=== PATIENT | male | born 1960 | race Caucasian/White ===

== ENCOUNTER 2017-12-09 04:55 | Emergency (ER) | payer MEDICAID, OTHER ==
[~2017-12-09] VITALS: Ht 167.6 cm; Wt 63.5 kg
[2017-12-09] MEDS ORDERED: LIDOCAINE 1% INJ 20 ML (XYLOCAINE) VIAL INJ STA (05:07)
[2017-12-09] MEDS ORDERED: AMIT25TA9 (05:15)
[2017-12-09] MEDS ORDERED: CYCL10TA9 (05:15)
[2017-12-09] MEDS ORDERED: TRAM50TA2 (05:15)
[2017-12-09] MEDS ORDERED: OXYC10TA7 (05:15)
[2017-12-09] MEDS ORDERED: LIDOCAINE 1% INJ 50 ML (XYLOCAINE) VIAL ONE (05:20)
--- NOTE | 2017-12-09 05:24 | ED Integumentary General ---
General Chief Complaint: Bite-Animal/Human/Insect Stated Complaint: POSS SPIDER BITE Source: patient Exam Limitations: no limitations History of Present Illness Date Seen by Provider: Dec 09, 2017 Time Seen by Provider: 05:02 Initial Comments Here with report of wound to the left knee just distal to the knee joint. This is been going on for about 5 days. States it was quite swollen before but he lanced is a little bit and now it is draining purulent material. He states when he lanced it drained quite a bit. Onset after having to by mouth and [place] bathroom floor. Denies fevers. Timing/Duration: week, getting worse Severity: moderate Location: extremities Associated Symptoms: change in skin texture, edema, No fever Allergies and Home Medications Allergies Coded Allergies: No Known Drug Allergies (Unverified , 12/09/17) Home Medications Sulfamethoxazole/Trimethoprim 1 Each Tablet, 1 EACH PO BID Prescribed by: ENDY CORDON on 12/09/17 0527 Patient Home Medication List Home Medication List Reviewed: Yes Constitutional: see HPI, No chills, No fever Respiratory: no symptoms reported Cardiovascular: no symptoms reported Gastrointestinal: no symptoms reported Skin: see HPI, change in color, lesions Psychiatric/Neurological: No Symptoms Reported Past Pjorzpl-Ugvhfs-Ytwsab Hx Patient Social History Alcohol Use: Occasionally Uses Recreational Drug Use: No Smoking Status: Current Everyday Smoker Type Used: Cigarettes 2nd Hand Smoke Exposure: Yes Recent Foreign Travel: No Contact w/Someone Who Travel: No Recent Hopitalizations: No Immunizations Up To Date Tetanus Booster (TDap): Unknown Seasonal Allergies Seasonal Allergies: No Surgeries History of Surgeries: Yes Surgeries: Abdominal, Appendectomy, Orthopedic Respiratory History of Respiratory Disorde: No Cardiovascular History of Cardiac Disorders: No Neurological History of Neurological Disord: No Genitourinary History of Genitourinary Disor: No Gastrointestinal History of Gastrointestinal Di: No Musculoskeletal History of Musculoskeletal Dis: No Endocrine History of Endocrine Disorders: No HEENT History of HEENT Disorders: No Cancer History of Cancer: No Psychosocial History of Psychiatric Problem: No Integumentary History of Skin or Integumenta: No Blood Transfusions History of Blood Disorders: No Reviewed Nursing Assessment Reviewed/Agree w Nursing PMH: Yes Family Medical History Significant Family History: No Pertinent Family Hx Physical Exam Vital Signs Vital Signs - First Documented 12/09/17 05:05 Temp 97.5 Pulse 84 Resp 18 B/P (MAP) 141/84 (103) Pulse Ox 95 O2 Delivery Room Air Capillary Refill : General Appearance: WD/WN, no apparent distress Cardiovascular: regular rate, rhythm, no murmur Respiratory: lungs clear, normal breath sounds Gastrointestinal: non tender, soft Extremities: swelling, other (tenderness just below the left knee where there is a wound described below) Neurologic/Psychiatric: alert, oriented x 3 Skin: warm/dry Skin Problem Location: lower extremities (just distal to the left knee) Skin Problem Character: abscess, drainage (foul-smelling purulent), erythema ( 4 x 4 centimeters), other (2 x 2 centimeter central wound started by 2 cm of induration and 4 cm of erythema.) I&D : Site: left knee distal to the joint anteriorly Blade Size: 11 I & D Procedure: betadine prep, sterile dressing applied, Wound Packing Packing/Drain: Idoform 10/03 Progress Anesthetized with 10 mL local 1 percent lidocaine plain. Good anesthesia. Open with 11 blade. Small amount of purulent drainage obtained. Cystic cavity removed. Packed with quarter inch iodoform and cover with antibiotic ointment and dressing. Progress/Results/Core Measures Results/Orders My Orders Orders - ENDY CORDON MD Lidocaine 1% Injection (Xylocaine 1% Inj (12/09/17 05:07) Wound Culture (12/09/17 05:07) Lidocaine 1% (Xylocaine 1%) (12/09/17 05:20) Sulfamethoxazole/Trimet Ds Tab (Bactrim (12/09/17 05:28) Medications Given in ED Current Medications Medications Dose Ordered Sig/Dor[place]a Route Start Time Stop Time Status Last Admin Dose Admin Lidocaine HCl 50 ml STK-MED ONCE .ROUTE 12/09/17 05:20 12/09/17 05:23 DC 12/09/17 05:25 50 ML Vital Signs/I&O Vital Sign - Last 12Hours 12/09/17 05:05 Temp 97.5 Pulse 84 Resp 18 B/P (MAP) 141/84 (103) Pulse Ox 95 O2 Delivery Room Air Progress Note : Progress Note Seen and evaluated. I&D left knee after cleaning and local anesthesia. Wound culture obtained. Wound packed and covered with sterile dressing. Bactrim DS one tab by mouth given. Discharged home with return precautions. Patient verbalize understanding instructions and agreement with plan. Departure Impression Impression: Primary Impression: Abscess Disposition: 01 HOME, SELF-CARE Condition: Improved Departure-Patient Inst. Decision time for Depature: 05:58 Referrals: NO,LOCAL PHYSICIAN (PCP) Primary Care Physician Patient Instructions: Abscess Incision and Drainage (DC) Add. Discharge Instructions: All discharge instructions reviewed with patient and/or family. Voiced understanding. Take antibiotics as directed. Follow-up with your Dr. in a few days for recheck. Return to days for packing removal. Return for worse pain, fever, increasing redness, increased swelling or other concerns as needed. You may shower but do not soak wound. Packing falls out, you may rinse the wound out twice daily and cover with antibiotic ointment and dressing until healed. Scripts Sulfamethoxazole/Trimethoprim (Sulfamethoxazole-Tmp Ds Tablet) 1 Each Tablet 1 EACH PO BID, #14 TAB 0 Refills Prov: ENDY CORDON MD 12/09/17 ENDY CORDON MD Dec 09, 2017 05:24
[2017-12-09] MEDS ORDERED: SULF-222 PO (05:27)
[2017-12-09] MEDS ORDERED: TRIM/SULFAMETH 160/800 (SEPTRA DS) TAB PO STA (05:28)
[2017-12-09 06:01] VITALS: BP 141/84
--- OUTSIDE RECORDS SUMMARY | 2017-12-09 10:51 | XMS REPORT ---
Author Author [facility] Medical Staff Organization [facility] [employer] [facility] Address [address] [place], [place] [address] Phone [phone] Care Team Providers Care Ripsaw Operator Name Role Phone LITA NELSON, ROBERT PP [phone] Summary purpose TRANSITION OF CARE AUTO GENERATION Chief Complaint and Reason for Visit No authorized Reason for Visit (Admitting Diagnosis) is available for this visit. Problem list No authorized problems tracked for continuity of care are available for this visit. Encounters No authorized problems tracked for encounter diagnoses are available for this visit. Medications No medications recorded for this patient visit Allergies, adverse reactions, alerts Allergen Category Ingredient Status Reaction Severity Onset No Known Drug Allergies No known drug allergies No Known Drug Allergies Confirmed or Verified Immunizations No immunizations recorded for this patient visit Relevant diagnostic tests and/or laboratory data RESULTS Radiology Results [id number] LOWER LEG XRAY - 2 VIEW PACs Image DATE OF EXAM: May 09 2015 RAD 0995-LOWER LEG XRAY-2 VIEW- RIGHT: RADIOLOGY REPORT DATE OF SERVICE: 05/09/15 HISTORY: Right lower leg pain. RIGHT TIBIA AND FIBULA AP AND LATERAL 1038 HOURS There is no fracture or foreign body. There is minimal periosteal new bone along the medial cortex of the tibia just proximal to the level of the midshaft. No foreign body is evident. IMPRESSION: No acute bony abnormality. Minimal periosteal reaction along the medial tibial shaft. Clinical correlation as to possible stress fracture is recommended. No acute fracture or foreign body. Nikolas Rojas MD MWCallie/me05/09/2015 12:05:00 / 05/09/2015 12:39:36 cc:Mehdi Murray PA-C This document has been electronically Signed by: On: DATE OF EXAM: May 09 2015 RAD 0995-LOWER LEG XRAY-2 VIEW- RIGHT: RADIOLOGY REPORT DATE OF SERVICE: 05/09/15 HISTORY: Right lower leg pain. RIGHT TIBIA AND FIBULA AP AND LATERAL 1038 HOURS There is no fracture or foreign body. There is minimal periosteal new bone along the medial cortex of the tibia just proximal to the level of the midshaft. No foreign body is evident. IMPRESSION: No acute bony abnormality. Minimal periosteal reaction along the medial tibial shaft. Clinical correlation as to possible stress fracture is recommended. No acute fracture or foreign body. Nikolas Rojas MD MWCallie/nh05/09/2015 12:05:00 / 05/09/2015 12:39:36 cc:Mehdi Murray PA-C This document has been electronically Signed by: NIKOLAS ROJAS On: May 09 20153:42P Result Amended on 2015-05-09 at 15:42:51. Previous status was [place]. History of procedures No procedures recorded for this patient visit. Functional status No functional or cognitive status observations are available for this visit. Vital signs No authorized vital signs are available for this visit. Social history No Social History or smoking status observations were recorded for this visit. ( Unknown if ever smoked.) Treatment Plan No treatment plan text is available for this visit. Hospital discharge instructions No discharge instruction text is available for this visit.
--- OUTSIDE RECORDS SUMMARY | 2017-12-09 10:51 | XMS REPORT ---
Author Author [facility] Medical Staff Organization [facility] [facility] Address [address] [place], [place] [address] Phone [phone] Care Team Providers Care Glove Maker Name Role Phone ROBERT LONDON MD PP [phone] Summary purpose TRANSITION OF CARE AUTO GENERATION Chief Complaint and Reason for Visit Admit Diagnosis 1 PAIN IN LIMB Problem list No authorized problems tracked for [...] tests and/or laboratory data RESULTS Radiology Results [id number] LOWER LEG XRAY - 2 VIEW PACs [...] fracture or foreign body. Nikolas Rojas MD MWCallie/tx05/09/2015 12:05:00 / 05/09/2015 12:39:36 cc:Jean Cardenas PA-C This document has been electronically Signed [...] fracture or foreign body. Nikolas Rojas MD MWD/nh05/09/2015 12:05:00 / 05/09/2015 12:39:36 cc:Jean Cardenas PA-C This document has been electronically Signed by: NIKOLAS ROJAS On: May 09 20153:42P Result Amended on 2015-05-09 at 15:42:51. Previous status was [place]. History of procedures Procedure Code Code Type Description Date Performed Performing Physician 18824 CPT-4 X-RAY EXAM OF LOWER LEG 05-09-2015 JEAN CARDENAS Functional status No functional or cognitive status [...]
--- OUTSIDE RECORDS SUMMARY | 2017-12-09 10:51 | XMS REPORT | Continuity of Care Document ---
Author Author [facility] Address Unknown Phone Unavailable Allergies Active Description Code Type Severity Reaction Onset Reported/Identified Relationship to Patient Clinical Status Yes No Known Drug Allergies [id number] ND N/A N/A Confirmed or Verified Medications There is no data. Problems Date Dx Coded Attending Type Code Diagnosis Diagnosed By 07/01/2013 LAURA CORRALES DO 724.2 BACK PAIN, LOWER 07/01/2013 LAURA CORRALES DO 724.2 BACK PAIN, LOWER 07/01/2013 LAURA CORRALES DO 724.2 BACK PAIN, LOWER 07/01/2013 ORLANDO MATHUR MD 724.2 BACK PAIN, LOWER 07/09/2013 LAURA CORRALES DO 724.4 BACK PAIN WITH RADIATION 07/09/2013 LAURA CORRALES DO 724.4 BACK PAIN WITH RADIATION 07/09/2013 ORLANDO MATHUR MD 724.4 BACK PAIN WITH RADIATION Procedures Code Description Performed By Performed On PHYSICAL PHYSICAL THERAPY, 07/05/2013 09255 MRI SPINE (LUMBAR) W/O CONTRAST 07/14/2013 26541 CBC 12/09/2013 70948 CRP 12/09/2013 [id number] GFR CALC (RESULT ONLY) 12/09/2013 33805 CMP 12/09/2013 Results There is no data. Encounters ACCT No. Visit Date/Time Discharge Status Pt. Type Provider Facility Loc./Unit Complaint [id number] 12/09/2013 14:17:00 12/09/2013 23:59:59 CLS Outpatient ORLANDO MATHUR MD [id number] 07/22/2013 09:42:00 07/22/2013 23:59:59 CLS Outpatient LAURA CORRALES DO [id number] 07/09/2013 11:32:00 07/09/2013 23:59:59 CLS Outpatient LAURA CORRALES DO [id number] 07/01/2013 08:46:00 07/01/2013 23:59:59 CLS Outpatient LAURA CORRALES DO [id number] 05/09/2015 10:21:00 05/09/2015 10:21:00 DIS Outpatient JEAN CARDENAS [facility] RAD [id number] 04/18/2015 12:58:00 04/18/2015 12:58:00 DIS Outpatient ABI PORRAS [facility] RAD [id number] 09/20/2014 15:28:00 09/20/2014 16:16:00 DIS Emergency LINDSEY SPARROW [facility] EMR [id number] 09/15/2014 08:25:00 09/15/2014 13:05:00 DIS Outpatient NEEMA ALFARO [facility] OPS
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
== END 2017-12-09 05:56 | disposition home or self-care (01) ==
LOC: ER 05:01
DX: L02.416 Cutaneous abscess of left lower limb (principal); F17.210 Nicotine dependence, cigarettes, uncomplicated; Z90.49 Acquired absence of other specified parts of digestive tract
CPT/HCPCS: 56420; 87070; 87077; 87186; 87205

== ENCOUNTER 2017-12-11 15:39 | Emergency (ER) | payer MEDICAID ==
[~2017-12-11] VITALS: Ht 165.1 cm; Wt 63.5 kg
[~2017-12-11 15:39] MED LIST: AMIT25TA9; CYCL10TA9; OXYC10TA7; SULF-222 PO; TRAM50TA2
--- OUTSIDE RECORDS SUMMARY | 2017-12-11 15:43 | XMS REPORT | Continuity of Care Document ---
Author Author [facility] Address Unknown Phone Unavailable Allergies Active Description Code Type Severity Reaction Onset Reported/Identified Relationship to Patient Clinical Status Yes No Known Drug Allergies [id number] ND N/A N/A Confirmed or Verified Medications [...] By Performed On PHYSICAL PHYSICAL THERAPY, 07/05/2013 79001 MRI SPINE (LUMBAR) W/O CONTRAST 07/14/2013 27731 CBC 12/09/2013 11160 CRP 12/09/2013 [id number] GFR CALC (RESULT ONLY) 12/09/2013 16220 CMP 12/09/2013 Results There is no data. Encounters ACCT No. Visit Date/Time Discharge Status Pt. Type Provider Facility Loc./Unit Complaint [id number] 12/09/2013 14:17:00 12/09/2013 23:59:59 CLS Outpatient ORLANDO MATHUR MD [id number] 07/22/2013 09:42:00 07/22/2013 23:59:59 CLS Outpatient LAURA CORRALES DO [id number] 07/09/2013 11:32:00 07/09/2013 23:59:59 CLS Outpatient LAURA CORRALES DO [id number] 07/01/2013 08:46:00 07/01/2013 23:59:59 CLS Outpatient LAURA CORRALES DO [id number] 05/09/2015 10:21:00 05/09/2015 10:21:00 DIS Outpatient JEAN CARDENAS [facility] RAD [id number] 04/18/2015 12:58:00 04/18/2015 12:58:00 DIS Outpatient ABI PORRAS [facility] RAD [id number] 09/20/2014 15:28:00 09/20/2014 16:16:00 DIS Emergency LINDSEY SPARROW [facility] EMR [id number] 09/15/2014 08:25:00 09/15/2014 13:05:00 DIS Outpatient NEEMA ALFARO [facility] OPS
--- NOTE | 2017-12-11 16:36 | ED Suture Removal/Wound Check ---
Suture/Wound Re-check Suture Removal/Wound Recheck : Suture Removal/Wound Recheck: Dry/sterile dressing-appl Progress Patient had an abscess drained 2 days ago in the ER and had it packed. Wound is healing remarkably well. He is not having any fevers, nausea, vomiting, chills. He is here for a wound check. He is taking his Bactrim antibiotics appropriately. General Appearance: WD/WN, no apparent distress, mild distress Neuro/Tendon: normal sensation, normal motor functions, normal tendon functions , responds to pain, no evidence tendon injury Skin Exam: other (packed healing wound over the left anterior knee. No erythema , purulence. Wound is clean.) Physical Exam Vital Signs Vital Signs - First Documented 12/11/17 15:53 Pulse 92 Resp 18 B/P (MAP) 138/98 Pulse Ox 99 Capillary Refill : General Appearance: WD/WN, no apparent distress HEENT: PERRL/EOMI, normal ENT inspection, TMs normal, pharynx normal Cardiovascular: normal peripheral pulses, regular rate, rhythm Respiratory: no respiratory distress, no accessory muscle use Extremities: normal range of motion, non-tender, normal capillary refill Neurologic/Psychiatric: alert, oriented x 3 Skin: other Departure Impression Impression: Primary Impression: Abscess Disposition: 01 HOME, SELF-CARE Condition: Improved Departure-Patient Inst. Decision time for Depature: 16:35 Referrals: NO,LOCAL PHYSICIAN (PCP) Primary Care Physician Patient Instructions: Wound Care (DC) Add. Discharge Instructions: Shower once or twice a day and allow soap water to run over the wound. If any of the packing comes out just trim it off. If the packing falls out then throw it away. Keep a clean dry gauze dressing over the wound. Change it daily or if it becomes soiled. Return to the ER if you begin to experience worsening redness , swelling at the site or if you have fevers, nausea, vomiting or other worrisome symptoms. Follow-up with your primary care physician the next couple weeks. All discharge instructions reviewed with patient and/or family. Voiced understanding. LILIBETH VEGAS Dec 11, 2017 16:36
[2017-12-11 16:43] VITALS: BP 138/98
== END 2017-12-11 16:43 | disposition home or self-care (01) ==
LOC: EDUNIT# 15:39 → ER 15:40
DX: L02.416 Cutaneous abscess of left lower limb (principal)

== ENCOUNTER 2018-05-17 02:48 | Emergency (ER) | payer MEDICAID ==
[~2018-05-17] VITALS: Ht 165.1 cm; Wt 61.2 kg
--- OUTSIDE RECORDS SUMMARY | 2018-05-17 02:56 | XMS REPORT | Clinical Summary ---
Author Author Admin, Lisa Organization [employer] Address Unknown Phone Unavailable Allergies, Adverse Reactions, Alerts Allergy Name Reaction Description Start Date Severity Status Provider No Known Allergies Chasidy Rizvi RN Conditions or Problems Problem Name Problem Code Onset Date Status Entry Date Provider Comment Standard Description Annotate HYPERTENSION 401.9 Active Bernardo Cotto MD Unspecified essential hypertension ABSCESS, TOOTH 522.5 Active Bernardo Cotto MD Periapical abscess without sinus Cough 786.2 Active Stefanie Britton APRN Cough Abdominal pain, generalized 789.07 Active Stefanie Britton APRN Abdominal pain, generalized Helicobacter pylori gastritis 535.40 Active Stefanie Britton APRN Other specified gastritis, without mention of hemorrhage FH Breast Cancer V16.3 Active Shira Gil APRN Family history of malignant neoplasm of breast GERD 530.81 Active Shira Gil APRN Esophageal reflux Change in bowels 787.99 Active Shira Gil APRN Other symptoms involving digestive system Medication List Medication Instructions Start Date Stop Date Generic Name NDC Status Provider Patient Instruction CARAFATE 1 GM TAB 1 QID SUCRALFATE 36810165046 No Longer Active Shira Gil APRN Active OMEPRAZOLE 20 MG CPDR 1 tablet by mouth twice daily OMEPRAZOLE 28751209245 No Longer Active Stefanie Britton APRN Active CLARITHROMYCIN 500 MG TABS 1 tablet by mouth twice daily CLARITHROMYCIN 56833207881 No Longer Active Stefanie Britton APRN Active AMOXICILLIN 500 MG CAPS 2 po BID x 10 days AMOXICILLIN 32222351461 No Longer Active Stefanie Yokum JEWELRY ESTIMATOR Active ZITHROMAX 250 MG TAB 2 po today, then 1 po q days 2-5 AZITHROMYCIN 72960544643 No Longer Active Stefanie Yokum JEWELRY ESTIMATOR Active AMOXICILLIN 500 MG CAP 1 tab by mouth 3 times daily x 10 days AMOXICILLIN 22162499427 No Longer Active Stefanie Yokum JEWELRY ESTIMATOR Active LORTAB 5 5-500 MG TABS 1 tablet by mouth every 6 hours as needed for pain HYDROCODONE-ACETAMINOPHEN 58793041944 No Longer Active Stefanie Yokum JEWELRY ESTIMATOR Active LORTAB 5 5-500 MG TABS 1 tablet by mouth every 6 hours as needed for pain LORTAB 5 5-500 MG TABS HYDROCODONE-ACETAMINOPHEN Inactive AMOXICILLIN 500 MG CAP 1 tab by mouth 3 times daily x 10 days AMOXICILLIN 500 MG CAP 778324 AMOXICILLIN Inactive CARAFATE 1 GM TAB 1 QID CARAFATE 1 GM TAB 079618 SUCRALFATE Inactive ZITHROMAX 250 MG TAB 2 po today, then 1 po q days 2-5 ZITHROMAX 250 MG TAB 8383607 AZITHROMYCIN Inactive AMOXICILLIN 500 MG CAPS 2 po BID x 10 days AMOXICILLIN 500 MG CAPS 469251 AMOXICILLIN Inactive CLARITHROMYCIN 500 MG TABS 1 tablet by mouth twice daily CLARITHROMYCIN 500 MG TABS 960362 CLARITHROMYCIN Inactive OMEPRAZOLE 20 MG CPDR 1 tablet by mouth twice daily OMEPRAZOLE 20 MG CPDR 203705 OMEPRAZOLE Inactive Vital Signs Date Name Value Unit Range Description blood pressure, diastolic - 8462-4 94 mm[Hg] BP naik blood pressure, systolic - 8480-6 161 mm[Hg] BP sys pulse rate E&M - 8867-4 73 /min Heart rate temperature E&M 98.9 [degF] Body temperature weight E&M - 3141-9 156 [lb_av] Weight Measured blood pressure, diastolic - 8462-4 87 mm[Hg] BP naik blood pressure, systolic - 8480-6 131 mm[Hg] BP sys pulse rate E&M - 8867-4 67 /min Heart rate temperature E&M 97.7 [degF] Body temperature weight E&M - 3141-9 156 [lb_av] Weight Measured blood pressure, diastolic - 8462-4 92 mm[Hg] BP naik blood pressure, systolic - 8480-6 138 mm[Hg] BP sys pulse rate E&M - 8867-4 74 /min Heart rate temperature E&M 99.1 [degF] Body temperature weight E&M - 3141-9 161 [lb_av] Weight Measured Diagnostic Results Date Name Value Unit Range Description Lab Report: CBC W/DIFF, Comp. Metabolic Panel, Myco Pneumo, RapidStrep R ... - Chemistry sodium, serum 137 mmol/L 899-687 0272/11/10 potassium, serum 3.9 mmol/L 3.5-5.2 chloride, serum 100 mmol/L 98-107 carbon dioxide, venous blood 27.8 mmol/L 21.0-32.0 blood glucose 149 mg/dL 65-110 urea nitrogen, blood 10 mg/dL 7-18 creatinine, serum 0.80 mg/dL 0.60-1.30 alanine aminotransferase (SGPT), serum 38 U/L 12-78 aspartate aminotransferase (SGOT), serum 49 U/L 15-37 calcium, serum 8.5 mg/dL 8.5-10.1 bilirubin, serum, total 0.70 mg/dL 0.00-1.00 Lab Report: CBC W/DIFF, Comp. Metabolic Panel, Myco Pneumo, RapidStrep R ... - Hematology leukocyte count, blood 9.4 10^3/MM^3 10*3/mm3 4.6-10.2 neutrophils as percent of blood leukocytes 72.4 % 42.2-75.2 monocytes as percent of blood leukocytes 9.2 % 1.7-9.3 lymphocytes as percent of blood leukocytes 15.0 % 20.5-51.1 erythrocyte (RBC) count 4.61 10^6/MM^3 10*6/mm3 4.69-6.13 hemoglobin, blood 16.4 g/dL 13.5-17.5 hematocrit, blood 47.6 % 41.0-53.0 mean corpuscular volume, RBC 103 fL 80-97 mean corpuscular hemoglobin, RBC 35.6 pg 27.0-31.2 mean corpuscular hemoglobin concentration, RBC 34.5 G/DL % 31.8- 35.4 red blood cell distribution width 12.5 % 11.6-14.8 platelet count 111 10^3/MM^3 10*3/mm3 142-424 Lab Report: CBC W/DIFF, Comp. Metabolic Panel, Myco Pneumo, RapidStrep R ... - Lab Microbial identification kit, rapid strep method Negative-Throat Culture to Follow Negative Lab Report: ALFREDO INFLUENZA A/B - Toxicology rapid flu test Negative Negative;Positive Encounters Code Encounter Date Provider Facility CPT-91053 Level 4 Est. 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 Patient 09:26:18 AMMONIA REFRIGERATION WORKER Stefanie Britton [facility] CPT-42037 Level 3 Est. Patient 12:50:55 CDT Bernardo Cotto MD [facility] Procedures Code Procedure Name Date Entry Date Standard Description CPT-OV Office Visit 14:52:05 AMMONIA REFRIGERATION WORKER CPT-OV Office Visit 16:11:48 AMMONIA REFRIGERATION WORKER CPT-20339 Chest 2V Frontal and Lat 15:38:01 AMMONIA REFRIGERATION WORKER
--- OUTSIDE RECORDS SUMMARY | 2018-05-17 02:56 | XMS REPORT | Clinical Summary ---
Author Author Admin, E Organization [employer] Address Unknown Phone Unavailable Allergies, Adverse Reactions, Alerts Allergy Name Reaction Description Start Date Severity Status Provider No Known Allergies DIONI Urbano Conditions or Problems Problem Name Problem Code Onset Date Status Entry Date Provider Comment Standard Description Annotate HYPERTENSION 401.9 Active Bernardo Cotto MD Unspecified essential hypertension ABSCESS, TOOTH 522.5 Active Bernardo Cotto MD Periapical abscess without sinus Cough 786.2 Active Stefanierubi Britton APRN Cough Abdominal pain, generalized 789.07 [...] CARAFATE 1 GM TAB 1 QID SUCRALFATE 74712510930 No Longer Active Shira Gil APRN Active OMEPRAZOLE 20 MG CPDR 1 tablet by mouth twice daily OMEPRAZOLE 11461217007 No Longer Active Stefanie Britton APRN Active CLARITHROMYCIN 500 MG TABS 1 tablet by mouth twice daily CLARITHROMYCIN 47919859130 No Longer Active Stefanie Britton APRN Active AMOXICILLIN 500 MG CAPS 2 po BID x 10 days AMOXICILLIN 08400299274 No Longer Active Stefanie Yokum LEVERS LACE MACHINE OPERATOR Active ZITHROMAX 250 MG TAB 2 po today, then 1 po q days 2-5 AZITHROMYCIN 80625639461 No Longer Active Stefanie Yokum LEVERS LACE MACHINE OPERATOR Active AMOXICILLIN 500 MG CAP 1 tab by mouth 3 times daily x 10 days AMOXICILLIN 92135680052 No Longer Active Stefanie Yokum LEVERS LACE MACHINE OPERATOR Active LORTAB 5 5-500 MG TABS 1 tablet by mouth every 6 hours as needed for pain HYDROCODONE-ACETAMINOPHEN 16791475145 No Longer Active Stefanie Yokum LEVERS LACE MACHINE OPERATOR Active LORTAB 5 5-500 MG TABS 1 tablet by mouth every 6 hours as needed for pain LORTAB 5 5-500 MG TABS HYDROCODONE-ACETAMINOPHEN Inactive AMOXICILLIN 500 MG CAP 1 tab by mouth 3 times daily x 10 days AMOXICILLIN 500 MG CAP 540002 AMOXICILLIN Inactive CARAFATE 1 GM TAB 1 QID CARAFATE 1 GM TAB 071591 SUCRALFATE Inactive ZITHROMAX 250 MG TAB 2 po today, then 1 po q days 2-5 ZITHROMAX 250 MG TAB 9797524 AZITHROMYCIN Inactive AMOXICILLIN 500 MG CAPS 2 po BID x 10 days AMOXICILLIN 500 MG CAPS 472674 AMOXICILLIN Inactive CLARITHROMYCIN 500 MG TABS 1 tablet by mouth twice daily CLARITHROMYCIN 500 MG TABS 998881 CLARITHROMYCIN Inactive OMEPRAZOLE 20 MG CPDR 1 tablet by mouth twice daily OMEPRAZOLE 20 MG CPDR 775011 OMEPRAZOLE Inactive Vital Signs Date Name Value [...] ... - Chemistry sodium, serum 137 mmol/L 149-993 3174/11/10 potassium, serum 3.9 mmol/L 3.5-5.2 chloride, serum [...] Myco Pneumo, RapidStrep R ... - Hematology hemoglobin, blood 16.4 g/dL 13.5-17.5 hematocrit, blood 47.6 % 41.0-53.0 mean corpuscular volume, RBC 103 fL 80-97 mean corpuscular hemoglobin, RBC 35.6 pg 27.0-31.2 mean corpuscular hemoglobin concentration, RBC 34.5 G/DL % 31.8- 35.4 red blood cell distribution width 12.5 % 11.6-14.8 platelet count 111 10^3/MM^3 10*3/mm3 733-949 9733/11/10 erythrocyte (RBC) count 4.61 10^6/MM^3 10*6/mm3 4.69-6.13 lymphocytes as percent of blood leukocytes 15.0 % 20.5-51.1 monocytes as percent of blood leukocytes 9.2 % 1.7-9.3 neutrophils as percent of blood leukocytes 72.4 % 42.2-75.2 leukocyte count, blood 9.4 10^3/MM^3 10*3/mm3 4.6-10.2 Lab Report: CBC W/DIFF, Comp. Metabolic Panel, Myco Pneumo, RapidStrep R ... - Lab Microbial identification kit, rapid strep method Negative-Throat Culture to Follow Negative Lab Report: ALFREDO INFLUENZA A/B - Toxicology rapid flu test Negative Negative;Positive Encounters Code Encounter Date Provider Facility CPT-23769 Level 4 Est. 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 Patient 09:26:18 WELDER FIRST CLASS Stefanie Britton [facility] CPT-66078 Level 3 Est. Patient 12:50:55 CDT Bernardo Cotto MD [facility] Procedures Code Procedure Name Date Entry Date Standard Description CPT-OV Office Visit 16:11:48 WELDER FIRST CLASS CPT-84071 Chest 2V Frontal and Lat 15:38:01 WELDER FIRST CLASS
--- OUTSIDE RECORDS SUMMARY | 2018-05-17 02:56 | XMS REPORT | Clinical Summary ---
Author Author Admin, E Organization [employer] Address Unknown Phone Unavailable Allergies, Adverse Reactions, [...] CARAFATE 1 GM TAB 1 QID SUCRALFATE 90736502141 No Longer Active Shira Gil APRN Active OMEPRAZOLE 20 MG CPDR 1 tablet by mouth twice daily OMEPRAZOLE 36116505442 No Longer Active Stefanie Britton APRN Active CLARITHROMYCIN 500 MG TABS 1 tablet by mouth twice daily CLARITHROMYCIN 87506065363 No Longer Active Stefanie Britton APRN Active AMOXICILLIN 500 MG CAPS 2 po BID x 10 days AMOXICILLIN 36438512806 No Longer Active Stefanie Yokum SENIOR INFORMATION SECURITY ARCHITECT Active ZITHROMAX 250 MG TAB 2 po today, then 1 po q days 2-5 AZITHROMYCIN 02186301181 No Longer Active Stefanie Yokum SENIOR INFORMATION SECURITY ARCHITECT Active AMOXICILLIN 500 MG CAP 1 tab by mouth 3 times daily x 10 days AMOXICILLIN 49351943367 No Longer Active Stefanie Yokum SENIOR INFORMATION SECURITY ARCHITECT Active LORTAB 5 5-500 MG TABS 1 tablet by mouth every 6 hours as needed for pain HYDROCODONE-ACETAMINOPHEN 05646862933 No Longer Active Stefanie Yokum SENIOR INFORMATION SECURITY ARCHITECT Active LORTAB 5 5-500 MG TABS 1 tablet by mouth every 6 hours as needed for pain LORTAB 5 5-500 MG TABS HYDROCODONE-ACETAMINOPHEN Inactive AMOXICILLIN 500 MG CAP 1 tab by mouth 3 times daily x 10 days AMOXICILLIN 500 MG CAP 805682 AMOXICILLIN Inactive CARAFATE 1 GM TAB 1 QID CARAFATE 1 GM TAB 679587 SUCRALFATE Inactive ZITHROMAX 250 MG TAB 2 po today, then 1 po q days 2-5 ZITHROMAX 250 MG TAB 3867792 AZITHROMYCIN Inactive AMOXICILLIN 500 MG CAPS 2 po BID x 10 days AMOXICILLIN 500 MG CAPS 347819 AMOXICILLIN Inactive CLARITHROMYCIN 500 MG TABS 1 tablet by mouth twice daily CLARITHROMYCIN 500 MG TABS 460433 CLARITHROMYCIN Inactive OMEPRAZOLE 20 MG CPDR 1 tablet by mouth twice daily OMEPRAZOLE 20 MG CPDR 520589 OMEPRAZOLE Inactive Vital Signs Date Name Value [...] ... - Chemistry sodium, serum 137 mmol/L 717-182 5579/11/10 potassium, serum 3.9 mmol/L 3.5-5.2 chloride, serum [...] Negative;Positive Encounters Code Encounter Date Provider Facility CPT-79124 Level 4 Est. 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 Patient 09:26:18 ELEMENTARY ELL TEACHER Stefanie Britton [facility] CPT-67537 Level 3 Est. Patient 12:50:55 CDT Bernardo Cotto MD [facility] Procedures Code Procedure Name Date Entry Date Standard Description CPT-OV Office Visit 16:11:48 ELEMENTARY ELL TEACHER CPT-60368 Chest 2V Frontal and Lat 15:38:01 ELEMENTARY ELL TEACHER
--- OUTSIDE RECORDS SUMMARY | 2018-05-17 02:56 | XMS REPORT | Clinical Summary ---
Author Author Admin, JOEE Organization [employer] Address Unknown Phone Unavailable Allergies, Adverse Reactions, Alerts Allergy Name Reaction Description Start Date Severity Status Provider No Known Allergies DIONI Tse Conditions or Problems Problem Name Problem Code Onset Date Status Entry Date Provider Comment Standard Description Annotate HYPERTENSION 401.9 Active Bernardo Cotto MD Unspecified essential hypertension ABSCESS, TOOTH 522.5 Active Bernardo Cotto MD Periapical abscess without sinus Cough 786.2 Active Stefanie Mauricioum DIP FILLER Cough Abdominal pain, generalized 789.07 Active Stefanie Yokum DIP FILLER Abdominal pain, generalized Medication List Medication Instructions Start Date Stop Date Generic Name NDC Status Provider Patient Instruction CARAFATE 1 GM TAB 1 QID SUCRALFATE 88085063845 Active Stefanie Yokum DIP FILLER Active ZITHROMAX 250 MG TAB 2 po today, then 1 po q days 2-5 AZITHROMYCIN 15863881221 No Longer Active Stefanie Yokum DIP FILLER Active AMOXICILLIN 500 MG CAP 1 tab by mouth 3 times daily x 10 days AMOXICILLIN 68861766550 No Longer Active Stefanie Yokum DIP FILLER Active LORTAB 5 5-500 MG TABS 1 tablet by mouth every 6 hours as needed for pain HYDROCODONE-ACETAMINOPHEN 92026430009 No Longer Active Stefanie Yokum DIP FILLER Active LORTAB 5 5-500 MG TABS 1 tablet by mouth every 6 hours as needed for pain LORTAB 5 5-500 MG TABS HYDROCODONE-ACETAMINOPHEN Inactive AMOXICILLIN 500 MG CAP 1 tab by mouth 3 times daily x 10 days AMOXICILLIN 500 MG CAP 923418 AMOXICILLIN Inactive ZITHROMAX 250 MG TAB 2 po today, then 1 po q days 2-5 ZITHROMAX 250 MG TAB 5063619 AZITHROMYCIN Inactive Vital Signs Date Name Value Unit Range Description blood pressure, diastolic - 8462-4 92 mm[Hg] [...] ... - Chemistry sodium, serum 137 mmol/L 243-841 5641/11/10 potassium, serum 3.9 mmol/L 3.5-5.2 chloride, serum [...] Negative;Positive Encounters Code Encounter Date Provider Facility CPT-08658 Level 4 Est. Patient 15:21:08 PROJECT MANAGEMENT PROFESSOR Stefanie Britton [facility] CPT-32046 Level 3 Est. Patient 09:26:18 PROJECT MANAGEMENT PROFESSOR Stefanie Britton [facility] CPT-51488 Level 3 Est. Patient 12:50:55 CDT Bernardo Cotto MD [facility] Procedures Code Procedure Name Date Entry Date Standard Description CPT-89134 Chest 2V Frontal and Lat 15:38:01 PROJECT MANAGEMENT PROFESSOR
--- OUTSIDE RECORDS SUMMARY | 2018-05-17 02:56 | XMS REPORT | Clinical Summary ---
Author Author Admin, E Organization [employer] Address Unknown Phone Unavailable Allergies, Adverse Reactions, [...] CARAFATE 1 GM TAB 1 QID SUCRALFATE 66962518684 No Longer Active Shira Gil APRN Active OMEPRAZOLE 20 MG CPDR 1 tablet by mouth twice daily OMEPRAZOLE 02559200638 No Longer Active Stefanie Britton APRN Active CLARITHROMYCIN 500 MG TABS 1 tablet by mouth twice daily CLARITHROMYCIN 71942956761 No Longer Active Stefanie Britton APRN Active AMOXICILLIN 500 MG CAPS 2 po BID x 10 days AMOXICILLIN 21905081206 No Longer Active Stefanie Yokum PUBLIC WELFARE WORKER Active ZITHROMAX 250 MG TAB 2 po today, then 1 po q days 2-5 AZITHROMYCIN 30814977664 No Longer Active Stefanie Yokum PUBLIC WELFARE WORKER Active AMOXICILLIN 500 MG CAP 1 tab by mouth 3 times daily x 10 days AMOXICILLIN 21342564976 No Longer Active Stefanie Yokum PUBLIC WELFARE WORKER Active LORTAB 5 5-500 MG TABS 1 tablet by mouth every 6 hours as needed for pain HYDROCODONE-ACETAMINOPHEN 84989148488 No Longer Active Stefanie Yokum PUBLIC WELFARE WORKER Active LORTAB 5 5-500 MG TABS 1 tablet by mouth every 6 hours as needed for pain LORTAB 5 5-500 MG TABS HYDROCODONE-ACETAMINOPHEN Inactive AMOXICILLIN 500 MG CAP 1 tab by mouth 3 times daily x 10 days AMOXICILLIN 500 MG CAP 074588 AMOXICILLIN Inactive CARAFATE 1 GM TAB 1 QID CARAFATE 1 GM TAB 179489 SUCRALFATE Inactive ZITHROMAX 250 MG TAB 2 po today, then 1 po q days 2-5 ZITHROMAX 250 MG TAB 8107923 AZITHROMYCIN Inactive AMOXICILLIN 500 MG CAPS 2 po BID x 10 days AMOXICILLIN 500 MG CAPS 656634 AMOXICILLIN Inactive CLARITHROMYCIN 500 MG TABS 1 tablet by mouth twice daily CLARITHROMYCIN 500 MG TABS 788771 CLARITHROMYCIN Inactive OMEPRAZOLE 20 MG CPDR 1 tablet by mouth twice daily OMEPRAZOLE 20 MG CPDR 455298 OMEPRAZOLE Inactive Vital Signs Date Name Value [...] ... - Chemistry sodium, serum 137 mmol/L 070-472 2375/11/10 potassium, serum 3.9 mmol/L 3.5-5.2 chloride, serum [...] Negative;Positive Encounters Code Encounter Date Provider Facility CPT-65678 Level 4 Est. 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 Patient 09:26:18 MARKETING ANALYTICS ANALYST Stefanie Britton [facility] CPT-94321 Level 3 Est. Patient 12:50:55 CDT Bernardo Cotto MD [facility] Procedures Code Procedure Name Date Entry Date Standard Description CPT-OV Office Visit 16:11:48 MARKETING ANALYTICS ANALYST CPT-67885 Chest 2V Frontal and Lat 15:38:01 MARKETING ANALYTICS ANALYST
--- OUTSIDE RECORDS SUMMARY | 2018-05-17 02:57 | XMS REPORT | Clinical Summary ---
Author Author Admin, Lisa Organization [employer] Address Unknown Phone Unavailable Allergies, Adverse Reactions, Alerts Allergy Name Reaction Description Start Date Severity Status Provider No Known Allergies Junie López MA Conditions or Problems Problem Name Problem Code [...] malignant neoplasm of breast GERD 530.81 Active Shria Gil APRN Esophageal reflux Change in bowels 787.99 Active Shira Gil APRN Other symptoms involving digestive system Medication List Medication Instructions Start Date Stop Date Generic Name NDC Status Provider Patient Instruction CARAFATE 1 GM TAB 1 QID SUCRALFATE 17770135296 No Longer Active Shira Gil APRN Active OMEPRAZOLE 20 MG CPDR 1 tablet by mouth twice daily OMEPRAZOLE 78261289375 No Longer Active Stefanie Britton APRN Active CLARITHROMYCIN 500 MG TABS 1 tablet by mouth twice daily CLARITHROMYCIN 18834009550 No Longer Active Stefanie Britton APRN Active AMOXICILLIN 500 MG CAPS 2 po BID x 10 days AMOXICILLIN 05876747793 No Longer Active Stefanie Yokum ASSEMBLER FITTER Active ZITHROMAX 250 MG TAB 2 po today, then 1 po q days 2-5 AZITHROMYCIN 73957592556 No Longer Active Stefanie Yokum ASSEMBLER FITTER Active AMOXICILLIN 500 MG CAP 1 tab by mouth 3 times daily x 10 days AMOXICILLIN 39640351184 No Longer Active Stefanie Yokum ASSEMBLER FITTER Active LORTAB 5 5-500 MG TABS 1 tablet by mouth every 6 hours as needed for pain HYDROCODONE-ACETAMINOPHEN 59380495477 No Longer Active Stefanie Yokum ASSEMBLER FITTER Active LORTAB 5 5-500 MG TABS 1 tablet by mouth every 6 hours as needed for pain LORTAB 5 5-500 MG TABS HYDROCODONE-ACETAMINOPHEN Inactive AMOXICILLIN 500 MG CAP 1 tab by mouth 3 times daily x 10 days AMOXICILLIN 500 MG CAP 683961 AMOXICILLIN Inactive CARAFATE 1 GM TAB 1 QID CARAFATE 1 GM TAB 197657 SUCRALFATE Inactive ZITHROMAX 250 MG TAB 2 po today, then 1 po q days 2-5 ZITHROMAX 250 MG TAB 4627995 AZITHROMYCIN Inactive AMOXICILLIN 500 MG CAPS 2 po BID x 10 days AMOXICILLIN 500 MG CAPS 996500 AMOXICILLIN Inactive CLARITHROMYCIN 500 MG TABS 1 tablet by mouth twice daily CLARITHROMYCIN 500 MG TABS 503342 CLARITHROMYCIN Inactive OMEPRAZOLE 20 MG CPDR 1 tablet by mouth twice daily OMEPRAZOLE 20 MG CPDR 880771 OMEPRAZOLE Inactive Vital Signs Date Name Value Unit Range Description blood pressure, diastolic - 8462-4 87 mm[Hg] [...] ... - Chemistry sodium, serum 137 mmol/L 405-824 5430/11/10 potassium, serum 3.9 mmol/L 3.5-5.2 chloride, serum [...] Myco Pneumo, RapidStrep R ... - Hematology erythrocyte (RBC) count 4.61 10^6/MM^3 10*6/mm3 4.69-6.13 hemoglobin, blood 16.4 g/dL 13.5-17.5 hematocrit, blood 47.6 % 41.0-53.0 mean corpuscular volume, RBC 103 fL 80-97 mean corpuscular hemoglobin, RBC 35.6 pg 27.0-31.2 mean corpuscular hemoglobin concentration, RBC 34.5 G/DL % 31.8- 35.4 red blood cell distribution width 12.5 % 11.6-14.8 platelet count 111 10^3/MM^3 10*3/mm3 782-098 2214/11/10 lymphocytes as percent of blood leukocytes 15.0 [...] Negative;Positive Encounters Code Encounter Date Provider Facility CPT-68877 Level 4 Est. 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 Patient 09:26:18 CUSTOMER FACILITIES SUPERVISOR Stefanie Britton [facility] CPT-41230 Level 3 Est. Patient 12:50:55 CDT Bernardo Cotto MD [facility] Procedures Code Procedure Name Date Entry Date Standard Description CPT-OV Office Visit 16:11:48 CUSTOMER FACILITIES SUPERVISOR CPT-00379 Chest 2V Frontal and Lat 15:38:01 CUSTOMER FACILITIES SUPERVISOR
--- OUTSIDE RECORDS SUMMARY | 2018-05-17 02:57 | XMS REPORT | Clinical Summary ---
Author Author Admin, JANI Organization [employer] Address Unknown Phone Unavailable Allergies, Adverse Reactions, Alerts Allergy Name Reaction Description Start Date Severity Status Provider No Known Allergies DIONI Tse Conditions or Problems Problem Name Problem Code Onset Date Status Entry Date Provider Comment Standard Description Annotate HYPERTENSION 401.9 Active Bernardo Cotto MD Unspecified essential hypertension ABSCESS, TOOTH 522.5 Active Bernardo Cotto MD Periapical abscess without sinus Cough 786.2 Active Stefanie Yokum PROGRAM PROPOSALS COORDINATOR Cough Medication List Medication Instructions Start Date Stop Date Generic Name NDC Status Provider Patient Instruction ZITHROMAX 250 MG TAB 2 po today, then 1 po q days 2-5 AZITHROMYCIN 78560157988 No Longer Active Stefanie Yokum PROGRAM PROPOSALS COORDINATOR Active AMOXICILLIN 500 MG CAP 1 tab by mouth 3 times daily x 10 days AMOXICILLIN 24807370609 No Longer Active Stefanie Yokum PROGRAM PROPOSALS COORDINATOR Active LORTAB 5 5-500 MG TABS 1 tablet by mouth every 6 hours as needed for pain HYDROCODONE-ACETAMINOPHEN 89962030826 No Longer Active Stefanie Yokum PROGRAM PROPOSALS COORDINATOR Active LORTAB 5 5-500 MG TABS 1 tablet by mouth every 6 hours as needed for pain LORTAB 5 5-500 MG TABS HYDROCODONE-ACETAMINOPHEN Inactive AMOXICILLIN 500 MG CAP 1 tab by mouth 3 times daily x 10 days AMOXICILLIN 500 MG CAP 919424 AMOXICILLIN Inactive ZITHROMAX 250 MG TAB 2 po today, then 1 po q days 2-5 ZITHROMAX 250 MG TAB 4664175 AZITHROMYCIN Inactive Vital Signs Date Name Value [...] ... - Chemistry sodium, serum 137 mmol/L 322-429 1293/11/10 potassium, serum 3.9 mmol/L 3.5-5.2 chloride, serum [...] Negative;Positive Encounters Code Encounter Date Provider Facility CPT-90116 Level 3 Est. Patient 09:26:18 CURB BUILDER Stefanie Britton APRN [facility] CPT-29906 Level 3 Est. Patient 12:50:55 CDT Bernardo Cotto MD [facility]
--- OUTSIDE RECORDS SUMMARY | 2018-05-17 02:57 | XMS REPORT ---
Author Author [facility] Medical Staff Organization [facility] Address [address] [place] [address] Phone [phone] Care Team Providers Care Medical Receptionist Medical Assistant Name Role Phone MEGHA CRUMP APRN PP [phone] Summary purpose TRANSITION OF CARE AUTO GENERATION Chief Complaint and Reason for Visit No authorized Reason for Visit (Admitting Diagnosis) is available for this visit. Problem list No authorized problems tracked for continuity of care are available for this visit. Encounters No authorized problems tracked for encounter diagnoses are available for this visit. Medications No home medications recorded for this patient visit Allergies, adverse reactions, alerts Allergen Category Ingredient Status Reaction Severity Onset No Known Drug Allergies No known drug allergies No Known Drug Allergies Confirmed or Verified Immunizations No immunizations recorded for this patient visit Relevant diagnostic tests and/or laboratory data No authorized results are available for this patient visit History of procedures No procedures recorded for this patient visit. Functional status No functional or cognitive status observations are available for this visit. Vital signs Type Value Date Respiration Rate 20breaths per minute :13 Pulse 62beats per minute :13 Oxygen Saturation 99% :13 BP Systolic 138mmHg [id number]:13 BP Diastolic 76mmHg 78-06-230294:13 Temperature 98.5F :13 Social history Type Value Smoking Status CURRENT EVERY DAY SMOKER Treatment Plan No treatment plan text is available for this visit. Hospital discharge instructions Dismissal Condition good Disposition on DC home DC Inst/Educ Give yes Med/Side Effects Rev yes
--- OUTSIDE RECORDS SUMMARY | 2018-05-17 02:57 | XMS REPORT | Clinical Summary ---
Author Author Admin, JOEE Organization [employer] Address Unknown Phone Unavailable Allergies, Adverse Reactions, [...] without sinus Cough 786.2 Active Stefanie Mauricioum PET CAREGIVER Cough Abdominal pain, generalized 789.07 Active Stefanie Yokum PET CAREGIVER Abdominal pain, generalized Medication List Medication Instructions Start Date Stop Date Generic Name NDC Status Provider Patient Instruction CARAFATE 1 GM TAB 1 QID SUCRALFATE 89062457432 Active Stefanie Yokum PET CAREGIVER Active ZITHROMAX 250 MG TAB 2 po today, then 1 po q days 2-5 AZITHROMYCIN 08005957547 No Longer Active Stefanie Yokum PET CAREGIVER Active AMOXICILLIN 500 MG CAP 1 tab by mouth 3 times daily x 10 days AMOXICILLIN 57568146040 No Longer Active Stefanie Yokum PET CAREGIVER Active LORTAB 5 5-500 MG TABS 1 tablet by mouth every 6 hours as needed for pain HYDROCODONE-ACETAMINOPHEN 18327526474 No Longer Active Stefanie Yokum PET CAREGIVER Active LORTAB 5 5-500 MG TABS 1 tablet by mouth every 6 hours as needed for pain LORTAB 5 5-500 MG TABS HYDROCODONE-ACETAMINOPHEN Inactive AMOXICILLIN 500 MG CAP 1 tab by mouth 3 times daily x 10 days AMOXICILLIN 500 MG CAP 260006 AMOXICILLIN Inactive ZITHROMAX 250 MG TAB 2 po today, then 1 po q days 2-5 ZITHROMAX 250 MG TAB 4518143 AZITHROMYCIN Inactive Vital Signs Date Name Value [...] ... - Chemistry sodium, serum 137 mmol/L 251-666 3391/11/10 potassium, serum 3.9 mmol/L 3.5-5.2 chloride, serum [...] Negative;Positive Encounters Code Encounter Date Provider Facility CPT-70190 Level 4 Est. Patient 15:21:08 MATERIALS ENGINEERING TECHNICIAN Stefanie Britton [facility] CPT-92458 Level 3 Est. Patient 09:26:18 MATERIALS ENGINEERING TECHNICIAN Stefanie Britton [facility] CPT-44558 Level 3 Est. Patient 12:50:55 CDT Bernardo Cotto MD [facility] Procedures Code Procedure Name Date Entry Date Standard Description CPT-43828 Chest 2V Frontal and Lat 15:38:01 MATERIALS ENGINEERING TECHNICIAN
--- OUTSIDE RECORDS SUMMARY | 2018-05-17 02:57 | XMS REPORT | Clinical Summary ---
Author Author Admin, JOEE Organization [employer] Address Unknown Phone Unavailable Allergies, Adverse Reactions, [...] abscess without sinus Cough 786.2 Active Stefanie Yokcarol TIER LIFT OPERATOR Cough Abdominal pain, generalized 789.07 Active Stefanie Reba TIER LIFT OPERATOR Abdominal pain, generalized Helicobacter pylori gastritis 535.40 Active Stefanie Britton TIER LIFT OPERATOR Other specified gastritis, without mention of hemorrhage FH Breast Cancer V16.3 Active Shira Gil TIER LIFT OPERATOR Family history of malignant neoplasm of breast GERD 530.81 Active Shira Gil TIER LIFT OPERATOR Esophageal reflux Change in bowels 787.99 Active Shira Gil APRN Other symptoms involving digestive system Bronchitis 490 Active Mike Stephens MD Bronchitis, not specified as acute or chronic Medication List Medication Instructions Start Date Stop Date Generic Name NDC Status Provider Patient Instruction GUAIFENESIN-CODEINE 100-10 MG/5ML SYRP 1 tsp PO q6h PRN cough GUAIFENESIN-CODEINE 04515505963 Active Mike Stephens MD Active ZITHROMAX Z-LOC 250 MG TABS 2 today, then 1 daily for 4 days 2014 AZITHROMYCIN 44024243256 No Longer Active Mike Stephens MD Active CARAFATE 1 GM TAB 1 QID SUCRALFATE 49101887509 No Longer Active Shira Gil TIER LIFT OPERATOR Active OMEPRAZOLE 20 MG CPDR 1 tablet by mouth twice daily OMEPRAZOLE 08016933635 No Longer Active Stefanie Yokum TIER LIFT OPERATOR Active CLARITHROMYCIN 500 MG TABS 1 tablet by mouth twice daily CLARITHROMYCIN 88021588821 No Longer Active Stefanie Yokum TIER LIFT OPERATOR Active AMOXICILLIN 500 MG CAPS 2 po BID x 10 days AMOXICILLIN 29512388637 No Longer Active Stefanie Yokum TIER LIFT OPERATOR Active ZITHROMAX 250 MG TAB 2 po today, then 1 po q days 2-5 AZITHROMYCIN 03508963048 No Longer Active Stefanie Yokum TIER LIFT OPERATOR Active AMOXICILLIN 500 MG CAP 1 tab by mouth 3 times daily x 10 days AMOXICILLIN 16147476449 No Longer Active Stefanie Yokum TIER LIFT OPERATOR Active LORTAB 5 5-500 MG TABS 1 tablet by mouth every 6 hours as needed for pain HYDROCODONE-ACETAMINOPHEN 35190319085 No Longer Active Stefanie Yokum TIER LIFT OPERATOR Active LORTAB 5 5-500 MG TABS 1 tablet by mouth every 6 hours as needed for pain LORTAB 5 5-500 MG TABS HYDROCODONE-ACETAMINOPHEN Inactive AMOXICILLIN 500 MG CAP 1 tab by mouth 3 times daily x 10 days AMOXICILLIN 500 MG CAP 304326 AMOXICILLIN Inactive CARAFATE 1 GM TAB 1 QID CARAFATE 1 GM TAB 844689 SUCRALFATE Inactive ZITHROMAX 250 MG TAB 2 po today, then 1 po q days 2-5 ZITHROMAX 250 MG TAB 7429915 AZITHROMYCIN Inactive AMOXICILLIN 500 MG CAPS 2 po BID x 10 days AMOXICILLIN 500 MG CAPS 743386 AMOXICILLIN Inactive CLARITHROMYCIN 500 MG TABS 1 tablet by mouth twice daily CLARITHROMYCIN 500 MG TABS 121737 CLARITHROMYCIN Inactive OMEPRAZOLE 20 MG CPDR 1 tablet by mouth twice daily OMEPRAZOLE 20 MG CPDR 532136 OMEPRAZOLE Inactive ZITHROMAX Z-LOC 250 MG TABS 2 today, then 1 daily for 4 days 2014 ZITHROMAX Z-LOC 250 MG TABS 3928799 AZITHROMYCIN Inactive Vital Signs Date Name Value Unit Range Description blood pressure, diastolic - 8462-4 91 mm[Hg] BP naik blood pressure, systolic - 8480-6 153 mm[Hg] BP sys pulse rate E&M - 8867-4 62 /min Heart rate temperature E&M 99 [degF] Body temperature weight E&M - 3141-9 157 [lb_av] Weight Measured blood pressure, diastolic - 8462-4 94 mm[Hg] [...] ... - Chemistry sodium, serum 137 mmol/L 706-961 6701/11/10 potassium, serum 3.9 mmol/L 3.5-5.2 chloride, serum [...] % 11.6-14.8 platelet count 111 10^3/MM^3 10*3/mm3 048-766 4493/11/10 lymphocytes as percent of blood leukocytes 15.0 [...] Negative;Positive Encounters Code Encounter Date Provider Facility CPT-35056 Level 3 Est. Patient 10:40:25 ECOMMERCE PROJECT MANAGER Mike Stephens MD [facility] CPT-31484 Level 4 Est. Patient 15:21:08 ECOMMERCE PROJECT MANAGER Stefanie Britton [facility] CPT-55829 Level 3 Est. Patient 09:26:18 ECOMMERCE PROJECT MANAGER Stefanie Britton [facility] CPT-59601 Level 3 Est. Patient 12:50:55 CDT Bernardo Cotto MD [facility] Procedures Code Procedure Name Date Entry Date Standard Description CPT-OV Office Visit 14:52:05 ECOMMERCE PROJECT MANAGER CPT-OV Office Visit 16:11:48 ECOMMERCE PROJECT MANAGER CPT-31575 Chest 2V Frontal and Lat 15:38:01 ECOMMERCE PROJECT MANAGER
--- OUTSIDE RECORDS SUMMARY | 2018-05-17 02:57 | XMS REPORT | Clinical Summary ---
Author Author Admin, QIE Organization [employer] Address Unknown Phone Unavailable Allergies, Adverse Reactions, [...] without sinus Cough 786.2 Active Stefanie Yokcarol GLOBAL CLIMATE CHANGE ANALYST Cough Abdominal pain, generalized 789.07 Active Stefanie Britton GLOBAL CLIMATE CHANGE ANALYST Abdominal pain, generalized Helicobacter pylori gastritis 535.40 Active Stefanie Britton GLOBAL CLIMATE CHANGE ANALYST Other specified gastritis, without mention of hemorrhage FH Breast Cancer V16.3 Active Shira Gil GLOBAL CLIMATE CHANGE ANALYST Family history of malignant neoplasm of breast GERD 530.81 Active Shira Gil GLOBAL CLIMATE CHANGE ANALYST Esophageal reflux Change in bowels 787.99 Active Shira Gil APRN Other symptoms involving digestive system Bronchitis 490 Active Mike Stephens MD Bronchitis, not specified as acute or chronic Medication List Medication Instructions Start Date Stop Date Generic Name NDC Status Provider Patient Instruction GUAIFENESIN-CODEINE 100-10 MG/5ML SYRP 1 tsp PO q6h PRN cough GUAIFENESIN-CODEINE 98407659801 Active Mike Stephens MD Active ZITHROMAX Z-LOC 250 MG TABS 2 today, then 1 daily for 4 days 2014 AZITHROMYCIN 97686255845 Active Mike Stephens MD Active CARAFATE 1 GM TAB 1 QID SUCRALFATE 28203987376 No Longer Active Shira Gil GLOBAL CLIMATE CHANGE ANALYST Active OMEPRAZOLE 20 MG CPDR 1 tablet by mouth twice daily OMEPRAZOLE 32836360204 No Longer Active Stefanierubi Martínezum GLOBAL CLIMATE CHANGE ANALYST Active CLARITHROMYCIN 500 MG TABS 1 tablet by mouth twice daily CLARITHROMYCIN 00512534814 No Longer Active Stefanie Yokum GLOBAL CLIMATE CHANGE ANALYST Active AMOXICILLIN 500 MG CAPS 2 po BID x 10 days AMOXICILLIN 94010104685 No Longer Active Stefanie Yokum GLOBAL CLIMATE CHANGE ANALYST Active ZITHROMAX 250 MG TAB 2 po today, then 1 po q days 2-5 AZITHROMYCIN 11813775054 No Longer Active Stefanie Yokum GLOBAL CLIMATE CHANGE ANALYST Active AMOXICILLIN 500 MG CAP 1 tab by mouth 3 times daily x 10 days AMOXICILLIN 97444987795 No Longer Active Stefanie Yokum GLOBAL CLIMATE CHANGE ANALYST Active LORTAB 5 5-500 MG TABS 1 tablet by mouth every 6 hours as needed for pain HYDROCODONE-ACETAMINOPHEN 25009596777 No Longer Active Stefanie Yokum GLOBAL CLIMATE CHANGE ANALYST Active LORTAB 5 5-500 MG TABS 1 tablet by mouth every 6 hours as needed for pain LORTAB 5 5-500 MG TABS HYDROCODONE-ACETAMINOPHEN Inactive AMOXICILLIN 500 MG CAP 1 tab by mouth 3 times daily x 10 days AMOXICILLIN 500 MG CAP 037362 AMOXICILLIN Inactive CARAFATE 1 GM TAB 1 QID CARAFATE 1 GM TAB 594028 SUCRALFATE Inactive ZITHROMAX 250 MG TAB 2 po today, then 1 po q days 2-5 ZITHROMAX 250 MG TAB 5112186 AZITHROMYCIN Inactive AMOXICILLIN 500 MG CAPS 2 po BID x 10 days AMOXICILLIN 500 MG CAPS 334721 AMOXICILLIN Inactive CLARITHROMYCIN 500 MG TABS 1 tablet by mouth twice daily CLARITHROMYCIN 500 MG TABS 544319 CLARITHROMYCIN Inactive OMEPRAZOLE 20 MG CPDR 1 tablet by mouth twice daily OMEPRAZOLE 20 MG CPDR 950142 OMEPRAZOLE Inactive Vital Signs Date Name Value [...] ... - Chemistry sodium, serum 137 mmol/L 885-052 2580/11/10 potassium, serum 3.9 mmol/L 3.5-5.2 chloride, serum [...] Negative;Positive Encounters Code Encounter Date Provider Facility CPT-82843 Level 3 Est. Patient 10:40:25 CABLE INSTALLER Mike Stephens MD [facility] CPT-70635 Level 4 Est. Patient 15:21:08 CABLE INSTALLER Stefanie Britton [facility] CPT-35095 Level 3 Est. Patient 09:26:18 CABLE INSTALLER Stefanie Britton [facility] CPT-42610 Level 3 Est. Patient 12:50:55 CDT Bernardo Cotto MD [facility] Procedures Code Procedure Name Date Entry Date Standard Description CPT-OV Office Visit 14:52:05 CABLE INSTALLER CPT-OV Office Visit 16:11:48 CABLE INSTALLER CPT-96469 Chest 2V Frontal and Lat 15:38:01 CABLE INSTALLER
--- OUTSIDE RECORDS SUMMARY | 2018-05-17 02:58 | XMS REPORT | Clinical Summary ---
Author Author Admin, JOEE Organization [employer] Address Unknown Phone Unavailable Allergies, Adverse Reactions, [...] without sinus Cough 786.2 Active Stefanie Mauricioum SOAP MIXER Cough Abdominal pain, generalized 789.07 Active Stefanie Yokum SOAP MIXER Abdominal pain, generalized Medication List Medication Instructions Start Date Stop Date Generic Name NDC Status Provider Patient Instruction CARAFATE 1 GM TAB 1 QID SUCRALFATE 65118965526 Active Stefanie Yokum SOAP MIXER Active ZITHROMAX 250 MG TAB 2 po today, then 1 po q days 2-5 AZITHROMYCIN 86764480921 No Longer Active Stefanie Yokum SOAP MIXER Active AMOXICILLIN 500 MG CAP 1 tab by mouth 3 times daily x 10 days AMOXICILLIN 00392779570 No Longer Active Stefanie Yokum SOAP MIXER Active LORTAB 5 5-500 MG TABS 1 tablet by mouth every 6 hours as needed for pain HYDROCODONE-ACETAMINOPHEN 35217821423 No Longer Active Stefanie Yokum SOAP MIXER Active LORTAB 5 5-500 MG TABS 1 tablet by mouth every 6 hours as needed for pain LORTAB 5 5-500 MG TABS HYDROCODONE-ACETAMINOPHEN Inactive AMOXICILLIN 500 MG CAP 1 tab by mouth 3 times daily x 10 days AMOXICILLIN 500 MG CAP 461564 AMOXICILLIN Inactive ZITHROMAX 250 MG TAB 2 po today, then 1 po q days 2-5 ZITHROMAX 250 MG TAB 4920072 AZITHROMYCIN Inactive Vital Signs Date Name Value [...] ... - Chemistry sodium, serum 137 mmol/L 561-030 4492/11/10 potassium, serum 3.9 mmol/L 3.5-5.2 chloride, serum [...] Negative;Positive Encounters Code Encounter Date Provider Facility CPT-66260 Level 4 Est. Patient 15:21:08 WATER PROOFER Stefanie Britton [facility] CPT-42142 Level 3 Est. Patient 09:26:18 WATER PROOFER Stefanie Britton [facility] CPT-22701 Level 3 Est. Patient 12:50:55 CDT Bernardo Cotto MD [facility] Procedures Code Procedure Name Date Entry Date Standard Description CPT-51274 Chest 2V Frontal and Lat 15:38:01 WATER PROOFER
--- OUTSIDE RECORDS SUMMARY | 2018-05-17 02:58 | XMS REPORT | Clinical Summary ---
Author Author Admin, JANI Organization [employer] Address Unknown Phone Unavailable Allergies, Adverse Reactions, [...] without sinus Cough 786.2 Active Stefanie Yokum SECURITY ATTENDANT Cough Abdominal pain, generalized 789.07 Active Stefanie Yokum SECURITY ATTENDANT Abdominal pain, generalized Medication List Medication Instructions Start Date Stop Date Generic Name NDC Status Provider Patient Instruction ZITHROMAX 250 MG TAB 2 po today, then 1 po q days 2-5 AZITHROMYCIN 69629721038 No Longer Active Stefanie Yokum SECURITY ATTENDANT Active AMOXICILLIN 500 MG CAP 1 tab by mouth 3 times daily x 10 days AMOXICILLIN 29894681833 No Longer Active Stefanie Yokum SECURITY ATTENDANT Active LORTAB 5 5-500 MG TABS 1 tablet by mouth every 6 hours as needed for pain HYDROCODONE-ACETAMINOPHEN 73048838958 No Longer Active Stefanie Yokum SECURITY ATTENDANT Active LORTAB 5 5-500 MG TABS 1 tablet by mouth every 6 hours as needed for pain LORTAB 5 5-500 MG TABS HYDROCODONE-ACETAMINOPHEN Inactive AMOXICILLIN 500 MG CAP 1 tab by mouth 3 times daily x 10 days AMOXICILLIN 500 MG CAP 926515 AMOXICILLIN Inactive ZITHROMAX 250 MG TAB 2 po today, then 1 po q days 2-5 ZITHROMAX 250 MG TAB 6028508 AZITHROMYCIN Inactive Vital Signs Date Name Value [...] ... - Chemistry sodium, serum 137 mmol/L 731-441 4296/11/10 potassium, serum 3.9 mmol/L 3.5-5.2 chloride, serum [...] Negative;Positive Encounters Code Encounter Date Provider Facility CPT-98826 Level 4 Est. Patient 15:21:08 RABBLER Stefanie Britton [facility] CPT-70524 Level 3 Est. Patient 09:26:18 RABBLER Stefanie Britton [facility] CPT-90133 Level 3 Est. Patient 12:50:55 CDT Bernardo Cotto MD [facility] Procedures Code Procedure Name Date Entry Date Standard Description CPT-35761 Chest 2V Frontal and Lat 15:38:01 RABBLER
--- OUTSIDE RECORDS SUMMARY | 2018-05-17 02:58 | XMS REPORT | Clinical Summary ---
Author Author Admin, JANI Organization [employer] Address Unknown Phone Unavailable Allergies, Adverse Reactions, [...] without sinus Cough 786.2 Active Stefanie Mauricioum PHARMACY DIRECTOR Cough Abdominal pain, generalized 789.07 Active Stefanie Yokum PHARMACY DIRECTOR Abdominal pain, generalized Helicobacter pylori gastritis 535.40 Active Stefanie Yokum PHARMACY DIRECTOR Other specified gastritis, without mention of hemorrhage Medication List Medication Instructions Start Date Stop Date Generic Name NDC Status Provider Patient Instruction OMEPRAZOLE 20 MG CPDR 1 tablet by mouth twice daily OMEPRAZOLE 43957959118 Active Stefanie Yokum PHARMACY DIRECTOR Active CLARITHROMYCIN 500 MG TABS 1 tablet by mouth twice daily CLARITHROMYCIN 36869363058 Active Stefanie Yokum PHARMACY DIRECTOR Active AMOXICILLIN 500 MG CAPS 2 po BID x 10 days AMOXICILLIN 16088595899 Active Stefanie Yokum PHARMACY DIRECTOR Active CARAFATE 1 GM TAB 1 QID SUCRALFATE 06559837001 Active Stefanie Yokum PHARMACY DIRECTOR Active ZITHROMAX 250 MG TAB 2 po today, then 1 po q days 2-5 AZITHROMYCIN 23978456660 No Longer Active Stefanie Yokum PHARMACY DIRECTOR Active AMOXICILLIN 500 MG CAP 1 tab by mouth 3 times daily x 10 days AMOXICILLIN 71150771097 No Longer Active Stefanie Yokum PHARMACY DIRECTOR Active LORTAB 5 5-500 MG TABS 1 tablet by mouth every 6 hours as needed for pain HYDROCODONE-ACETAMINOPHEN 95897689611 No Longer Active Stefanie Yokum PHARMACY DIRECTOR Active LORTAB 5 5-500 MG TABS 1 tablet by mouth every 6 hours as needed for pain LORTAB 5 5-500 MG TABS HYDROCODONE-ACETAMINOPHEN Inactive AMOXICILLIN 500 MG CAP 1 tab by mouth 3 times daily x 10 days AMOXICILLIN 500 MG CAP 248338 AMOXICILLIN Inactive ZITHROMAX 250 MG TAB 2 po today, then 1 po q days 2-5 ZITHROMAX 250 MG TAB 3112026 AZITHROMYCIN Inactive Vital Signs Date Name Value [...] ... - Chemistry sodium, serum 137 mmol/L 183-685 5761/11/10 potassium, serum 3.9 mmol/L 3.5-5.2 chloride, serum [...] Negative;Positive Encounters Code Encounter Date Provider Facility CPT-74014 Level 4 Est. Patient 15:21:08 COMMUNITY SERVICE OFFICER COORDINATOR Stefanie Britton [facility] CPT-99132 Level 3 Est. Patient 09:26:18 COMMUNITY SERVICE OFFICER COORDINATOR Stefanie Britton [facility] CPT-90805 Level 3 Est. Patient 12:50:55 CDT Bernardo Cotto MD [facility] Procedures Code Procedure Name Date Entry Date Standard Description CPT-76147 Chest 2V Frontal and Lat 15:38:01 COMMUNITY SERVICE OFFICER COORDINATOR
--- OUTSIDE RECORDS SUMMARY | 2018-05-17 02:58 | XMS REPORT | Clinical Summary ---
Author Author Admin, JANI Organization [email or web address] Address Unknown Phone Unavailable Allergies, Adverse Reactions, Alerts Allergy Name Reaction Description Start Date Severity Status Provider No Known Allergies Amber [place] Damir Conditions or Problems Problem Name Problem Code Onset Date Status Entry Date Provider Comment Standard Description Annotate HYPERTENSION 401.9 Active Bernardo Cotto MD Unspecified essential hypertension ABSCESS, TOOTH 522.5 Active Bernardo Cotto MD Periapical abscess without sinus Cough 786.2 Active Stefanie Yokum MANUFACTURING BAKER Cough Medication List Medication Instructions Start Date Stop Date Generic Name NDC Status Provider Patient Instruction ZITHROMAX 250 MG TAB 2 po today, then 1 po q days 2-5 AZITHROMYCIN 92682421579 Active Stefanie Yokum MANUFACTURING BAKER Active AMOXICILLIN 500 MG CAP 1 tab by mouth 3 times daily x 10 days AMOXICILLIN 48880572615 No Longer Active Stefanie Yokum MANUFACTURING BAKER Active LORTAB 5 5-500 MG TABS 1 tablet by mouth every 6 hours as needed for pain HYDROCODONE-ACETAMINOPHEN 46114117951 No Longer Active Stefanie Yokum MANUFACTURING BAKER Active LORTAB 5 5-500 MG TABS 1 tablet by mouth every 6 hours as needed for pain LORTAB 5 5-500 MG TABS HYDROCODONE-ACETAMINOPHEN Inactive AMOXICILLIN 500 MG CAP 1 tab by mouth 3 times daily x 10 days AMOXICILLIN 500 MG CAP 465490 AMOXICILLIN Inactive Diagnostic Results Date Name Value Unit Range Description Lab Report: CBC W/DIFF, Comp. Metabolic Panel, Myco Pneumo, RapidStrep R ... - Chemistry sodium, serum 137 mmol/L 014-080 7297/11/10 potassium, serum 3.9 mmol/L 3.5-5.2 chloride, serum [...] Panel, Myco Pneumo, RapidStrep R ... - Microbiology Microbial identification kit, rapid strep method Negative-Throat Culture to Follow Negative Lab Report: ALFREDO INFLUENZA A/B - Toxicology rapid flu test Negative Negative;Positive Encounters Code Encounter Date Provider Facility CPT-56474 Level 3 Est. Patient 09:26:18 ELECTRIC DEICER ASSEMBLER Stefanie Britton APRN [facility] CPT-08770 Level 3 Est. Patient 12:50:55 CDT Bernardo Cotto MD [facility]
--- OUTSIDE RECORDS SUMMARY | 2018-05-17 02:58 | XMS REPORT | Clinical Summary ---
Author Author Admin, JANI Organization [employer] Address Unknown Phone Unavailable Allergies, Adverse Reactions, [...] without sinus Cough 786.2 Active Stefanie Yokum GLAZE SPRAYER Cough Medication List Medication Instructions Start Date Stop Date Generic Name NDC Status Provider Patient Instruction ZITHROMAX 250 MG TAB 2 po today, then 1 po q days 2-5 AZITHROMYCIN 25098726498 Active Stefanie Yokum GLAZE SPRAYER Active AMOXICILLIN 500 MG CAP 1 tab by mouth 3 times daily x 10 days AMOXICILLIN 20130059856 No Longer Active Stefanie Yokum GLAZE SPRAYER Active LORTAB 5 5-500 MG TABS 1 tablet by mouth every 6 hours as needed for pain HYDROCODONE-ACETAMINOPHEN 68712417000 No Longer Active Stefanie Yokum GLAZE SPRAYER Active LORTAB 5 5-500 MG TABS 1 tablet by mouth every 6 hours as needed for pain LORTAB 5 5-500 MG TABS HYDROCODONE-ACETAMINOPHEN Inactive AMOXICILLIN 500 MG CAP 1 tab by mouth 3 times daily x 10 days AMOXICILLIN 500 MG CAP 587566 AMOXICILLIN Inactive Diagnostic Results Date Name Value Unit Range Description Lab Report: CBC W/DIFF, Comp. Metabolic Panel, Myco Pneumo, RapidStrep R ... - Chemistry sodium, serum 137 mmol/L 678-843 0295/11/10 potassium, serum 3.9 mmol/L 3.5-5.2 chloride, serum [...] Negative;Positive Encounters Code Encounter Date Provider Facility CPT-55700 Level 3 Est. Patient 09:26:18 GIZZARD PULLER Stefanie Britton APRN [facility] CPT-02490 Level 3 Est. Patient 12:50:55 CDT Bernardo Cotto MD [facility]
--- OUTSIDE RECORDS SUMMARY | 2018-05-17 02:58 | XMS REPORT | Clinical Summary ---
Author Author Admin, JOEE Organization [employer] Address Unknown Phone Unavailable Allergies, Adverse Reactions, [...] without sinus Cough 786.2 Active Stefanie Mauricioum HAT AND CAP DRYING ROOM ATTENDANT Cough Abdominal pain, generalized 789.07 Active Stefanie Yokum HAT AND CAP DRYING ROOM ATTENDANT Abdominal pain, generalized Medication List Medication Instructions Start Date Stop Date Generic Name NDC Status Provider Patient Instruction CARAFATE 1 GM TAB 1 QID SUCRALFATE 58480058965 Active Stefanie Yokum HAT AND CAP DRYING ROOM ATTENDANT Active ZITHROMAX 250 MG TAB 2 po today, then 1 po q days 2-5 AZITHROMYCIN 00764982311 No Longer Active Stefanie Yokum HAT AND CAP DRYING ROOM ATTENDANT Active AMOXICILLIN 500 MG CAP 1 tab by mouth 3 times daily x 10 days AMOXICILLIN 17858569150 No Longer Active Stefanie Yokum HAT AND CAP DRYING ROOM ATTENDANT Active LORTAB 5 5-500 MG TABS 1 tablet by mouth every 6 hours as needed for pain HYDROCODONE-ACETAMINOPHEN 64055453129 No Longer Active Stefanie Yokum HAT AND CAP DRYING ROOM ATTENDANT Active LORTAB 5 5-500 MG TABS 1 tablet by mouth every 6 hours as needed for pain LORTAB 5 5-500 MG TABS HYDROCODONE-ACETAMINOPHEN Inactive AMOXICILLIN 500 MG CAP 1 tab by mouth 3 times daily x 10 days AMOXICILLIN 500 MG CAP 820462 AMOXICILLIN Inactive ZITHROMAX 250 MG TAB 2 po today, then 1 po q days 2-5 ZITHROMAX 250 MG TAB 3964701 AZITHROMYCIN Inactive Vital Signs Date Name Value [...] ... - Chemistry sodium, serum 137 mmol/L 797-826 0503/11/10 potassium, serum 3.9 mmol/L 3.5-5.2 chloride, serum [...] Negative;Positive Encounters Code Encounter Date Provider Facility CPT-51174 Level 4 Est. Patient 15:21:08 GUM MIXER Stefanie Britton [facility] CPT-23493 Level 3 Est. Patient 09:26:18 GUM MIXER Stefanie Britton [facility] CPT-52035 Level 3 Est. Patient 12:50:55 CDT Bernardo Cotto MD [facility] Procedures Code Procedure Name Date Entry Date Standard Description CPT-78373 Chest 2V Frontal and Lat 15:38:01 GUM MIXER
--- OUTSIDE RECORDS SUMMARY | 2018-05-17 02:58 | XMS REPORT | Clinical Summary ---
Author Author Admin, AJNI Organization [employer] Address Unknown Phone Unavailable Allergies, Adverse Reactions, [...] without sinus Cough 786.2 Active Stefanie Yokum TECH ED/WOODSHOP TEACHER Cough Medication List Medication Instructions Start Date Stop Date Generic Name NDC Status Provider Patient Instruction ZITHROMAX 250 MG TAB 2 po today, then 1 po q days 2-5 AZITHROMYCIN 97487555678 Active Stefanie Yokum TECH ED/WOODSHOP TEACHER Active AMOXICILLIN 500 MG CAP 1 tab by mouth 3 times daily x 10 days AMOXICILLIN 95113134178 No Longer Active Stefanie Yokum TECH ED/WOODSHOP TEACHER Active LORTAB 5 5-500 MG TABS 1 tablet by mouth every 6 hours as needed for pain HYDROCODONE-ACETAMINOPHEN 00123640215 No Longer Active Stefanie Yokum TECH ED/WOODSHOP TEACHER Active LORTAB 5 5-500 MG TABS 1 tablet by mouth every 6 hours as needed for pain LORTAB 5 5-500 MG TABS HYDROCODONE-ACETAMINOPHEN Inactive AMOXICILLIN 500 MG CAP 1 tab by mouth 3 times daily x 10 days AMOXICILLIN 500 MG CAP 723377 AMOXICILLIN Inactive Diagnostic Results Date Name Value Unit Range Description Lab Report: CBC W/DIFF, Comp. Metabolic Panel, Myco Pneumo, RapidStrep R ... - Chemistry sodium, serum 137 mmol/L 512-492 7209/11/10 potassium, serum 3.9 mmol/L 3.5-5.2 chloride, serum [...] Negative;Positive Encounters Code Encounter Date Provider Facility CPT-65035 Level 3 Est. Patient 09:26:18 WET MIXER Stefanie Britton APRN [facility] CPT-33513 Level 3 Est. Patient 12:50:55 CDT Bernardo Cotto MD [facility]
--- OUTSIDE RECORDS SUMMARY | 2018-05-17 02:59 | XMS REPORT | Clinical Summary ---
Author Author Admin, Lisa Organization [employer] Address Unknown Phone Unavailable Allergies, Adverse Reactions, [...] CARAFATE 1 GM TAB 1 QID SUCRALFATE 01834567337 No Longer Active Shira Gil APRN Active OMEPRAZOLE 20 MG CPDR 1 tablet by mouth twice daily OMEPRAZOLE 48135254437 No Longer Active Stefanie Britton APRN Active CLARITHROMYCIN 500 MG TABS 1 tablet by mouth twice daily CLARITHROMYCIN 95666105100 No Longer Active Stefanie Britton APRN Active AMOXICILLIN 500 MG CAPS 2 po BID x 10 days AMOXICILLIN 24101695222 No Longer Active Stefanie Yokum BOILER HELPER Active ZITHROMAX 250 MG TAB 2 po today, then 1 po q days 2-5 AZITHROMYCIN 41321999194 No Longer Active Stefanie Yokum BOILER HELPER Active AMOXICILLIN 500 MG CAP 1 tab by mouth 3 times daily x 10 days AMOXICILLIN 56465956765 No Longer Active Stefanie Yokum BOILER HELPER Active LORTAB 5 5-500 MG TABS 1 tablet by mouth every 6 hours as needed for pain HYDROCODONE-ACETAMINOPHEN 95025073701 No Longer Active Stefanie Yokum BOILER HELPER Active LORTAB 5 5-500 MG TABS 1 tablet by mouth every 6 hours as needed for pain LORTAB 5 5-500 MG TABS HYDROCODONE-ACETAMINOPHEN Inactive AMOXICILLIN 500 MG CAP 1 tab by mouth 3 times daily x 10 days AMOXICILLIN 500 MG CAP 016723 AMOXICILLIN Inactive CARAFATE 1 GM TAB 1 QID CARAFATE 1 GM TAB 876619 SUCRALFATE Inactive ZITHROMAX 250 MG TAB 2 po today, then 1 po q days 2-5 ZITHROMAX 250 MG TAB 8150116 AZITHROMYCIN Inactive AMOXICILLIN 500 MG CAPS 2 po BID x 10 days AMOXICILLIN 500 MG CAPS 120307 AMOXICILLIN Inactive CLARITHROMYCIN 500 MG TABS 1 tablet by mouth twice daily CLARITHROMYCIN 500 MG TABS 772055 CLARITHROMYCIN Inactive OMEPRAZOLE 20 MG CPDR 1 tablet by mouth twice daily OMEPRAZOLE 20 MG CPDR 847314 OMEPRAZOLE Inactive Vital Signs Date Name Value [...] ... - Chemistry sodium, serum 137 mmol/L 267-356 2485/11/10 potassium, serum 3.9 mmol/L 3.5-5.2 chloride, serum [...] Negative;Positive Encounters Code Encounter Date Provider Facility CPT-21962 Level 4 Est. 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 Patient 09:26:18 WOOD HEEL FLAP INSERTER Stefanie Britton [facility] CPT-43111 Level 3 Est. Patient 12:50:55 CDT Bernardo Cotto MD [facility] Procedures Code Procedure Name Date Entry Date Standard Description CPT-OV Office Visit 16:11:48 WOOD HEEL FLAP INSERTER CPT-70941 Chest 2V Frontal and Lat 15:38:01 WOOD HEEL FLAP INSERTER
--- OUTSIDE RECORDS SUMMARY | 2018-05-17 02:59 | XMS REPORT | Clinical Summary ---
Author Author Admin, JANI Organization [employer] Address Unknown Phone Unavailable Allergies, Adverse Reactions, [...] without sinus Cough 786.2 Active Stefanie Yokum ESCORT PATIENTS Cough Abdominal pain, generalized 789.07 Active Stefanie Yokum ESCORT PATIENTS Abdominal pain, generalized Medication List Medication Instructions Start Date Stop Date Generic Name NDC Status Provider Patient Instruction ZITHROMAX 250 MG TAB 2 po today, then 1 po q days 2-5 AZITHROMYCIN 77163150204 No Longer Active Stefanie Yokum ESCORT PATIENTS Active AMOXICILLIN 500 MG CAP 1 tab by mouth 3 times daily x 10 days AMOXICILLIN 46571082492 No Longer Active Stefanie Yokum ESCORT PATIENTS Active LORTAB 5 5-500 MG TABS 1 tablet by mouth every 6 hours as needed for pain HYDROCODONE-ACETAMINOPHEN 30843494488 No Longer Active Stefanie Yokum ESCORT PATIENTS Active LORTAB 5 5-500 MG TABS 1 tablet by mouth every 6 hours as needed for pain LORTAB 5 5-500 MG TABS HYDROCODONE-ACETAMINOPHEN Inactive AMOXICILLIN 500 MG CAP 1 tab by mouth 3 times daily x 10 days AMOXICILLIN 500 MG CAP 380199 AMOXICILLIN Inactive ZITHROMAX 250 MG TAB 2 po today, then 1 po q days 2-5 ZITHROMAX 250 MG TAB 2671611 AZITHROMYCIN Inactive Vital Signs Date Name Value [...] ... - Chemistry sodium, serum 137 mmol/L 602-059 5300/11/10 potassium, serum 3.9 mmol/L 3.5-5.2 chloride, serum [...] Negative;Positive Encounters Code Encounter Date Provider Facility CPT-69549 Level 4 Est. Patient 15:21:08 SYSTEMS TEST TECHNICIAN Stefanie Britton [facility] CPT-98786 Level 3 Est. Patient 09:26:18 SYSTEMS TEST TECHNICIAN Stefanie Britton [facility] CPT-89037 Level 3 Est. Patient 12:50:55 CDT Bernardo Cotto MD [facility] Procedures Code Procedure Name Date Entry Date Standard Description CPT-09835 Chest 2V Frontal and Lat 15:38:01 SYSTEMS TEST TECHNICIAN
--- OUTSIDE RECORDS SUMMARY | 2018-05-17 02:59 | XMS REPORT | Clinical Summary ---
Author Author Admin, JANI Organization [employer] Address Unknown Phone Unavailable Allergies, Adverse Reactions, [...] without sinus Cough 786.2 Active Stefanie Yokum HOUSEKEEPING DEPARTMENT WORKER Cough Medication List Medication Instructions Start Date Stop Date Generic Name NDC Status Provider Patient Instruction ZITHROMAX 250 MG TAB 2 po today, then 1 po q days 2-5 AZITHROMYCIN 10503545803 No Longer Active Stefanie Yokum HOUSEKEEPING DEPARTMENT WORKER Active AMOXICILLIN 500 MG CAP 1 tab by mouth 3 times daily x 10 days AMOXICILLIN 08093494677 No Longer Active Stefanie Yokum HOUSEKEEPING DEPARTMENT WORKER Active LORTAB 5 5-500 MG TABS 1 tablet by mouth every 6 hours as needed for pain HYDROCODONE-ACETAMINOPHEN 66010090131 No Longer Active Stefanie Yokum HOUSEKEEPING DEPARTMENT WORKER Active LORTAB 5 5-500 MG TABS 1 tablet by mouth every 6 hours as needed for pain LORTAB 5 5-500 MG TABS HYDROCODONE-ACETAMINOPHEN Inactive AMOXICILLIN 500 MG CAP 1 tab by mouth 3 times daily x 10 days AMOXICILLIN 500 MG CAP 705116 AMOXICILLIN Inactive ZITHROMAX 250 MG TAB 2 po today, then 1 po q days 2-5 ZITHROMAX 250 MG TAB 6772290 AZITHROMYCIN Inactive Vital Signs Date Name Value Unit Range Description blood pressure, diastolic 92 mm[Hg] BP naik blood pressure, systolic 138 mm[Hg] BP sys pulse rate E&M 74 /min Heart rate temperature E&M 99.1 [degF] Body temperature weight E&M 161 [lb_av] Weight Measured Diagnostic Results Date Name Value Unit Range Description Lab Report: CBC W/DIFF, Comp. Metabolic Panel, Myco Pneumo, RapidStrep R ... - Chemistry sodium, serum 137 mmol/L 392-008 2292/11/10 potassium, serum 3.9 mmol/L 3.5-5.2 chloride, serum [...] Negative;Positive Encounters Code Encounter Date Provider Facility CPT-39751 Level 3 Est. Patient 09:26:18 LAW RESEARCHER Stefanie Britton APRN [facility] CPT-76633 Level 3 Est. Patient 12:50:55 CDT Bernardo Cotto MD [facility]
--- OUTSIDE RECORDS SUMMARY | 2018-05-17 02:59 | XMS REPORT | Clinical Summary ---
Author Author Admin, Lisa Organization [employer] Address Unknown Phone Unavailable Allergies, Adverse Reactions, [...] CARAFATE 1 GM TAB 1 QID SUCRALFATE 21230470107 No Longer Active Shira Gil APRN Active OMEPRAZOLE 20 MG CPDR 1 tablet by mouth twice daily OMEPRAZOLE 65460659004 Active Stefanie Britton APRN Active CLARITHROMYCIN 500 MG TABS 1 tablet by mouth twice daily CLARITHROMYCIN 63974200717 Active Stefanie Britton APRN Active AMOXICILLIN 500 MG CAPS 2 po BID x 10 days AMOXICILLIN 98183750263 Active Stefanie Yokum MANAGER METROLOGY Active ZITHROMAX 250 MG TAB 2 po today, then 1 po q days 2-5 AZITHROMYCIN 17440272473 No Longer Active Stefanie Yokum MANAGER METROLOGY Active AMOXICILLIN 500 MG CAP 1 tab by mouth 3 times daily x 10 days AMOXICILLIN 31608733966 No Longer Active Stefanie Yokum MANAGER METROLOGY Active LORTAB 5 5-500 MG TABS 1 tablet by mouth every 6 hours as needed for pain HYDROCODONE-ACETAMINOPHEN 55113062217 No Longer Active Stefanie Yokum MANAGER METROLOGY Active LORTAB 5 5-500 MG TABS 1 tablet by mouth every 6 hours as needed for pain LORTAB 5 5-500 MG TABS HYDROCODONE-ACETAMINOPHEN Inactive AMOXICILLIN 500 MG CAP 1 tab by mouth 3 times daily x 10 days AMOXICILLIN 500 MG CAP 255306 AMOXICILLIN Inactive CARAFATE 1 GM TAB 1 QID CARAFATE 1 GM TAB 535593 SUCRALFATE Inactive ZITHROMAX 250 MG TAB 2 po today, then 1 po q days 2-5 ZITHROMAX 250 MG TAB 2009569 AZITHROMYCIN Inactive Vital Signs Date Name Value [...] ... - Chemistry sodium, serum 137 mmol/L 715-873 7577/11/10 potassium, serum 3.9 mmol/L 3.5-5.2 chloride, serum [...] % 11.6-14.8 platelet count 111 10^3/MM^3 10*3/mm3 843-773 5813/11/10 erythrocyte (RBC) count 4.61 10^6/MM^3 10*6/mm3 4.69-6.13 [...] Negative;Positive Encounters Code Encounter Date Provider Facility CPT-42723 Level 4 Est. Patient 15:21:08 ANESTHESIOLOGY CRNA [facility] CPT-99635 Level 3 Est. Patient 09:26:18 ANESTHESIOLOGY CRNA [facility] CPT-51226 Level 3 Est. Patient 12:50:55 CDT Bernardo Cotto MD [facility] Procedures Code Procedure Name Date Entry Date Standard Description CPT-OV Office Visit 16:11:48 ANESTHESIOLOGY CRNA CPT-60909 Chest 2V Frontal and Lat 15:38:01 ANESTHESIOLOGY CRNA
--- OUTSIDE RECORDS SUMMARY | 2018-05-17 02:59 | XMS REPORT ---
Author Author [facility] Medical Staff Organization [facility] Address [address] [place] [address] Phone [phone] Care Team Providers Care Field Marketing Lead Name Role Phone LITA NELSON, ROBERT PP [phone] Summary purpose TRANSITION OF CARE AUTO GENERATION Chief Complaint and Reason for Visit Admit Diagnosis 1 GASTROSCOPY Admit Diagnosis 2 COLONOSCOPY Problem list No authorized problems tracked for continuity of care are available for this visit. Encounters The following conditions tracked for encounter diagnoses were recorded for this visit: Finding or Diagnosis Status Certainty Chronicity Onset *COLONOSCOPY Active *EGD Active Medications Home Medications Medication Directions Started Status Source clarithromycin 500 mg tablet 1 capsule oral 2 Times Daily for infection for 10 days Current Medication bottle label amoxicillin 500 mg capsule 2 tablet oral 2 Times Daily for stomach for 10 days Current Medication bottle label Allergies, adverse reactions, alerts Allergen Category Ingredient Status Reaction Severity Onset No Known Drug Allergies No known drug allergies No Known Drug Allergies Confirmed or Verified Immunizations No immunizations recorded for this patient visit Relevant diagnostic tests and/or laboratory data No authorized results are available for this patient visit History of procedures No procedures recorded for this patient visit. Functional status Functional Status Finding Observation Time Hearing Prob Loc none 66-00-513962:08 Vision Problems yes 83-25-399737:08 Vision Correct Dev glasses 28-71-663328:08 Ambulation Asst Dev none 06-57-205048:08 Range of Motion full 31-35-497309:05 Muscle Strength RUE 5 ROM full resist 53-52-650832:05 Muscle Strength RLE 5 ROM full resist 27-95-884261:05 Muscle Strength LUE 5 ROM full resist 26-85-291669:05 Muscle Strength LLE 5 ROM full resist 48-81-002810:05 Transfers assist x 1 89-10-441518:05 Ambulation in room 75-69-457688:05 Balance unsteady 80-58-101374:05 Bathing Assistance none 90-35-127560:08 Eating Assistance none 62-00-610636:08 Dressing Assistance none 33-39-457913:08 Toileting Assistance none 25-73-880829:08 Transfer Assistance none 01-61-220852:08 Decline Slf Care/Mob no :08 Phys Cond Stable yes :08 Cognitive Status Finding Observation Time Learning Ability comprehends well :30 Neurological no :30 Psychological no :30 Physical no :30 Hearing no :30 Sample Sewer Needed no :30 Sign Language no :30 Emotional no :30 Vision yes :30 Laguage no :30 Financial no :30 Vital signs Type Value Date Respiration Rate 18breaths per minute :15 Pulse 60beats per minute :15 Oxygen Saturation 99% 63-65-427077:15 BP Systolic 112mmHg 41-28-721494:15 BP Diastolic 76mmHg 21-15-463881:15 Temperature 96.6F 65-64-737785:05 Height 65inches :44 Weight 156LB 29-39-902465:44 Social history Type Value Smoking Status CURRENT EVERY DAY SMOKER Treatment Plan No treatment plan text is available for this visit. Hospital discharge instructions Valuables yes Valuable Type jewelry (describe) Comment: 1 gold colored necklace with cross pendant
--- OUTSIDE RECORDS SUMMARY | 2018-05-17 02:59 | XMS REPORT | Clinical Summary ---
Author Author Admin, Lisa Organization [employer] Address Unknown Phone Unavailable Allergies, Adverse Reactions, [...] CARAFATE 1 GM TAB 1 QID SUCRALFATE 56985135357 No Longer Active Shira Gil APRN Active OMEPRAZOLE 20 MG CPDR 1 tablet by mouth twice daily OMEPRAZOLE 78962074543 No Longer Active Stefanie Britton APRN Active CLARITHROMYCIN 500 MG TABS 1 tablet by mouth twice daily CLARITHROMYCIN 05077227864 No Longer Active Stefanie Britton APRN Active AMOXICILLIN 500 MG CAPS 2 po BID x 10 days AMOXICILLIN 14702985724 No Longer Active Stefanie Yokum HOTEL MAINTENANCE TECHNICIAN Active ZITHROMAX 250 MG TAB 2 po today, then 1 po q days 2-5 AZITHROMYCIN 62291262264 No Longer Active Stefanie Yokum HOTEL MAINTENANCE TECHNICIAN Active AMOXICILLIN 500 MG CAP 1 tab by mouth 3 times daily x 10 days AMOXICILLIN 46401183401 No Longer Active Stefanie Yokum HOTEL MAINTENANCE TECHNICIAN Active LORTAB 5 5-500 MG TABS 1 tablet by mouth every 6 hours as needed for pain HYDROCODONE-ACETAMINOPHEN 62938518140 No Longer Active Stefanie Yokum HOTEL MAINTENANCE TECHNICIAN Active LORTAB 5 5-500 MG TABS 1 tablet by mouth every 6 hours as needed for pain LORTAB 5 5-500 MG TABS HYDROCODONE-ACETAMINOPHEN Inactive AMOXICILLIN 500 MG CAP 1 tab by mouth 3 times daily x 10 days AMOXICILLIN 500 MG CAP 111048 AMOXICILLIN Inactive CARAFATE 1 GM TAB 1 QID CARAFATE 1 GM TAB 756642 SUCRALFATE Inactive ZITHROMAX 250 MG TAB 2 po today, then 1 po q days 2-5 ZITHROMAX 250 MG TAB 8934324 AZITHROMYCIN Inactive AMOXICILLIN 500 MG CAPS 2 po BID x 10 days AMOXICILLIN 500 MG CAPS 140136 AMOXICILLIN Inactive CLARITHROMYCIN 500 MG TABS 1 tablet by mouth twice daily CLARITHROMYCIN 500 MG TABS 119252 CLARITHROMYCIN Inactive OMEPRAZOLE 20 MG CPDR 1 tablet by mouth twice daily OMEPRAZOLE 20 MG CPDR 339471 OMEPRAZOLE Inactive Vital Signs Date Name Value [...] ... - Chemistry sodium, serum 137 mmol/L 652-586 6524/11/10 potassium, serum 3.9 mmol/L 3.5-5.2 chloride, serum [...] Negative;Positive Encounters Code Encounter Date Provider Facility CPT-70134 Level 4 Est. Patient 15:21:08 LINE SERVICE TECHNICIAN Stefanie Britton [facility] CPT-26051 Level 3 Est. Patient 09:26:18 LINE SERVICE TECHNICIAN Stefanie Britton [facility] CPT-17176 Level 3 Est. Patient 12:50:55 CDT Bernardo Cotto MD [facility] Procedures Code Procedure Name Date Entry Date Standard Description CPT-OV Office Visit 16:11:48 LINE SERVICE TECHNICIAN CPT-16573 Chest 2V Frontal and Lat 15:38:01 LINE SERVICE TECHNICIAN
--- OUTSIDE RECORDS SUMMARY | 2018-05-17 03:00 | XMS REPORT | Clinical Summary ---
Author Author Admin, JANI Organization [employer] Address Unknown Phone Unavailable Allergies, Adverse Reactions, [...] without sinus Cough 786.2 Active Stefanie Mauricioum ASSISTANT HEAD CASHIER Cough Abdominal pain, generalized 789.07 Active Stefanie Yokum ASSISTANT HEAD CASHIER Abdominal pain, generalized Helicobacter pylori gastritis 535.40 Active Stefanie Yokum ASSISTANT HEAD CASHIER Other specified gastritis, without mention of hemorrhage Medication List Medication Instructions Start Date Stop Date Generic Name NDC Status Provider Patient Instruction OMEPRAZOLE 20 MG CPDR 1 tablet by mouth twice daily OMEPRAZOLE 99075770485 Active Stefanie Yokum ASSISTANT HEAD CASHIER Active CLARITHROMYCIN 500 MG TABS 1 tablet by mouth twice daily CLARITHROMYCIN 67155911214 Active Stefanie Yokum ASSISTANT HEAD CASHIER Active AMOXICILLIN 500 MG CAPS 2 po BID x 10 days AMOXICILLIN 88961365735 Active Stefanie Yokum ASSISTANT HEAD CASHIER Active CARAFATE 1 GM TAB 1 QID SUCRALFATE 87092758463 Active Stefanie Yokum ASSISTANT HEAD CASHIER Active ZITHROMAX 250 MG TAB 2 po today, then 1 po q days 2-5 AZITHROMYCIN 83921082169 No Longer Active Stefanie Yokum ASSISTANT HEAD CASHIER Active AMOXICILLIN 500 MG CAP 1 tab by mouth 3 times daily x 10 days AMOXICILLIN 80602237175 No Longer Active Stefanie Yokum ASSISTANT HEAD CASHIER Active LORTAB 5 5-500 MG TABS 1 tablet by mouth every 6 hours as needed for pain HYDROCODONE-ACETAMINOPHEN 56896745412 No Longer Active Stefanie Yokum ASSISTANT HEAD CASHIER Active LORTAB 5 5-500 MG TABS 1 tablet by mouth every 6 hours as needed for pain LORTAB 5 5-500 MG TABS HYDROCODONE-ACETAMINOPHEN Inactive AMOXICILLIN 500 MG CAP 1 tab by mouth 3 times daily x 10 days AMOXICILLIN 500 MG CAP 853211 AMOXICILLIN Inactive ZITHROMAX 250 MG TAB 2 po today, then 1 po q days 2-5 ZITHROMAX 250 MG TAB 6760896 AZITHROMYCIN Inactive Vital Signs Date Name Value [...] ... - Chemistry sodium, serum 137 mmol/L 825-568 5612/11/10 potassium, serum 3.9 mmol/L 3.5-5.2 chloride, serum [...] Negative;Positive Encounters Code Encounter Date Provider Facility CPT-10820 Level 4 Est. Patient 15:21:08 ARABIC PROFESSOR Stefanie Britton [facility] CPT-42749 Level 3 Est. Patient 09:26:18 ARABIC PROFESSOR Stefanie Britton [facility] CPT-97194 Level 3 Est. Patient 12:50:55 CDT Bernardo Cotto MD [facility] Procedures Code Procedure Name Date Entry Date Standard Description CPT-57399 Chest 2V Frontal and Lat 15:38:01 ARABIC PROFESSOR
--- OUTSIDE RECORDS SUMMARY | 2018-05-17 03:00 | XMS REPORT | Clinical Summary ---
Author Author Admin, JANI Organization [email or web address] Address Unknown Phone Unavailable Allergies, Adverse Reactions, [...] without sinus Cough 786.2 Active Stefanie Yokum PROCESSING SPEC Cough Abdominal pain, generalized 789.07 Active Stfeanie Yokum PROCESSING SPEC Abdominal pain, generalized Medication List Medication Instructions Start Date Stop Date Generic Name NDC Status Provider Patient Instruction ZITHROMAX 250 MG TAB 2 po today, then 1 po q days 2-5 AZITHROMYCIN 94364918343 No Longer Active Stefanie Yokum PROCESSING SPEC Active AMOXICILLIN 500 MG CAP 1 tab by mouth 3 times daily x 10 days AMOXICILLIN 28591344700 No Longer Active Stefanie Yokum PROCESSING SPEC Active LORTAB 5 5-500 MG TABS 1 tablet by mouth every 6 hours as needed for pain HYDROCODONE-ACETAMINOPHEN 90588639539 No Longer Active Stefanie Yokum PROCESSING SPEC Active LORTAB 5 5-500 MG TABS 1 tablet by mouth every 6 hours as needed for pain LORTAB 5 5-500 MG TABS HYDROCODONE-ACETAMINOPHEN Inactive AMOXICILLIN 500 MG CAP 1 tab by mouth 3 times daily x 10 days AMOXICILLIN 500 MG CAP 525131 AMOXICILLIN Inactive ZITHROMAX 250 MG TAB 2 po today, then 1 po q days 2-5 ZITHROMAX 250 MG TAB 5499298 AZITHROMYCIN Inactive Vital Signs Date Name Value [...] ... - Chemistry sodium, serum 137 mmol/L 994-273 8758/11/10 potassium, serum 3.9 mmol/L 3.5-5.2 chloride, serum [...] Negative;Positive Encounters Code Encounter Date Provider Facility CPT-40043 Level 4 Est. Patient 15:21:08 DIRECTOR LABOR STANDARDS Stefanie Britton [facility] CPT-40974 Level 3 Est. Patient 09:26:18 DIRECTOR LABOR STANDARDS Stefanie Britton [facility] CPT-76800 Level 3 Est. Patient 12:50:55 CDT Bernardo Cotto MD [facility] Procedures Code Procedure Name Date Entry Date Standard Description CPT-55803 Chest 2V Frontal and Lat 15:38:01 DIRECTOR LABOR STANDARDS
--- OUTSIDE RECORDS SUMMARY | 2018-05-17 03:00 | XMS REPORT | Clinical Summary ---
Author Author Admin, JANI Organization [employer] Address Unknown Phone Unavailable Allergies, Adverse Reactions, [...] without sinus Cough 786.2 Active Stefanie Mauricioum WORKERS COMPENSATION ATTORNEY Cough Abdominal pain, generalized 789.07 Active Stefanie Yokum WORKERS COMPENSATION ATTORNEY Abdominal pain, generalized Helicobacter pylori gastritis 535.40 Active Stefanie Yokum WORKERS COMPENSATION ATTORNEY Other specified gastritis, without mention of hemorrhage Medication List Medication Instructions Start Date Stop Date Generic Name NDC Status Provider Patient Instruction OMEPRAZOLE 20 MG CPDR 1 tablet by mouth twice daily OMEPRAZOLE 41282830128 Active Stefanie Yokum WORKERS COMPENSATION ATTORNEY Active CLARITHROMYCIN 500 MG TABS 1 tablet by mouth twice daily CLARITHROMYCIN 03798667761 Active Stefanie Yokum WORKERS COMPENSATION ATTORNEY Active AMOXICILLIN 500 MG CAPS 2 po BID x 10 days AMOXICILLIN 45755854707 Active Stefanie Yokum WORKERS COMPENSATION ATTORNEY Active CARAFATE 1 GM TAB 1 QID SUCRALFATE 87715120299 Active Stefanie Yokum WORKERS COMPENSATION ATTORNEY Active ZITHROMAX 250 MG TAB 2 po today, then 1 po q days 2-5 AZITHROMYCIN 86145775556 No Longer Active Stefanie Yokum WORKERS COMPENSATION ATTORNEY Active AMOXICILLIN 500 MG CAP 1 tab by mouth 3 times daily x 10 days AMOXICILLIN 88663343970 No Longer Active Stefanie Yokum WORKERS COMPENSATION ATTORNEY Active LORTAB 5 5-500 MG TABS 1 tablet by mouth every 6 hours as needed for pain HYDROCODONE-ACETAMINOPHEN 16984256648 No Longer Active Stefanie Yokum WORKERS COMPENSATION ATTORNEY Active LORTAB 5 5-500 MG TABS 1 tablet by mouth every 6 hours as needed for pain LORTAB 5 5-500 MG TABS HYDROCODONE-ACETAMINOPHEN Inactive AMOXICILLIN 500 MG CAP 1 tab by mouth 3 times daily x 10 days AMOXICILLIN 500 MG CAP 217131 AMOXICILLIN Inactive ZITHROMAX 250 MG TAB 2 po today, then 1 po q days 2-5 ZITHROMAX 250 MG TAB 4521249 AZITHROMYCIN Inactive Vital Signs Date Name Value [...] ... - Chemistry sodium, serum 137 mmol/L 013-319 5430/11/10 potassium, serum 3.9 mmol/L 3.5-5.2 chloride, [...] Negative;Positive Encounters Code Encounter Date Provider Facility CPT-54384 Level 4 Est. Patient 15:21:08 [employer] SYSTEMS ADMINISTRATOR Stefanie Britton [facility] CPT-57345 Level 3 Est. Patient 09:26:18 [employer]RI[employer] SYSTEMS ADMINISTRATOR Stefanie Britton [facility] CPT-52775 Level 3 Est. Patient 12:50:55 CDT Bernardo Cotto MD [facility] Procedures Code Procedure Name Date Entry Date Standard Description CPT-94753 Chest 2V Frontal and Lat 15:38:01 [employer] SYSTEMS ADMINISTRATOR
--- OUTSIDE RECORDS SUMMARY | 2018-05-17 03:00 | XMS REPORT ---
Author Author [facility] Medical Staff Organization [facility] Address [address] [place] [address] Phone [phone] Care Team Providers Care Pig Breeder Name Role Phone LITA NELSON, ROBERT PP [phone] Summary purpose TRANSITION OF CARE AUTO GENERATION [...] Finding Observation Time Hearing Prob Loc none 25-81-314363:08 Vision Problems yes 82-74-936027:08 Vision Correct Dev glasses 13-66-984647:08 Ambulation Asst Dev none 89-44-930588:08 Range of Motion full 76-09-788432:05 Muscle Strength RUE 5 ROM full resist 20-93-621847:05 Muscle Strength RLE 5 ROM full resist 43-86-871592:05 Muscle Strength LUE 5 ROM full resist 90-27-114831:05 Muscle Strength LLE 5 ROM full resist 93-18-181548:05 Transfers assist x 1 11-04-376864:05 Ambulation in room 28-07-583348:05 Balance unsteady 42-15-930480:05 Bathing Assistance none 44-05-639843:08 Eating Assistance none 44-44-494146:08 Dressing Assistance none 57-86-818376:08 Toileting Assistance none 75-75-173100:08 Transfer Assistance none 32-86-253348:08 Decline Slf Care/Mob no :08 Phys Cond Stable yes :08 Cognitive Status Finding Observation Time Learning Ability comprehends well :30 Neurological no :30 Psychological no :30 Physical no :30 Hearing no :30 Sinker Winder Needed no :30 Sign Language no :30 Emotional no :30 Vision yes :30 Laguage no :30 Financial no :30 Vital signs Type Value Date Respiration Rate 18breaths per minute :15 Pulse 60beats per minute :15 Oxygen Saturation 99% 84-85-940976:15 BP Systolic 112mmHg 93-19-865469:15 BP Diastolic 76mmHg 50-31-755548:15 Temperature 96.6F 84-46-557637:05 Height 65inches :44 Weight 156LB 03-99-086259:44 Social history Type Value Smoking Status CURRENT EVERY DAY SMOKER Treatment Plan No treatment plan text is available for this visit. Hospital discharge instructions Valuables yes Valuable Type jewelry (describe) Comment: 1 gold colored necklace with cross pendant
--- OUTSIDE RECORDS SUMMARY | 2018-05-17 03:00 | XMS REPORT | Clinical Summary ---
Author Author Admin, Lisa Organization [employer] Address Unknown Phone Unavailable Allergies, Adverse [...] CARAFATE 1 GM TAB 1 QID SUCRALFATE 00770386228 No Longer Active Shira Gil APRN Active OMEPRAZOLE 20 MG CPDR 1 tablet by mouth twice daily OMEPRAZOLE 46809551251 No Longer Active Stefanie Britton APRN Active CLARITHROMYCIN 500 MG TABS 1 tablet by mouth twice daily CLARITHROMYCIN 14827127128 No Longer Active Stefanie Britton APRN Active AMOXICILLIN 500 MG CAPS 2 po BID x 10 days AMOXICILLIN 65144096214 No Longer Active Stefanie Yokum [employer] [place] [employer] Active ZITHROMAX 250 MG TAB 2 po today, then 1 po q days 2-5 AZITHROMYCIN 67031354493 No Longer Active Stefanie Yokum [employer] [place] [place] Active AMOXICILLIN 500 MG CAP 1 tab by mouth 3 times daily x 10 days AMOXICILLIN 74690106580 No Longer Active Stefanie Yokum [place] Active LORTAB 5 5-500 MG TABS 1 tablet by mouth every 6 hours as needed for pain HYDROCODONE-ACETAMINOPHEN 21593582435 No Longer Active Stefanie Yokum [place] Active LORTAB 5 5-500 MG TABS 1 tablet by mouth every 6 hours as needed for pain LORTAB 5 5-500 MG TABS HYDROCODONE-ACETAMINOPHEN Inactive AMOXICILLIN 500 MG CAP 1 tab by mouth 3 times daily x 10 days AMOXICILLIN 500 MG CAP 923553 AMOXICILLIN Inactive CARAFATE 1 GM TAB 1 QID CARAFATE 1 GM TAB 592359 SUCRALFATE Inactive ZITHROMAX 250 MG TAB 2 po today, then 1 po q days 2-5 ZITHROMAX 250 MG TAB 3721118 AZITHROMYCIN Inactive AMOXICILLIN 500 MG CAPS 2 po BID x 10 days AMOXICILLIN 500 MG CAPS 114055 AMOXICILLIN Inactive CLARITHROMYCIN 500 MG TABS 1 tablet by mouth twice daily CLARITHROMYCIN 500 MG TABS 868780 CLARITHROMYCIN Inactive OMEPRAZOLE 20 MG CPDR 1 tablet by mouth twice daily OMEPRAZOLE 20 MG CPDR 519054 OMEPRAZOLE Inactive Vital Signs Date Name Value [...] ... - Chemistry sodium, serum 137 mmol/L 712-748 0207/11/10 potassium, serum 3.9 mmol/L 3.5-5.2 chloride, serum [...] Negative;Positive Encounters Code Encounter Date Provider Facility CPT-89673 Level 4 Est. 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 Patient 12:50:55 CDT Bernardo Cotto MD [facility] Procedures Code Procedure Name Date Entry Date Standard Description CPT-OV Office Visit 16:11:48 ASSISTANT OFFSET PRESS OPERATOR CPT-51669 Chest 2V Frontal and Lat 15:38:01 ASSISTANT OFFSET PRESS OPERATOR
--- OUTSIDE RECORDS SUMMARY | 2018-05-17 03:00 | XMS REPORT | Clinical Summary ---
Author Author Admin, Lisa Organization [facility] Address Unknown Phone Unavailable Allergies, Adverse Reactions, [...] CARAFATE 1 GM TAB 1 QID SUCRALFATE 22410616536 No Longer Active Shira Gil APRN Active OMEPRAZOLE 20 MG CPDR 1 tablet by mouth twice daily OMEPRAZOLE 50833769058 No Longer Active Stefanie Britton APRN Active CLARITHROMYCIN 500 MG TABS 1 tablet by mouth twice daily CLARITHROMYCIN 75725644883 No Longer Active Stefanie Britton APRN Active AMOXICILLIN 500 MG CAPS 2 po BID x 10 days AMOXICILLIN 86896140150 No Longer Active Stefanie Yokum DIGITAL PROGRAM MANAGER Active ZITHROMAX 250 MG TAB 2 po today, then 1 po q days 2-5 AZITHROMYCIN 97593226676 No Longer Active Stefanie Yokum DIGITAL PROGRAM MANAGER Active AMOXICILLIN 500 MG CAP 1 tab by mouth 3 times daily x 10 days AMOXICILLIN 45442108897 No Longer Active Stefanie Yokum DIGITAL PROGRAM MANAGER Active LORTAB 5 5-500 MG TABS 1 tablet by mouth every 6 hours as needed for pain HYDROCODONE-ACETAMINOPHEN 79768939695 No Longer Active Stefanie Yokum DIGITAL PROGRAM MANAGER Active LORTAB 5 5-500 MG TABS 1 tablet by mouth every 6 hours as needed for pain LORTAB 5 5-500 MG TABS HYDROCODONE-ACETAMINOPHEN Inactive AMOXICILLIN 500 MG CAP 1 tab by mouth 3 times daily x 10 days AMOXICILLIN 500 MG CAP 930456 AMOXICILLIN Inactive CARAFATE 1 GM TAB 1 QID CARAFATE 1 GM TAB 384603 SUCRALFATE Inactive ZITHROMAX 250 MG TAB 2 po today, then 1 po q days 2-5 ZITHROMAX 250 MG TAB 5529115 AZITHROMYCIN Inactive AMOXICILLIN 500 MG CAPS 2 po BID x 10 days AMOXICILLIN 500 MG CAPS 701108 AMOXICILLIN Inactive CLARITHROMYCIN 500 MG TABS 1 tablet by mouth twice daily CLARITHROMYCIN 500 MG TABS 322743 CLARITHROMYCIN Inactive OMEPRAZOLE 20 MG CPDR 1 tablet by mouth twice daily OMEPRAZOLE 20 MG CPDR 849130 OMEPRAZOLE Inactive Vital Signs Date Name Value [...] ... - Chemistry sodium, serum 137 mmol/L 774-684 1126/11/10 potassium, serum 3.9 mmol/L 3.5-5.2 chloride, serum [...] Negative;Positive Encounters Code Encounter Date Provider Facility CPT-97309 Level 4 Est. 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 Patient 09:26:18 ADVISORY SOFTWARE ENGINEER Stefanie Britton [facility] CPT-54865 Level 3 Est. Patient 12:50:55 CDT Bernardo Cotto MD [facility] Procedures Code Procedure Name Date Entry Date Standard Description CPT-OV Office Visit 16:11:48 ADVISORY SOFTWARE ENGINEER CPT-48479 Chest 2V Frontal and Lat 15:38:01 ADVISORY SOFTWARE ENGINEER
--- OUTSIDE RECORDS SUMMARY | 2018-05-17 03:01 | XMS REPORT | Clinical Summary ---
Author Author Admin, JANI Organization [facility] Address Unknown Phone Unavailable Allergies, Adverse Reactions, [...] without sinus Cough 786.2 Active Stefanie Yokum IT SOLUTIONS ARCHITECT Cough Medication List Medication Instructions Start Date Stop Date Generic Name NDC Status Provider Patient Instruction ZITHROMAX 250 MG TAB 2 po today, then 1 po q days 2-5 AZITHROMYCIN 93491262776 Active Stefanie Yokum IT SOLUTIONS ARCHITECT Active AMOXICILLIN 500 MG CAP 1 tab by mouth 3 times daily x 10 days AMOXICILLIN 83088218329 No Longer Active Stefanie Yokum IT SOLUTIONS ARCHITECT Active LORTAB 5 5-500 MG TABS 1 tablet by mouth every 6 hours as needed for pain HYDROCODONE-ACETAMINOPHEN 48472823363 No Longer Active Stefanie Yokum IT SOLUTIONS ARCHITECT Active LORTAB 5 5-500 MG TABS 1 tablet by mouth every 6 hours as needed for pain LORTAB 5 5-500 MG TABS HYDROCODONE-ACETAMINOPHEN Inactive AMOXICILLIN 500 MG CAP 1 tab by mouth 3 times daily x 10 days AMOXICILLIN 500 MG CAP 401949 AMOXICILLIN Inactive Diagnostic Results Date Name Value Unit Range Description Lab Report: CBC W/DIFF, Comp. Metabolic Panel, Myco Pneumo, RapidStrep R ... - Chemistry sodium, serum 137 mmol/L 734-926 3820/11/10 potassium, serum 3.9 mmol/L 3.5-5.2 chloride, serum [...] Negative;Positive Encounters Code Encounter Date Provider Facility CPT-92516 Level 3 Est. 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 Patient 12:50:55 CDT Bernardo Cotto MD [facility]
--- OUTSIDE RECORDS SUMMARY | 2018-05-17 03:01 | XMS REPORT | Continuity of Care Document ---
Demographics x Preferred Language Unknown Marital Status Unknown Sabianist Affiliation Unknown Race Unknown Ethnic Group Unknown Author Author [facility] Organization [facility] Address Unknown Phone Unavailable Allergies Active Description Code Type Severity Reaction Onset Reported/Identified Relationship to Patient Clinical Status Yes No Known Drug Allergies 45367571 ND N/A N/A Confirmed or Verified Yes NKDA N/A N/A Yes No Known Drug Allergies [id number] Drug Allergy Unknown N/A 12/09/2017 Medications There is no data. 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, initial encounter 09/08/2015 SANDRA TRIPATHI S46.011A Strain of muscle(s) and tendon(s) of the rotator cuff of right shoulder, initial encounter 10/27/2015 SANDRA TRIPATHI G45.9 Transient cerebral ischemic attack, unspecified 10/27/2015 SANDRA TRIPATHI M75.21 Bicipital tendinitis, right shoulder 10/27/2015 SANDRA TRIPATHI R06.02 Shortness of breath 10/27/2015 SANDRA TRIPATHI S46.011D Strain of muscle(s) and tendon(s) of the rotator cuff of right shoulder, subsequent encounter 11/28/2015 AANBEL PATEL M54.12 Radiculopathy, cervical region 11/28/2015 ANABEL PATEL M54.2 Cervicalgia 12/19/2015 ANABEL PATEL M54.12 Radiculopathy, cervical region 12/19/2015 ANABEL PATEL M54.2 Cervicalgia 12/21/2015 SANDRA TRIPATHI M75.121 Complete rotator cuff tear or rupture of right shoulder, not specified as traumatic 12/21/2015 RAFATSANDRA LUZ S14.3XXD Injury of brachial plexus, subsequent encounter 12/09/2017 ENDY CORDON MD, Ot F17.210 NICOTINE DEPENDENCE, CIGARETTES, UNCOMPL 12/09/2017 ENDY CORDON MD Ot L02.416 CUTANEOUS ABSCESS OF LEFT LOWER LIMB 12/09/2017 ENDY CORDON MD Ot R23.4 CHANGES IN SKIN TEXTURE 12/09/2017 ENDY CORDON MD Ot Z90.49 ACQUIRED ABSENCE OF OTHER SPECIFIED PART 12/11/2017 ENDY CORDON MD, Ot F17.210 NICOTINE DEPENDENCE, CIGARETTES, UNCOMPL 12/11/2017 ENDY CORDON MD Ot L02.416 CUTANEOUS ABSCESS OF LEFT LOWER LIMB 12/11/2017 ENDY CORDON MD Ot R23.4 CHANGES IN SKIN TEXTURE 12/11/2017 ENDY CORDON MD Ot Z90.49 ACQUIRED ABSENCE OF OTHER SPECIFIED PART 12/13/2017 LILIBETH VEGAS MD Ot L02.416 CUTANEOUS ABSCESS OF LEFT LOWER LIMB 12/13/2017 LILIBETH VEGAS MD Ot L02.416 CUTANEOUS ABSCESS OF LEFT LOWER LIMB Procedures Code Description Performed By Performed On PHYSICAL PHYSICAL THERAPY, 07/05/2013 35244 MRI SPINE (LUMBAR) W/O CONTRAST 07/14/2013 78156 CBC 12/09/2013 78784 CRP 12/09/2013 6432859 GFR CALC (RESULT ONLY) 12/09/2013 86922 CMP 12/09/2013 Results Test Result Range Gram stain microscopy - 12/09/17 05:36 Gram stain microscopy Few WBC's, rare gram positive cocci NRG Bacteria identification in wound by culture - 12/09/17 05:36 Bacteria identification in wound by culture [id number] NRG FREE TEXT EXTERNAL SENSITIVITY REPORTED 12/10 15:30 NRG QUANTITY OF GROWTH Abundant Growth NRG PBP2 MRSA isolated (Screening test for MRSA is positive) NRG Bacterial susceptibility panel - 12/09/17 05:36 Oxacillin susceptibility test by minimum inhibitory concentration > = NRG Gentamicin susceptibility test by minimum inhibitory concentration < = NRG Clindamycin susceptibility test by minimum inhibitory concentration <= NRG Erythromycin susceptibility test by minimum inhibitory concentration 1 NRG Trimethoprim/sulfamethoxazole susceptibility test by minimum inhibitoryconcentration S NRG Vancomycin susceptibility test by minimum inhibitory concentration < = NRG Levofloxacin susceptibility test by minimum inhibitory concentration <= NRG Rifampin susceptibility test by minimum inhibitory concentration <= NRG Tetracycline susceptibility test by minimum inhibitory concentration <= NRG Encounters ACCT No. Visit Date/Time Discharge Status Pt. Type Provider Facility Loc./Unit Complaint [id number] 05/09/2015 10:21:00 05/09/2015 10:21:00 DIS Outpatient JEAN CARDENAS [facility] RAD [id number] 04/18/2015 12:58:00 04/18/2015 12:58:00 DIS Outpatient ABI PORRAS [facility] RAD [id number] 09/20/2014 15:28:00 09/20/2014 16:16:00 DIS Emergency LINDSEY SPARROW [facility] EMR [id number] 09/15/2014 08:25:00 09/15/2014 13:05:00 DIS Outpatient NEEMA ALFARO [facility] OPS [id number] 12/09/2013 14:17:00 12/09/2013 23:59:59 CLS Outpatient SINGER NELSON, ORLANDO Ledesma [id number] 07/22/2013 09:42:00 07/22/2013 23:59:59 CLS Outpatient LAURA CORRALES DO [id number] 07/09/2013 11:32:00 07/09/2013 23:59:59 CLS Outpatient LAURA CORRALES DO [id number] 07/01/2013 08:46:00 07/01/2013 23:59:59 CLS Outpatient LAURA CORRALES DO [id number] 03/07/2017 12:56:01 03/07/2017 12:56:01 DIS Unknown [id number] 12/11/2017 15:40:00 12/11/2017 16:43:00 DIS Outpatient ASCENCION NELSON, LILIBETH [facility] ER WOUND CHECK [id number] 12/09/2017 05:01:00 12/09/2017 05:56:00 DIS Emergency NERIS NELSON, ENDY Ledesma [facility] ER POSS SPIDER BITE [id number] 12/21/2015 15:00:00 12/21/2015 [id number] 14:15:00 12/19/2015 18:15:00 DIS OP ANABEL PATEL [id number] 11/28/2015 15:15:00 11/28/2015 19:15:00 DIS OP ANABEL PATEL [id number] 10/27/2015 08:30:00 10/27/2015 12:30:00 [id number]2015 10:00:00 09/08/2015 14:00:00 [id number] 01/02/2016 14:45:00 PEN OP
--- OUTSIDE RECORDS SUMMARY | 2018-05-17 03:01 | XMS REPORT | Clinical Summary ---
Author Author Admin, JANI Organization [employer] Address Unknown Phone Unavailable Allergies, [...] without sinus Cough 786.2 Active Stefanie Yokum MEAL ROOM HAND Cough Medication List Medication Instructions Start Date Stop Date Generic Name NDC Status Provider Patient Instruction ZITHROMAX 250 MG TAB 2 po today, then 1 po q days 2-5 AZITHROMYCIN 34018285539 No Longer Active Stefanie Yokum MEAL ROOM HAND Active AMOXICILLIN 500 MG CAP 1 tab by mouth 3 times daily x 10 days AMOXICILLIN 19504831131 No Longer Active Stefanie Yokum MEAL ROOM HAND Active LORTAB 5 5-500 MG TABS 1 tablet by mouth every 6 hours as needed for pain HYDROCODONE-ACETAMINOPHEN 89075957286 No Longer Active Stefanie Yokum MEAL ROOM HAND Active LORTAB 5 5-500 MG TABS 1 tablet by mouth every 6 hours as needed for pain LORTAB 5 5-500 MG TABS HYDROCODONE-ACETAMINOPHEN Inactive AMOXICILLIN 500 MG CAP 1 tab by mouth 3 times daily x 10 days AMOXICILLIN 500 MG CAP 032333 AMOXICILLIN Inactive ZITHROMAX 250 MG TAB 2 po today, then 1 po q days 2-5 ZITHROMAX 250 MG TAB 3957832 AZITHROMYCIN Inactive Vital Signs Date Name Value [...] ... - Chemistry sodium, serum 137 mmol/L 587-736 0079/11/10 potassium, serum 3.9 mmol/L 3.5-5.2 chloride, serum [...] Negative;Positive Encounters Code Encounter Date Provider Facility CPT-28765 Level 3 Est. 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 Patient 12:50:55 CDT Bernardo Cotto MD [facility]
[2018-05-17] MEDS ORDERED: IBUPROFEN 800 MG (MOTRIN) TAB PO ONE (03:15)
--- NOTE | 2018-05-17 03:20 | ED Lower Extremity ---
General Stated Complaint: LEFT FOOT INJURY-SWELLING Source: patient, other (fiance) Exam Limitations: no limitations History of Present Illness Date Seen by Provider: May 17, 2018 Time Seen by Provider: 03:09 Initial Comments Patient presents to the ER by private conveyance with his fiance and a chief complaint that yesterday around 3 to 5:00 in the afternoon he was doing some weed eating at a neighbors house and an open manhole cover got in his way and he fell and twisting his left ankle. He went home and took a tramadol and oxycodone and fell asleep promptly. He then awoke at 3:00 in the morning at which time he decided he needed to come to the ER to be evaluated secondary to his intractable pain. He has taken no Tylenol or Motrin. He does not have a history of cirrhosis but he does have a history of hepatitis C. He smokes half pack per day and denies alcohol or drug use. He has not applied any ice or elevation or compression to his ankle. He has not been seen yet by anyone else for his ankle. No previous history of injury to his leg or ankle. He is insistent that the [facility] will pay for his medical. Allergies and Home Medications Allergies Coded Allergies: No Known Drug Allergies (Unverified , 12/09/17) Home Medications Sulfamethoxazole/Trimethoprim 1 Each Tablet, 1 EACH PO BID Prescribed by: ENDY CORDON on 12/09/17 0527 Patient Home Medication List Home Medication List Reviewed: Yes Constitutional: No chills, No diaphoresis EENTM: No hearing loss, No ear pain Respiratory: No cough, No short of breath Cardiovascular: No chest pain, No edema Gastrointestinal: No abdominal pain, No nausea, No vomiting Genitourinary: No discharge, No dysuria Past Ppmdyht-Pldgft-Zjyqsh Hx Patient Social History Alcohol Use: Denies Use Recreational Drug Use: No Smoking Status: Current Everyday Smoker Type Used: Cigarettes 2nd Hand Smoke Exposure: Yes Recent Foreign Travel: No Contact w/Someone Who Travel: No Recent Hopitalizations: No Immunizations Up To Date Tetanus Booster (TDap): Unknown Seasonal Allergies Seasonal Allergies: No Past Medical History Surgeries: Yes Abdominal, Appendectomy, Orthopedic Respiratory: No Cardiac: No Neurological: No Genitourinary: No Gastrointestinal: No Musculoskeletal: No Endocrine: No HEENT: No Cancer: No Psychosocial: No Integumentary: No Blood Disorders: No Family Medical History No Pertinent Family Hx Physical Exam Vital Signs Vital Signs - First Documented 05/17/18 03:03 Temp 97.9 Pulse 77 Resp 19 B/P (MAP) 122/55 (77) Pulse Ox 100 O2 Delivery Room Air Capillary Refill : Height, Weight, BMI Height: 5'5.00" Weight: 140lbs. oz. 63.435914cc; 21.09 BMI Method:Estimated General Appearance: WD/WN, no apparent distress HEENT: scleral icterus (R), scleral icterus (L) Cardiovascular: normal peripheral pulses, regular rate, rhythm Respiratory: no respiratory distress, no accessory muscle use Ankles: right ankle non-tender, right ankle normal inspection, right ankle normal range of motion, right ankle no evidence of injury; left ankle bone tenderness (medial and lateral malleoli as well as the proximal fifth metatarsal and over the navicular bone. Everywhere palpated from his kelly on down is tender.), left ankle limited range of motion, left ankle swelling (mild lateral malleolar swelling) Feet: right foot non-tender; bilateral foot normal inspection; right foot no evidence of injury; left foot other (abrasion seen on the foot and kelly, superficial) Neurologic/Tendon: normal sensation, normal motor functions, normal tendon functions, responds to pain, no evidence tendon injury Neurologic/Psychiatric: alert, normal mood/affect, oriented x 3 Progress/Results/Core Measures Results/Orders My Orders Orders - LILIBETH VEGAS Ibuprofen Tablet (Motrin Tablet) (05/17/18 03:15) Foot, Left, 3 Views (05/17/18 03:14) Ankle, Left, 3 Views (05/17/18 03:14) Medications Given in ED Current Medications Medications Dose Ordered Sig/Dorothea Route Start Time Stop Time Status Last Admin Dose Admin Ibuprofen 800 mg ONCE ONCE PO 05/17/18 03:15 05/17/18 03:16 DC 05/17/18 03:24 800 MG Vital Signs/I&O 05/17/18 03:03 Temp 97.9 Pulse 77 Resp 19 B/P (MAP) 122/55 (77) Pulse Ox 100 O2 Delivery Room Air Progress Progress Note : Time: 03:22 Progress Note We'll start with NSAIDs for his pain, ice and elevation as well as get some x- rays of his ankle and foot. He Sharan has a set of crutches. Will use Chalino wrap for compression. Diagnostic Imaging Diagonstic Imaging: Xray Plain Films/CT/US/NM/MRI: ankle, other (feet) Comments No acute osseous abnormalities noted on the ankle and foot x-rays Reviewed: Reviewed by Me Departure Impression Primary Impression: Left ankle sprain Qualified Codes: S93.402A - Sprain of unspecified ligament of left ankle, initial encounter Disposition: HOME, SELF-CARE Condition: Stable Departure-Patient Inst. Decision time for Depature: 04:25 Referrals: NO,LOCAL PHYSICIAN (PCP/Family) Primary Care Physician Patient Instructions: Ankle Sprain (DC) Add. Discharge Instructions: Keep the ankle elevated above the heart and use the crutches as necessary. You can use the air splint or an Chalino wrap for compression for the next week. Ice applied for 20 minutes every 4 hours for the first 3 days. Motrin 800 mg every 8 hours as needed for pain. If you're not having any improvement by 7-10 days then you should follow up with your primary care doctor for reevaluation. LILIBETH VEGAS May 17, 2018 03:20
[2018-05-17 04:33] VITALS: BP 122/55
--- NOTE | 2018-05-17 08:21 | Diagnostic Imaging Report ---
PATIENT HISTORY: Fall, injury to left ankle and foot. TECHNIQUE: 3 views of the left foot. COMPARISON: None FINDINGS: No acute fracture or dislocation is seen in the left foot. Alignment appears normal. There is mild dorsal soft tissue edema. Joint spaces are generally preserved. IMPRESSION: No acute osseous abnormality seen in the left foot. Dictated by: Dictated on workstation # [id number]
--- NOTE | 2018-05-17 08:34 | Diagnostic Imaging Report ---
PATIENT HISTORY: Fall, injury to left ankle. TECHNIQUE: 3 views of the left ankle COMPARISON: None FINDINGS: No acute fracture or dislocation is seen in the left ankle. Alignment appears normal. Joint spaces are preserved. No significant left ankle joint effusion is seen. Ankle mortise is symmetric and the talar dome is intact. IMPRESSION: No acute osseous abnormality seen in the left ankle. Dictated by: Dictated on workstation # [id number]
== END 2018-05-17 04:35 | disposition home or self-care (01) ==
LOC: EDUNIT# 02:48 → ER 02:51
DX: S93.402A Sprain of unspecified ligament of left ankle, initial encounter (principal); F17.210 Nicotine dependence, cigarettes, uncomplicated; Z90.89 Acquired absence of other organs; W18.30XA Fall on same level, unspecified, initial encounter; X50.0XXA Overexertion from strenuous movement or load, initial encounter
CPT/HCPCS: 73610; 73630

== ENCOUNTER 2018-10-07 22:24 | Emergency (ER) | payer MEDICAID ==
[~2018-10-07] VITALS: Ht 165.1 cm; Wt 66.2 kg
[~2018-10-07 22:24] MED LIST changes: +CEPH-507 PO; +PERM60CR4 TP
--- OUTSIDE RECORDS SUMMARY | 2018-10-07 22:33 | XMS REPORT | Continuity of Care Document ---
Demographics x Preferred Language Unknown Marital Status Unknown Buddhist Affiliation Unknown Race Unknown Ethnic Group Unknown Author Author [facility] Organization [facility] Address Unknown Phone Unavailable Allergies Active Description Code Type Severity Reaction Onset Reported/Identified Relationship to Patient Clinical Status Yes No Known Drug Allergies 88407185 ND N/A N/A Confirmed or Verified Yes NKDA N/A N/A Yes No Known Drug Allergies [id number] Drug Allergy Unknown N/A 12/09/2017 Medications There [...] SANDRA TRIPATHI R06.02 Shortness of breath 09/08/2015 SANRDA TRIPATHI S14.3XXA Injury of brachial plexus, initial [...] cuff of right shoulder, subsequent encounter 11/28/2015 ANABEL PATEL M54.12 Radiculopathy, cervical region 11/28/2015 ANABEL PATEL M54.2 Cervicalgia 12/19/2015 ANABEL PATEL M54.12 Radiculopathy, cervical region 12/19/2015 ANABEL PATEL M54.2 Cervicalgia 12/21/2015 ODINElizabethSANDRA LUZ M75.121 Complete rotator cuff tear or rupture of right shoulder, not specified as traumatic 12/21/2015 ODINSUKHSANDRA S14.3XXD Injury of brachial plexus, subsequent encounter 12/09/2017 ENDY CORDON MD, Ot F17.210 NICOTINE DEPENDENCE, CIGARETTES, UNCOMPL 12/09/2017 ENDY CORDON MD Ot L02.416 CUTANEOUS ABSCESS OF LEFT LOWER LIMB 12/09/2017 ENDY CORDON MD Ot R23.4 CHANGES IN SKIN TEXTURE 12/09/2017 ENDY CORDON MD Ot Z90.49 ACQUIRED ABSENCE OF OTHER SPECIFIED PART 12/11/2017 ENDY CORDON MD Ot F17.210 NICOTINE DEPENDENCE, CIGARETTES, UNCOMPL 12/11/2017 [...] L02.416 CUTANEOUS ABSCESS OF LEFT LOWER LIMB 05/17/2018 LILIBETH VEGAS MD Ot F17.210 NICOTINE DEPENDENCE, CIGARETTES, UNCOMPL 05/17/2018 LILIBETH VEGAS MD Ot S93.402A SPRAIN OF UNSPECIFIED LIGAMENT OF LEFT A 05/17/2018 LILIBETH VEGAS MD Ot S99.911A UNSPECIFIED INJURY OF RIGHT ANKLE, INITI 05/17/2018 LILIBETH VEGAS MD Ot W18.30XA FALL ON SAME LEVEL, UNSPECIFIED, INITIAL 05/17/2018 LILIBETH VEGAS MD Ot X50.0XXA OVEREXERTION FROM STRENUOUS MOVEMENT OR 05/17/2018 LILIBETH VEGAS MD Ot Z90.89 ACQUIRED ABSENCE OF OTHER ORGANS 05/20/2018 LILIBETH VEGAS MD Ot F17.210 NICOTINE DEPENDENCE, CIGARETTES, UNCOMPL 05/20/2018 LILIBETH VEGAS MD Ot S93.402A SPRAIN OF UNSPECIFIED LIGAMENT OF LEFT A 05/20/2018 LILIBETH VEGAS MD Ot S99.911A UNSPECIFIED INJURY OF RIGHT ANKLE, INITI 05/20/2018 LILIBETH VEGAS MD Ot W18.30XA FALL ON SAME LEVEL, UNSPECIFIED, INITIAL 05/20/2018 LILIBETH VEGAS MD Ot X50.0XXA OVEREXERTION FROM STRENUOUS MOVEMENT OR 05/20/2018 LILIBETH VEGAS MD Ot Z90.89 ACQUIRED ABSENCE OF OTHER ORGANS 05/26/2018 LILIBETH VEGAS MD Ot B86 SCABIES 05/26/2018 LILIBETH VEGAS MD Ot F17.210 NICOTINE DEPENDENCE, CIGARETTES, UNCOMPL 05/26/2018 LILIBETH VEGAS MD Ot L03.116 CELLULITIS OF LEFT LOWER LIMB 05/26/2018 LILIBETH VEGAS MD Ot M79.662 PAIN IN LEFT LOWER LEG 05/26/2018 LILIBETH VEGAS MD Ot Z87.39 PERSONAL HISTORY OF DISEASES OF THE MS S 05/26/2018 LILIBETH VEGAS MD Ot Z90.49 ACQUIRED ABSENCE OF OTHER SPECIFIED PART 05/28/2018 LILIBETH VEGAS MD Ot B86 SCABIES 05/28/2018 LILIBETH VEGAS MD Ot F17.210 NICOTINE DEPENDENCE, CIGARETTES, UNCOMPL 05/28/2018 LILIBETH VEGAS MD Ot L03.116 CELLULITIS OF LEFT LOWER LIMB 05/28/2018 LILIBETH VEGAS MD Ot M79.662 PAIN IN LEFT LOWER LEG 05/28/2018 LILIBETH VEGAS MD Ot Z87.39 PERSONAL HISTORY OF DISEASES OF THE MS S 05/28/2018 LILIBETH VEGAS MD Ot Z90.49 ACQUIRED ABSENCE OF OTHER SPECIFIED PART Procedures Code Description Performed By Performed On PHYSICAL PHYSICAL THERAPY, 07/05/2013 44049 MRI SPINE (LUMBAR) W/O CONTRAST 07/14/2013 01137 CBC 12/09/2013 91231 CRP 12/09/2013 2070101 GFR CALC (RESULT ONLY) 12/09/2013 21190 CMP 12/09/2013 Results Test Result Range Gram stain microscopy - 12/09/17 05:36 Gram stain microscopy Few WBC's, rare gram positive cocci NRG Bacteria identification in wound by culture - 12/09/17 05:36 Bacteria identification in wound by culture [id number] NRG FREE TEXT EXTERNAL SENSITIVITY REPORTED 12/10 [...] Status Pt. Type Provider Facility Loc./Unit Complaint [id number] 05/09/2015 10:21:00 05/09/2015 10:21:00 DIS Outpatient JEAN CARDENAS [facility] RAD [id number] 04/18/2015 12:58:00 04/18/2015 12:58:00 DIS Outpatient ABI PORRAS [facility] RAD [id number] 09/20/2014 15:28:00 09/20/2014 16:16:00 DIS Emergency LINDSEY SPARROW [facility] EMR [id number] 09/15/2014 08:25:00 09/15/2014 13:05:00 DIS Outpatient NEEMA ALFARO [facility] OPS [id number] 12/09/2013 14:17:00 12/09/2013 23:59:59 CLS Outpatient ORLANDO MATHUR MD [id number] 07/22/2013 09:42:00 07/22/2013 23:59:59 CLS Outpatient LAURA CORRALES DO [id number] 07/09/2013 11:32:00 07/09/2013 23:59:59 CLS Outpatient LAURA CORRALES DO [id number] 07/01/2013 08:46:00 07/01/2013 23:59:59 CLS Outpatient LAURA CORRALES DO [id number] 03/07/2017 12:56:01 03/07/2017 12:56:01 DIS Unknown [id number] 05/26/2018 01:49:00 05/26/2018 02:13:00 DIS Emergency LILIBETH VEGAS MD [facility] ER LEFT LEG PAIN, POSS INFECTION [id number] 05/17/2018 02:51:00 05/17/2018 04:35:00 DIS Emergency LILIBETH VEGAS MD [facility] ER LEFT FOOT INJURY-SWELLING [id number] 12/11/2017 15:40:00 12/11/2017 16:43:00 DIS Outpatient LILIBETH VEGAS MD [facility] ER WOUND CHECK [id number] 12/09/2017 05:01:00 12/09/2017 05:56:00 DIS Emergency ENDY CORDON MD [facility] ER POSS SPIDER BITE [id number] 12/21/2015 15:00:00 12/21/2015 [id number] 14:15:00 12/19/2015 18:15:00 DIS OP ANABEL PATEL [id number] 11/28/2015 15:15:00 11/28/2015 19:15:00 DIS ANABEL GREGORY [id number] 10/27/2015 08:30:00 10/27/2015 12:30:00 [id number] 09/08/2015 10:00:00 09/08/2015 [facility]00[facility]00 [id number] 01/[facility]/2016 14:45:00 PEN OP
[2018-10-07] MEDS ORDERED: NALOXONE 0.4 MG/ML 1 ML (NARCAN) VIAL IV STA (23:01)
[2018-10-07 23:02] LABS: BASOPHILS % (AUTO) 0 % (0-10); EOSINOPHILS # (AUTO) 0.2 10^3/uL (0.0-0.3); EOSINOPHILS % (AUTO) 2 % (0-10); HEMATOCRIT 43 % (40-54); HEMOGLOBIN 15.2 G/DL (13.3-17.7); LYMPHOCYTES # (AUTO) 2.1 X 10^3 (1.0-4.0); LYMPHOCYTES % (AUTO) 23 % (12-44); MEAN CORPUSCULAR HEMOGLOBIN 33 PG (25-34); MEAN CORPUSCULAR HGB CONC 35 G/DL (32-36); MEAN CORPUSCULAR VOLUME 93 FL (80-99); MONOCYTES # (AUTO) 1.1 X 10^3 (0.0-1.0); MONOCYTES % (AUTO) 12 % (0-12); NEUTROPHILS # (AUTO) 5.9 X 10^3 (1.8-7.8); NEUTROPHILS % (AUTO) 63 % (42-75); PLATELET COUNT 111 10^3/uL (130-400); RED BLOOD COUNT 4.67 10^6/uL (4.35-5.85); RED CELL DISTRIBUTION WIDTH 13.9 % (10.0-14.5); WHITE BLOOD COUNT 9.4 10^3/uL (4.3-11.0)
[2018-10-07 23:07] LABS: PROTHROMBIN TIME PATIENT 12.8 SEC (12.2-14.7)
[2018-10-07 23:15] LABS: ALANINE AMINOTRANSFERASE 54 U/L (0-55); ALKALINE PHOSPHATASE 487 U/L (40-136); AMYLASE 61 U/L (25-125); BILIRUBIN,TOTAL 0.9 MG/DL (0.1-1.0); BUN/CREATININE RATIO 17; CALCIUM 9.1 MG/DL (8.5-10.1); CARBON DIOXIDE 24 MMOL/L (21-32); CHLORIDE 103 MMOL/L (98-107); CREATINE KINASE 59 U/L (30-200); CREATININE SERUM 0.76 MG/DL (0.60-1.30); GFR ESTIMATED > 60; GLUCOSE 248 MG/DL (70-105); MAGNESIUM 2.1 MG/DL (1.8-2.4); POTASSIUM 4.4 MMOL/L (3.6-5.0); SODIUM 137 MMOL/L (135-145); TOTAL PROTEIN 7.1 GM/DL (6.4-8.2)
[2018-10-07 23:18] LABS: ACETAMINOPHEN < 10 UG/ML (10-30)
[2018-10-07 23:34] LABS: CREATINE KINASE MB 0.9 NG/ML (<6.6); TSH (THYROID ANALYZER) 1.12 UIU/ML (0.35-4.94)
[2018-10-08] MEDS ORDERED: NS IV 1000 ML 1,000 ML ONE (00:31)
[2018-10-08] MEDS ORDERED: NS IV 1000 ML 1,000 ML IV ONE (00:32)
[2018-10-08 00:56] LABS: BILIRUBIN,URINE NEGATIVE (NEGATIVE); CLARITY,URINE CLEAR; COLOR,URINE YELLOW; GLUCOSE, URINE (UA) 4+ (NEGATIVE); KETONES,URINE NEGATIVE (NEGATIVE); LEUKOCYTE ESTERASE ,URINE NEGATIVE (NEGATIVE); NITRITE,URINE NEGATIVE (NEGATIVE); PH,URINE 6 (5-9); PROTEIN,URINE 1+ (NEGATIVE); UROBILINOGEN,URINE 1 MG/DL (NORMAL)
[2018-10-08] MEDS ORDERED: KETOROLAC 30 MG/ML VIAL IVP ONE (01:00)
[2018-10-08 01:07] LABS: AMPHETAMINE SCREEN, URINE NEGATIVE (NEGATIVE); BARBITURATE SCREEN URINE NEGATIVE (NEGATIVE); BENZODIAZEPINES SCREEN URINE NEGATIVE (NEGATIVE); CANNABINOID SCREEN, URINE NEGATIVE (NEGATIVE); COCAINE SCREEN URINE NEGATIVE (NEGATIVE); METHADONE STAT NEGATIVE (NEGATIVE); METHAMPHETAMINE SCREEN URINE S NEGATIVE (NEGATIVE); OPIATE SCREEN URINE NEGATIVE (NEGATIVE); OXYCODONE STAT NEGATIVE (NEGATIVE); PROPOXYPHENE STAT NEGATIVE (NEGATIVE); TRICYCLIC ANTIDEPRESSANTS SCRE NEGATIVE (NEGATIVE)
[2018-10-08 01:09] LABS: BACTERIA,URINE NEGATIVE /HPF; SQUAMOUS EPITHELIAL CELL,UR RARE /HPF
[2018-10-08] MEDS ORDERED: KETOROLAC 30 MG/ML VIAL ONE (01:11)
--- NOTE | 2018-10-08 01:26 | ED General ---
General Chief Complaint: General Problems/Pain Stated Complaint: LOW BLOOD SUGAR Allergies and Home Medications Allergies Coded Allergies: No Known Drug Allergies (Unverified , 12/09/17) Home Medications Cephalexin 500 Mg Capsule, 500 MG PO QIDACHS Prescribed by: LILIBETH VEGAS on 05/26/18207 Permethrin 60 Gm Cream..g., 30 GM TP ONCE Apply from neck down and wear overnight. Wash off in the morning. Repeat in 2 weeks. Prescribed by: LILIBETH VEGAS on 05/26/18207 Sulfamethoxazole/Trimethoprim 1 Each Tablet, 1 EACH PO BID Prescribed by: ENDY CORDON on 12/09/17 0527 Past Bcryjcg-Pxydka-Mnmwsh Hx Patient Social History Type Used: Cigarettes 2nd Hand Smoke Exposure: Yes Recent Foreign Travel: No Contact w/Someone Who Travel: No Recent Hopitalizations: No Immunizations Up To Date Tetanus Booster (TDap): Unknown Seasonal Allergies Seasonal Allergies: No Past Medical History Surgeries: Yes (HERNIA) Abdominal, Appendectomy, Orthopedic Respiratory: No Cardiac: No Neurological: No Genitourinary: No Gastrointestinal: No Musculoskeletal: No Endocrine: No HEENT: No Cancer: No Psychosocial: No Integumentary: No Blood Disorders: No Family Medical History No Pertinent Family Hx Physical Exam Vital Signs Capillary Refill : Height, Weight, BMI Height: 5'7.00" Weight: 165lbs. oz. 74.237313ja; 21.09 BMI Method:Estimated Focused Exam Lactate Level 10/07/18 23:40: Lactic Acid Level 1.41 Lactic Acid Level Laboratory Tests Test 10/07/18 23:40 Lactic Acid Level 1.41 MMOL/L (0.50-2.00) Progress/Results/Core Measures Suspected Sepsis SIRS Temperature: Pulse: Respiratory Rate: Laboratory Tests 10/07/18 22:45: White Blood Count 9.4 Blood Pressure / Mean: 10/07/18 23:40: Lactic Acid Level 1.41 Laboratory Tests 10/07/18 22:45: Creatinine 0.76, INR Comment 1.0, Platelet Count 111L, Total Bilirubin 0.9 Results/Orders Lab Results Laboratory Tests Test 10/07/18 22:34 10/07/18 22:45 10/07/18 23:40 10/08/18 00:52 Range/Units Glucometer 223 H 70-110 MG/DL White Blood Count 9.4 4.3-11.0 10^3/uL Red Blood Count 4.67 4.35-5.85 10^6/uL Hemoglobin 15.2 13.3-17.7 G/DL Hematocrit 43 40-54 % Mean Corpuscular Volume 93 80-99 FL Mean Corpuscular Hemoglobin 33 25-34 PG Mean Corpuscular Hemoglobin Concent 35 32-36 G/DL Red Cell Distribution Width 13.9 10.0-14.5 % Platelet Count 111 L 130-400 10^3/uL Mean Platelet Volume 12.0 H 7.4-10.4 FL Neutrophils (%) (Auto) 63 42-75 % Lymphocytes (%) (Auto) 23 12-44 % Monocytes (%) (Auto) 12 0-12 % Eosinophils (%) (Auto) 2 0-10 % Basophils (%) (Auto) 0 0-10 % Neutrophils # (Auto) 5.9 1.8-7.8 X 10^3 Lymphocytes # (Auto) 2.1 1.0-4.0 X 10^3 Monocytes # (Auto) 1.1 H 0.0-1.0 X 10^3 Eosinophils # (Auto) 0.2 0.0-0.3 10^3/uL Basophils # (Auto) 0.0 0.0-0.1 10^3/uL Prothrombin Time 12.8 12.2-14.7 SEC INR Comment 1.0 0.8-1.4 Activated Partial Thromboplast Time 36 H 24-35 SEC Sodium Level 137 135-145 MMOL/L Potassium Level 4.4 3.6-5.0 MMOL/L Chloride Level 103 98-107 MMOL/L Carbon Dioxide Level 24 21-32 MMOL/L Anion Gap 10 5-14 MMOL/L Blood Urea Nitrogen 13 7-18 MG/DL Creatinine 0.76 0.60-1.30 MG/DL Estimat Glomerular Filtration Rate > 60 BUN/Creatinine Ratio 17 Glucose Level 248 H 70-105 MG/DL Calcium Level 9.1 8.5-10.1 MG/DL Corrected Calcium 9.1 8.5-10.1 MG/DL Magnesium Level 2.1 1.8-2.4 MG/DL Total Bilirubin 0.9 0.1-1.0 MG/DL Aspartate Amino Transf (AST/SGOT) 88 H 5-34 U/L Alanine Aminotransferase (ALT/SGPT) 54 0-55 U/L Alkaline Phosphatase 487 H 40-136 U/L Total Creatine Kinase 59 30-200 U/L Creatine Kinase MB 0.9 <6.6 NG/ML Troponin I < 0.028 <0.028 NG/ML Total Protein 7.1 6.4-8.2 GM/DL Albumin 4.0 3.2-4.5 GM/DL Amylase Level 61 25-125 U/L TSH [place] Testing 1.12 0.35-4.94 UIU/ML Acetaminophen Level < 10 L 10-30 UG/ML Serum Alcohol < 10 <10 MG/DL Lactic Acid Level 1.41 0.50-2.00 MMOL/L Urine Color YELLOW Urine Clarity CLEAR Urine pH 6 5-9 Urine Specific [place] 1.020 1.016-1.022 Urine Protein 1+ H NEGATIVE Urine Glucose (UA) 4+ H NEGATIVE Urine Ketones NEGATIVE NEGATIVE Urine Nitrite NEGATIVE NEGATIVE Urine Bilirubin NEGATIVE NEGATIVE Urine Urobilinogen 1 NORMAL MG/DL Urine Leukocyte Esterase NEGATIVE NEGATIVE Urine RBC (Auto) NEGATIVE NEGATIVE Urine RBC NONE /HPF Urine WBC NONE /HPF Urine Squamous Epithelial Cells RARE /HPF Urine Crystals NONE /LPF Urine Bacteria NEGATIVE /HPF Urine Casts NONE /LPF Urine Mucus NEGATIVE /LPF Urine Culture Indicated NO Urine Opiates Screen NEGATIVE NEGATIVE Urine Oxycodone Screen NEGATIVE NEGATIVE Urine Methadone Screen NEGATIVE NEGATIVE Urine Propoxyphene Screen NEGATIVE NEGATIVE Urine Barbiturates Screen NEGATIVE NEGATIVE Ur Tricyclic Antidepressants Screen NEGATIVE NEGATIVE Urine Phencyclidine Screen NEGATIVE NEGATIVE Urine Amphetamines Screen NEGATIVE NEGATIVE Urine Methamphetamines Screen NEGATIVE NEGATIVE Urine Benzodiazepines Screen NEGATIVE NEGATIVE Urine Cocaine Screen NEGATIVE NEGATIVE Urine Cannabinoids Screen NEGATIVE NEGATIVE Test 10/08/18 01:18 Range/Units Micro Results Microbiology 10/07/18 Influenza Types A,B Antigen (STACIE) - Final, Complete My Orders Orders - DELMER LANG DO Accucheck Stat ONCE (10/07/18 22:53) Saline Lock/Iv-Start (10/07/18 22:53) Ekg Tracing (10/07/18 22:53) O2 (10/07/18 22:53) Monitor-Rhythm Ecg Trace Only (10/07/18 22:53) Ct Head Wo-R/O Stroke (10/07/18 22:53) Acetaminophen (10/07/18 22:53) Alcohol (10/07/18 22:53) Amylase (10/07/18 22:53) Cbc With Automated Diff (10/07/18 22:53) Comprehensive Metabolic Panel (10/07/18 22:53) Creatine Kinase (10/07/18 22:53) Creatine Kinase Mb (10/07/18 22:53) Drug Screen Stat (Urine) (10/07/18 22:53) Lactic Acid Analyzer (10/07/18 22:53) Magnesium (10/07/18 22:53) Protime With Inr (10/07/18 22:53) Partial Thromboplastin Time (10/07/18 22:53) Thyroid Analyzer (10/07/18 22:53) Troponin I (10/07/18 22:53) Ua Culture If Indicated (10/07/18 22:53) Blood Culture (10/07/18 22:53) Influenza A And B Antigens (10/07/18 22:53) Chest 1 View, Ap/Pa Only (10/07/18 22:53) Catheter(Urinary) Insert & Ass 03,15 (10/07/18 23:00) Naloxone Injection (Narcan Injection) (10/07/18 23:01) Saline Lock/Iv-Start (10/08/18 00:32) Ns Iv 1000 Ml (Sodium Chloride 0.9%) (10/08/18 00:32) Ns Iv 1000 Ml (Sodium Chloride 0.9%) (10/08/18 00:31) Ketorolac Injection (Toradol Injection) (10/08/18 01:00) Hemoglobin A1c (10/08/18 01:16) Medications Given in ED Current Medications Medications Dose Ordered Sig/Dorothea Route Start Time Stop Time Status Last Admin Dose Admin Sodium Chloride 1,000 ml @ 0 mls/hr Q0M ONCE IV 10/08/18 00:32 10/08/18 00:41 DC 10/08/18 00:35 1,000 MLS/HR Vital Signs/I&O Capillary Refill : Point of Care Testing Finger Stick Blood Glucose: 223 Departure Impression Primary Impression: Hyperglycemia Disposition: 01 HOME, SELF-CARE Condition: Improved Departure-Patient Inst. Referrals: NO,LOCAL PHYSICIAN (PCP/Family) Primary Care Physician Patient Instructions: Hyperglycemia, Adult (DC) Add. Discharge Instructions: FOLLOW UP WITH YOUR DR THIS WEEK FOR FURTHER CARE All discharge instructions reviewed with patient and/or family. Voiced understanding. DELMER LANG DO Oct 08, 2018 01:25
[2018-10-08 01:42] VITALS: BP 134/92
--- NOTE | 2018-10-08 08:13 | Diagnostic Imaging Report ---
INDICATION: Cough and shortness of breath Portable chest 11:52 PM Heart size and pulmonary vascularity are normal. Lungs are clear. There are no effusions or pneumothoraces. IMPRESSION: Negative chest. Dictated by: Dictated on workstation # [id number]
--- NOTE | 2018-10-08 08:34 | Diagnostic Imaging Report ---
PROCEDURE: CT head wo r/o stroke. TECHNIQUE: Multiple contiguous axial images were obtained through the brain without the use of intravenous contrast. INDICATION: Posterior head pain for 2 years. FINDINGS: Ventricles and sulci are within normal limits. No sulcal effacement is identified. There is no midline shift. No acute intra-axial or extra-axial hemorrhage is detected. Cisterns are patent. The visualized paranasal sinuses are clear. IMPRESSION: No acute intracranial process is detected. Dictated by: Dictated on workstation # [id number]
== END 2018-10-08 01:42 | disposition home or self-care (01) ==
LOC: EDUNIT# 22:24 → ER 22:26
DX: E16.2 Hypoglycemia, unspecified (principal); Z77.22 Contact with and (suspected) exposure to environmental tobacco smoke (acute) (chronic); Z90.49 Acquired absence of other specified parts of digestive tract; Z98.890 Other specified postprocedural states
CPT/HCPCS: 36415; 70450; 71045; 80053; 80306; 80320; 80329; 81000; 82150; 82550; 82553; 82962; 83036; 83605; 83735; 84443; 84484; 85025; 85610; 85730; 87040; 87804; 93005; 93041; 96374; 96375

== ENCOUNTER 2018-12-20 00:17 | Emergency (ER) | payer MEDICAID ==
[~2018-12-20] VITALS: Ht 165.1 cm; Wt 56.7 kg
--- OUTSIDE RECORDS SUMMARY | 2018-12-20 00:27 | XMS REPORT | Continuity of Care Document ---
Demographics x Preferred Language Unknown Marital Status Unknown Hoahaoism Affiliation Unknown Race Unknown Ethnic Group Unknown Author Author [facility] Organization [facility] Address Unknown Phone Unavailable Allergies Active Description Code Type Severity Reaction Onset Reported/Identified Relationship to Patient Clinical Status Yes No Known Drug Allergies [id number] ND N/A N/A Confirmed or Verified Yes NKDA N/A N/A Yes No Known Drug Allergies [id number] Drug Allergy Unknown N/A 12/09/2017 Medications There [...] ACQUIRED ABSENCE OF OTHER SPECIFIED PART 12/11/2017 LILIBETH VEGAS MD Ot L02.416 CUTANEOUS ABSCESS [...] F17.210 NICOTINE DEPENDENCE, CIGARETTES, UNCOMPL 05/26/2018 LILIBETH VEGSA MD Ot L03.116 CELLULITIS OF LEFT LOWER [...] Z90.49 ACQUIRED ABSENCE OF OTHER SPECIFIED PART 10/08/2018 DELMER LANG DO Ot E16.2 HYPOGLYCEMIA, UNSPECIFIED 10/08/2018 DELMER LANG DO Ot Z77.22 CNTCT W AND EXPSR TO ENVIRON TOBACCO SMO 10/08/2018 RICKEY DO, DELMER K Ot Z90.49 ACQUIRED ABSENCE OF OTHER SPECIFIED PART 10/08/2018 RICKEY DOVERONAA K Ot Z98.890 OTHER SPECIFIED POSTPROCEDURAL STATES 10/09/2018 RICKEY DOVERONAA K Ot E16.2 HYPOGLYCEMIA, UNSPECIFIED 10/09/2018 RICKEY DO, DELMER K Ot Z77.22 CNTCT W AND EXPSR TO ENVIRON TOBACCO SMO 10/09/2018 RICKEY DO, DELMER K Ot Z90.49 ACQUIRED ABSENCE OF OTHER SPECIFIED PART 10/09/2018 RICKEY DO, DELMER K Ot Z98.890 OTHER SPECIFIED POSTPROCEDURAL STATES 10/13/2018 RICKEY DO, DELMER K Ot E16.2 HYPOGLYCEMIA, UNSPECIFIED 10/13/2018 RICKEY DO, DELMER K Ot Z77.22 CNTCT W AND EXPSR TO ENVIRON TOBACCO SMO 10/13/2018 RICKEY DO, DELMER K Ot Z90.49 ACQUIRED ABSENCE OF OTHER SPECIFIED PART 10/13/2018 RICKEY DO, DELMER K Ot Z98.890 OTHER SPECIFIED POSTPROCEDURAL STATES Procedures Code Description Performed By Performed On PHYSICAL PHYSICAL THERAPY, 07/05/2013 92294 MRI SPINE (LUMBAR) W/O CONTRAST 07/14/2013 91003 CBC 12/09/2013 21158 CRP 12/09/2013 2560604 GFR CALC (RESULT ONLY) 12/09/2013 47467 CMP 12/09/2013 Results Test Result Range Gram stain microscopy - 12/09/17 05:36 Gram stain microscopy Few WBC's, rare gram positive cocci NRG Bacteria identification in wound by culture - 12/09/17 05:36 Bacteria identification in wound by culture [id number] NR FREE TEXT EXTERNAL SENSITIVITY REPORTED 12/10 15:30 NRG QUANTITY OF GROWTH Abundant Growth NRG PBP2 MRSA isolated (Screening test for MRSA is positive) NR Bacterial susceptibility panel - 12/09/17 05:36 Oxacillin [...] test by minimum inhibitory concentration <= NRG Capillary blood glucose measurement by glucometer (mass/volume) - 10/07/18 22: 34 Capillary blood glucose measurement by glucometer (mass/volume) 223 mg/dL 70-110 Complete blood count (CBC) with automated white blood cell (WBC) differential - 10/07/18 22:45 Blood leukocytes automated count (number/volume) 9.4 10*3/uL 4.3-11.0 Blood erythrocytes automated count (number/volume) 4.67 10*6/uL 4.35-5.85 Venous blood hemoglobin measurement (mass/volume) 15.2 g/dL 13.3-17.7 Blood hematocrit (volume fraction) 43 % 40-54 Automated erythrocyte mean corpuscular volume 93 [foz_us] 80-99 Automated erythrocyte mean corpuscular hemoglobin (mass per erythrocyte) 33 pg 25-34 Automated erythrocyte mean corpuscular hemoglobin concentration measurement ( mass/volume) 35 g/dL 32-36 Automated erythrocyte distribution width ratio 13.9 % 10.0-14.5 Automated blood platelet count (count/volume) 111 10*3/uL 130-400 Automated blood platelet mean volume measurement 12.0 [foz_us] 7.4-10.4 Automated blood neutrophils/100 leukocytes 63 % 42-75 Automated blood lymphocytes/100 leukocytes 23 % 12-44 Blood monocytes/100 leukocytes 12 % 0-12 Automated blood eosinophils/100 leukocytes 2 % 0-10 Automated blood basophils/100 leukocytes 0 % 0-10 Blood neutrophils automated count (number/volume) 5.9 10*3 1.8-7.8 Blood lymphocytes automated count (number/volume) 2.1 10*3 1.0-4.0 Blood monocytes automated count (number/volume) 1.1 10*3 0.0-1.0 Automated eosinophil count 0.2 10*3/uL 0.0-0.3 Automated blood basophil count (count/volume) 0.0 10*3/uL 0.0-0.1 PT panel in platelet poor plasma by coagulation assay - 10/07/18 22:45 Prothrombin time (PT) in platelet poor plasma by coagulation assay 12.8 s 12.2-14.7 INR in platelet poor plasma or blood by coagulation assay 1.0 0.8-1.4 Activated partial thromboplastin time (aPTT) in platelet poor plasma bycoagulation assay - 10/07/18 22:45 Activated partial thromboplastin time (aPTT) in platelet poor plasma bycoagulation assay 36 s 24-35 Comprehensive metabolic panel - 10/07/18 22:45 Serum or plasma sodium measurement (moles/volume) 137 mmol/L 135-145 Serum or plasma potassium measurement (moles/volume) 4.4 mmol/L 3.6-5.0 Serum or plasma chloride measurement (moles/volume) 103 mmol/L 98-107 Carbon dioxide 24 mmol/L 21-32 Serum or plasma anion gap determination (moles/volume) 10 mmol/L 5-14 Serum or plasma urea nitrogen measurement (mass/volume) 13 mg/dL 7-18 Serum or plasma creatinine measurement (mass/volume) 0.76 mg/dL 0.60-1.30 Serum or plasma urea nitrogen/creatinine mass ratio 17 NRG Serum or plasma creatinine measurement with calculation of estimated glomerular filtration rate > NRG Serum or plasma glucose measurement (mass/volume) 248 mg/dL 70-105 Serum or plasma calcium measurement (mass/volume) 9.1 mg/dL 8.5-10.1 Serum or plasma total bilirubin measurement (mass/volume) 0.9 mg/dL 0.1-1.0 Serum or plasma alkaline phosphatase measurement (enzymatic activity/volume) 487 U/L 40-136 Serum or plasma aspartate aminotransferase measurement (enzymatic activity/ volume) 88 U/L 5-34 Serum or plasma alanine aminotransferase measurement (enzymatic activity/volume ) 54 U/L 0-55 Serum or plasma protein measurement (mass/volume) 7.1 g/dL 6.4-8.2 Serum or plasma albumin measurement (mass/volume) 4.0 g/dL 3.2-4.5 CALCIUM CORRECTED 9.1 mg/dL 8.5-10.1 Magnesium - 10/07/18 22:45 Magnesium 2.1 mg/dL 1.8-2.4 Serum or plasma creatine kinase measurement (enzymatic activity/volume) - 10/07 22:45 Serum or plasma creatine kinase measurement (enzymatic activity/volume) 59 U/L 30-200 Serum or plasma creatine kinase MB measurement (enzymatic activity/volume) - 22:45 Serum or plasma creatine kinase MB measurement (enzymatic activity/volume) 0.9 ng/mL <6.6 Serum or plasma troponin i.cardiac measurement (mass/volume) - 10/07/18 22:45 Serum or plasma troponin i.cardiac measurement (mass/volume) < ng/ mL <0.028 Serum or plasma amylase measurement (enzymatic activity/volume) - 10/07/18 22: 45 Serum or plasma amylase measurement (enzymatic activity/volume) 61 U /L 25-125 Serum or plasma thyrotropin measurement by detection limit <=0.05 miu/l (units/ volume) - 10/07/18 22:45 Serum or plasma thyrotropin measurement by detection limit <=0.05 miu/l (units/ volume) 1.12 u[iU]/mL 0.35-4.94 Serum or plasma acetaminophen measurement (mass/volume) - 10/07/18 22:45 Serum or plasma acetaminophen measurement (mass/volume) < ug/mL 10-30 Serum or plasma ethanol measurement (mass/volume) - 10/07/18 22:45 Serum or plasma ethanol measurement (mass/volume) < mg/dL <10 Blood lactic acid measurement (moles/volume) - 10/07/18 23:40 Blood lactic acid measurement (moles/volume) 1.41 mmol/L 0.50-2.00 Influenza virus A and B antigen detection - 10/07/18 23:40 FLU RESULT NEGATIVE FOR INFLUENZA A AND B ANTIGENS BY IA [facility] Bacterial blood culture - 10/07/18 23:40 QUANTITY OF GROWTH . [facility] Bacterial blood culture SEE [facility] Bacterial blood culture - 10/08/18 00:08 Bacterial blood culture [facility] Urine drug screening test - 10/08/18 00:52 Urine phencyclidine detection by screening method NEGATIVE NEGATIVE Urine benzodiazepines detection by screening method NEGATIVE NEGATIVE Urine cocaine detection NEGATIVE NEGATIVE Urine amphetamines detection by screening method NEGATIVE NEGATIVE Urine methamphetamine detection by screening method NEGATIVE NEGATIVE Urine cannabinoids detection by screening method NEGATIVE NEGATIVE Urine opiates detection by screening method NEGATIVE NEGATIVE Urine barbiturates detection NEGATIVE NEGATIVE Screening urine tricyclic antidepressants detection NEGATIVE NEGATIVE Urine methadone detection by screening method NEGATIVE NEGATIVE Urine oxycodone detection NEGATIVE NEGATIVE Urine propoxyphene detection NEGATIVE NEGATIVE Complete urinalysis with reflex to culture - 01/09/19 00:52 Urine color determination YELLOW NRG Urine clarity determination CLEAR NRG Urine pH measurement by test strip 6 5-9 Specific gravity of urine by test strip 1.020 1.016- 1.022 Urine protein assay by test strip, semi-quantitative 1+ NEGATIVE Urine glucose detection by automated test strip 4+ NEGATIVE Erythrocytes detection in urine sediment by light microscopy NEGATIVE NEGATIVE Urine ketones detection by automated test strip NEGATIVE NEGATIVE Urine nitrite detection by test strip NEGATIVE NEGATIVE Urine total bilirubin detection by test strip NEGATIVE NEGATIVE Urine urobilinogen measurement by automated test strip (mass/volume) 1 mg/dL NORMAL Urine leukocyte esterase detection by dipstick NEGATIVE NEGATIVE Automated urine sediment erythrocyte count by microscopy (number/high power field) NONE NRG Automated urine sediment leukocyte count by microscopy (number/high power field ) NONE NRG Bacteria detection in urine sediment by light microscopy NEGATIVE NRG Squamous epithelial cells detection in urine sediment by light microscopy RARE NRG Crystals detection in urine sediment by light microscopy NONE NRG Casts detection in urine sediment by light microscopy NONE NRG Mucus detection in urine sediment by light microscopy NEGATIVE NRG Complete urinalysis with reflex to culture NO NRG Hemoglobin A1c - 10/08/18 01:18 Blood hemoglobin A1C measurement (mass/volume) 6.2 % 4.0- 5.6 MEAN BLOOD GLUCOSE 131 % <=126 Encounters ACCT No. Visit Date/Time Discharge Status Pt. Type Provider Facility Loc./Unit Complaint [id number] 05/09/2015 10:21:00 05/09/2015 10:21:00 DIS Outpatient JEAN CARDENAS [facility] RAD [id number] 04/18/2015 12:58:00 04/18/2015 12:58:00 DIS Outpatient ABI PORRAS [facility] RAD [id number] 09/20/2014 15:28:00 09/20/2014 16:16:00 DIS Emergency LINDSEY SPARROW [facility] EMR [id number] 09/15/2014 08:25:00 09/15/2014 13:05:00 DIS Outpatient NEEMA ALFARO [facility] OPS [id number] 12/09/2013 14:17:00 12/09/2013 23:59:59 CLS Outpatient SINGER NELSON, [place] Ledesma [id number] 07/22/2013 09:42:00 07/22/2013 23:59:59 CLS Outpatient LAURA CORRALES DO [id number] 07/09/2013 11:32:00 07/09/2013 23:59:59 CLS Outpatient LAURA CORRALES DO [id number] 07/01/2013 08:46:00 07/01/2013 23:59:59 CLS Outpatient LAURA CORRALES DO [id number] 03/07/2017 12:56:01 03/07/2017 12:56:01 DIS Unknown [id number] 10/07/2018 22:26:00 10/08/2018 01:42:00 DIS Emergency DELMER LANG DO [facility] ER LOW BLOOD SUGAR [id number] 05/26/2018 01:49:00 05/26/2018 02:13:00 DIS Emergency LILIBETH VEGAS MD [facility] ER LEFT LEG PAIN, POSS INFECTION [id number] 05/17/2018 02:51:00 05/17/2018 04:35:00 DIS Emergency LILIBETH VEGAS MD [facility] ER LEFT FOOT INJURY-SWELLING [id number] 12/11/2017 15:40:00 12/11/2017 16:43:00 DIS Emergency LILIBETH VEGAS MD [facility] ER WOUND CHECK [id number] 12/09/2017 05:01:00 12/09/2017 05:56:00 DIS Emergency ENDY CORDON MD [facility] ER POSS SPIDER BITE [id number] 12/21/2015 15:00:00 12/21/2015 19:00:00 [id number] 12/19/2015 14:15:00 12/19/2015 18:15:00 DIS ANABEL GREGORY [id number] 11/28/2015 15:15:00 11/28/2015 19:15:00 DIS ANABEL GREGORY [id number] 10/27/2015 08:30:00 10/27/2015 12:30:00 [id number] 09/08/2015 10:00:00 09/08/2015 14:00:00 [facility] [id number] 01/02/2016 14:45:00 HEAVEN HORAN
[2018-12-20] MEDS ORDERED: GABA-488 (00:33)
[2018-12-20] MEDS ORDERED: RX-TRIMETH/SULFA. 160-800 MG (BACTRIM DS) TAB PPK#2 PO STA (01:16)
[2018-12-20] MEDS ORDERED: SULF1TAB35 PO (01:19)
--- NOTE | 2018-12-20 01:19 | ED Headache ---
General Chief Complaint: Head/Cervical Problems Stated Complaint: HEAD PAIN Nursing Triage Note: HEADACHE X2 WEEKS. NO INJURY Nursing Sepsis Screen: No Definite Risk Source: patient, old records History of Present Illness Date Seen by Provider: Dec 20, 2018 Time Seen by Provider: 00:25 Initial Comments PT ARRIVES VIA POV C/O HEAD PAIN HAS CHRONIC HEADACHES FOR YEARS, ALSO HAS CHRONIC BACK AND NECK PAIN--SEES PAIN MANAGEMENT--DR. TRIPATHI IN HAD ROUTINE APPOINTMENT YESTERDAY--DID NOT MENTION THIS PROBLEM TO HIM PT STATES HE HAS HAD A SORE SPOT ON THE TOP OF HIS HEAD FOR 2 WEEKS. NO KNOWN INJURY NO DRAINAGE NO FEVER NO VISION CHANGES NO DIZZINESS PT TAKES OXYCODONE AND TRAMADOL EVERY DAY FOR CHRONIC PAIN COMPLAINTS STATES HE HAS TAKEN 1 OXYCODONE TODAY AND NO TRAMADOL TODAY, YET C/O PAIN TO HIS HEAD IS "SEVERE" SYMPTOMS ARE NO DIFFERENT TODAY IN ANY WAY HAS NOT SOUGHT CARE UNTIL TODAY PCP: NONE--DID HAVE ONE IN [place], [place] PAIN MANAGEMENT: DR. TRIPATHI IN [place] PT IS FROM [place], [place], AND HAS BEEN STAYING WITH HIS GIRLFRIEND FOR THE LAST FEW MONTHS, HE IS ESSENTIALLY "HOMELESS" Allergies and Home Medications Allergies Coded Allergies: No Known Drug Allergies (Unverified , 12/09/17) Home Medications Sulfamethoxazole/Trimethoprim 1 Each Tablet, 1 EACH PO BID Prescribed by: DELMER LANG on 12/20/18 0119 Patient Home Medication List Home Medication List Reviewed: Yes Review of Systems Review of Systems Constitutional: no symptoms reported Eyes: No Symptoms Reported Ears, Nose, Mouth, Throat: no symptoms reported Respiratory: no symptoms reported Cardiovascular: no symptoms reported Gastrointestinal: no symptoms reported Genitourinary: no symptoms reported Musculoskeletal: see HPI Skin: see HPI Psychiatric/Neurological: See HPI Past Kizimpx-Jmogpe-Ilffyf Hx Patient Social History Alcohol Use: Denies Use Recreational Drug Use: Yes (THC) Drug of Choice: CANNIBUS Smoking Status: Current Everyday Smoker (1 PPD) Type Used: Cigarettes 2nd Hand Smoke Exposure: Yes Recent Foreign Travel: No Contact w/Someone Who Travel: No Recent Infectious Disease Expo: No Recent Hopitalizations: No Immunizations Up To Date Tetanus Booster (TDap): Less than 5yrs (STATES 2017) Seasonal Allergies Seasonal Allergies: No Past Medical History Surgeries: Yes (HERNIA REPAIR; ROTATOR CUFF REPAIR; I&D OF ABSCESSES) Abdominal, Appendectomy, Orthopedic Respiratory: No Cardiac: Yes High Cholesterol Neurological: Yes Headaches /Migraines Genitourinary: No Gastrointestinal: Yes (HEPATITIS C--NO TREATMENT) Musculoskeletal: Yes (CHRONIC NECK AND BACK PAIN; S/P ROTATOR CUFF REPAIR; ON DISABILITY FOR CHRONIC PAIN COMPLAINTS) Degenerate Disk Disease, Arthritis, Chronic Back Pain Endocrine: Yes (HYPERGLYCEMIA--HAS NOT BEEN DX WITH DIABETES, HAS NOT FOLLOWED UP WITH PCP FOR FURTHER EVALUATION. ) HEENT: No Cancer: No Psychosocial: No Integumentary: Yes (I&D OF ABSCESSES) Blood Disorders: No Family Medical History No Pertinent Family Hx Physical Exam Vital Signs Vital Signs - First Documented 12/20/18 00:24 Temp 98.8 Pulse 85 Resp 18 B/P (MAP) 129/85 (100) Pulse Ox 95 O2 Delivery Room Air Capillary Refill : Less Than 3 Seconds Height, Weight, BMI Height: 5'5.00" Weight: 125lbs. 0oz. 56.635593lt; 21.09 BMI Method:Stated General Appearance: WD/WN, no apparent distress, other (REEKS OF CIGARETTES) HEENT: PERRL/EOMI, normal ENT inspection, TMs normal, pharynx normal Neck: non-tender, normal inspection Cardiovascular: regular rate, rhythm, no murmur Respiratory: normal breath sounds Back: no CVA tenderness Extremities: normal inspection Psychiatric: alert, oriented x 3 Crainal Nerves: normal hearing, normal speech, PERRL Coordination/Gait: normal gait Motor/Sensory: no motor deficit Skin: normal color, warm/dry, other (HAS SCABBED WOUND TO RIGHT TOP OF HEAD-- SCAB IN 1/2 CM IN DIAMETER, WITH 1 CM SURROUNDING SLIGHT ERYTHEMA, SLIGHT SWELLING, MODERATE TENDERNESS. NO FLUCTUANCE. NO DRAINAGE. ) Progress/Results/Core Measures Results/Orders My Orders Orders - DELMER LANG DO Ct Head Wo (12/20/18 00:31) Rx-Trimeth/Sulfameth Ds Tab (Rx-Bactrim/ (12/20/18 01:16) Vital Signs/I&O 12/20/18 12/20/18 00:24 01:24 Temp 98.8 98.8 Pulse 85 79 Resp 18 18 B/P (MAP) 129/85 (100) 132/82 (99) Pulse Ox 95 99 O2 Delivery Room Air Room Air Blood Pressure Mean: 100 Progress Progress Note : Progress Note PT SLEPT VERY SOUNDLY ON RETURN FROM CT. UNEVENTFUL ER STAY Diagnostic Imaging Comments CT HEAD--NO ACUTE PROCESS, PER [facility] VIA FAX @ [phone] Reviewed: Reviewed by Me (HAS SCABBED WOUND TO RIGHT TOP OF HEAD--SCAB IN 1/ 2 CM IN DIAMETER, WITH 1 CM SURROUNDING SLIGHT ERYTHEMA, SLIGHT SWELLING, MODERATE TENDERNESS. NO FLUCTUANCE. NO DRAINAGE. ) Departure Impression Primary Impression: CHRONIC HEADACHE COMPLAINT Additional Impression: INFECTED SCALP WOUND Disposition: HOME, SELF-CARE Condition: Stable Departure-Patient Inst. Referrals: [facility] Patient Instructions: Cellulitis (Skin Infection), Adult (DC), Headache, Adult (DC), Wound Care (DC) Add. Discharge Instructions: CLEAN WOUND TWICE A DAY WITH ANTIBACTERIAL SOAP AND WATER, APPLY ANTIBIOTIC OINTMENT TWICE A DAY TAKE YOUR REGULAR PAIN MEDICATIONS PRESCRIBED FOLLOW UP WITH [facility] NEXT WEEK FOR FURTHER CARE All discharge instructions reviewed with patient and/or family. Voiced understanding. Scripts Sulfamethoxazole/Trimethoprim (Bactrim Ds Tablet) 1 Each Tablet 1 EACH PO BID, #20 TAB Prov: DELMER LANG DO 12/20/18 DELMER LANG DO Dec 20, 2018 01:19
[2018-12-20 01:24] VITALS: BP 132/82
--- NOTE | 2018-12-20 06:33 | Diagnostic Imaging Report ---
PROCEDURE: CT head without contrast. TECHNIQUE: Multiple contiguous axial images were obtained through the brain without the use of intravenous contrast. Auto Exposure Controls were utilized during the CT exam to meet ALARA standards for radiation dose reduction. INDICATION: Headache. FINDINGS: There is no mass, shift of midline or hemorrhage to suggest an acute intracranial abnormality. The ventricles are not abnormally dilated and stable in size when compared to the prior exam of 10/07/2018. The cortical atrophy seen on the previous study is again evident and no different. The bone windows show no sign of a fracture or destructive lesion. The orbits are symmetrical and within normal limits. There is mucosal thickening of the maxillary sinuses bilaterally. This has developed since the prior study. The sinuses are otherwise generally clear. IMPRESSION: 1. There is no evidence for an acute intracranial abnormality. 2. If clinical concern regarding an underlying abnormality persists, then MRI would be recommended for further study. 3. There is bilateral maxillary sinusitis. Dictated by: Dictated on workstation # [id number]
== END 2018-12-20 01:24 | disposition home or self-care (01) ==
LOC: EDUNIT# 00:17 → ER 00:20
DX: S01.00XA Unspecified open wound of scalp, initial encounter (principal); L08.9 Local infection of the skin and subcutaneous tissue, unspecified; R51 Headache; G89.29 Other chronic pain; E78.00 Pure hypercholesterolemia, unspecified; G43.909 Migraine, unspecified, not intractable, without status migrainosus; F12.10 Cannabis abuse, uncomplicated; F17.210 Nicotine dependence, cigarettes, uncomplicated; Z98.890 Other specified postprocedural states; Z90.49 Acquired absence of other specified parts of digestive tract; Z86.69 Personal history of other diseases of the nervous system and sense organs; Z59.0 Homelessness; X58.XXXA Exposure to other specified factors, initial encounter
CPT/HCPCS: 70450

== ENCOUNTER 2019-10-16 00:18 | Emergency (ER) | payer MEDICAID ==
[~2019-10-16] VITALS: Ht 167 cm; Wt 68.2 kg
[~2019-10-16 00:18] MED LIST changes: +GABA-488; +SULF1TAB35 PO; -TRAM50TA2; +TRM50T
[2019-10-16] MEDS ORDERED: NS IV 1000 ML 1,000 ML IV SCH (00:39)
[2019-10-16] MEDS ORDERED: inSUlin (REGULAR) HUMAN 1 UNIT/0.01 ML (CHARGE PER UNIT) SC ONE (00:45)
--- NOTE | 2019-10-16 00:46 | ED General ---
General Chief Complaint: Glucose Problems Stated Complaint: RT FOOT PAIN,HIGH BLOOD SUGAR 343 Source of Information: Patient, Other (girlfriend) Exam Limitations: No Limitations History of Present Illness Date Seen by Provider: Oct 16, 2019 Time Seen by Provider: 00:34 Initial Comments Patient presents to ER by private conveyance from home with his girlfriend and significant other and chief complaint of having some pain and infection in the right foot smallest two toes. He's also noticed for the past few days his blood sugars been elevated as high as almost 400 and as low as 190. He does not take insulin. He takes metformin thousand milligrams twice a day, atorvastatin and gabapentin. He sees Dr. [facility]. He's been putting Neosporin on his toes with no improvement. He's not having any fevers chills nausea vomiting diarrhea or dysuria but he is having urinary frequency. 2 weeks ago he thinks he passed a kidney stone and completed a course of antibiotics for UTI. Allergies and Home Medications Allergies Coded Allergies: No Known Drug Allergies (Unverified , 12/09/17) Home Medications Sulfamethoxazole/Trimethoprim 1 Each Tablet, 1 EACH PO BID Prescribed by: DELMER LANG on 12/20/18 0119 Patient Home Medication List Home Medication List Reviewed: Yes Review of Systems Review of Systems Constitutional: No chills, No fever, No malaise EENTM: No ear discharge, No ear pain Respiratory: No cough, No short of breath Cardiovascular: No chest pain, No edema Gastrointestinal: No abdominal pain, No nausea, No vomiting Genitourinary: No discharge, No dysuria; frequency; No hematuria Musculoskeletal: No back pain, No joint pain Skin: No pruritus, No rash Psychiatric/Neurological: Denies Headache, Denies Numbness Past Fjxacrp-Gnljfp-Vpdhdd Hx Patient Social History Alcohol Use: Denies Use Recreational Drug Use: Yes Drug of Choice: CANNIBUS Smoking Status: Current Everyday Smoker Type Used: Cigarettes 2nd Hand Smoke Exposure: Yes Recent Foreign Travel: No Contact w/Someone Who Travel: No Recent Hopitalizations: No Immunizations Up To Date Tetanus Booster (TDap): Less than 5yrs Seasonal Allergies Seasonal Allergies: No Past Medical History Surgeries: Yes (HERNIA REPAIR; ROTATOR CUFF REPAIR; I&D OF ABSCESSES) Abdominal, Appendectomy, Orthopedic Respiratory: No Cardiac: Yes High Cholesterol Neurological: Yes Headaches /Migraines Genitourinary: No Gastrointestinal: Yes (HEPATITIS C--NO TREATMENT) Musculoskeletal: Yes Degenerate Disk Disease, Arthritis, Chronic Back Pain Endocrine: Yes HEENT: No Cancer: No Psychosocial: No Integumentary: Yes (I&D OF ABSCESSES) Blood Disorders: No Family Medical History No Pertinent Family Hx Physical Exam Vital Signs Vital Signs - First Documented 10/16/19 00:40 Temp 37.0 Pulse 83 Resp 18 B/P (MAP) 147/99 (115) Pulse Ox 99 O2 Delivery Room Air Capillary Refill : Height, Weight, BMI Height: 5'5.00" Weight: 125lbs. 0oz. 56.472592os; 21.09 BMI Method:Stated General Appearance: No Apparent Distress, Thin Eyes: Bilateral Eye Normal Inspection, Bilateral Eye PERRL, Bilateral Eye EOMI HEENT: PERRL/EOMI, Pharynx Normal; No Moist Mucous Membranes Neck: Full Range of Motion, Normal Inspection Respiratory: No Accessory Muscle Use, No Respiratory Distress Cardiovascular: Regular Rate, Rhythm, No Edema, Normal Peripheral Pulses Gastrointestinal: Normal Bowel Sounds, Non Tender, Soft Extremity: Normal Capillary Refill, Normal Inspection, No Pedal Edema Neurologic/Psychiatric: Alert, Oriented x3, No Motor/Sensory Deficits Skin: Other (superficial maceration of the skin between the toes of his right foot consistent with tinea pedis. No deep ulceration or tunneling noted.) Progress/Results/Core Measures Suspected Sepsis SIRS Temperature: Pulse: Respiratory Rate: Laboratory Tests 10/16/19 00:46: White Blood Count 10.5 Blood Pressure / Mean: Laboratory Tests 10/16/19 00:46: Creatinine 0.77, Platelet Count 93L, Total Bilirubin 0.7 Results/Orders Lab Results Laboratory Tests Test 10/16/19 00:37 10/16/19 00:38 10/16/19 00:46 Range/Units Glucometer 287 H 70-110 MG/DL Urine Color YELLOW Urine Clarity CLEAR Urine pH 6.0 5-9 Urine Specific Auberry 1.025 H 1.016-1.022 Urine Protein NEGATIVE NEGATIVE Urine Glucose (UA) 3+ H NEGATIVE Urine Ketones NEGATIVE NEGATIVE Urine Nitrite NEGATIVE NEGATIVE Urine Bilirubin NEGATIVE NEGATIVE Urine Urobilinogen 0.2 < = 1.0 MG/DL Urine Leukocyte Esterase NEGATIVE NEGATIVE Urine RBC (Auto) NEGATIVE NEGATIVE Urine RBC NONE /HPF Urine WBC NONE /HPF Urine Squamous Epithelial Cells NONE /HPF Urine Crystals NONE /LPF Urine Bacteria TRACE /HPF Urine Casts NONE /LPF Urine Mucus NEGATIVE /LPF Urine Culture Indicated NO Urine Opiates Screen NEGATIVE NEGATIVE Urine Oxycodone Screen NEGATIVE NEGATIVE Urine Methadone Screen NEGATIVE NEGATIVE Urine Propoxyphene Screen NEGATIVE NEGATIVE Urine Barbiturates Screen NEGATIVE NEGATIVE Ur Tricyclic Antidepressants Screen NEGATIVE NEGATIVE Urine Phencyclidine Screen NEGATIVE NEGATIVE Urine Amphetamines Screen POSITIVE H NEGATIVE Urine Methamphetamines Screen POSITIVE H NEGATIVE Urine Benzodiazepines Screen NEGATIVE NEGATIVE Urine Cocaine Screen NEGATIVE NEGATIVE Urine Cannabinoids Screen NEGATIVE NEGATIVE White Blood Count 10.5 4.3-11.0 10^3/uL Red Blood Count 4.87 4.35-5.85 10^6/uL Hemoglobin 15.6 13.3-17.7 G/DL Hematocrit 44 40-54 % Mean Corpuscular Volume 90 80-99 FL Mean Corpuscular Hemoglobin 32 25-34 PG Mean Corpuscular Hemoglobin Concent 36 32-36 G/DL Red Cell Distribution Width 13.4 10.0-14.5 % Platelet Count 93 L 130-400 10^3/uL Mean Platelet Volume 12.4 H 7.4-10.4 FL Neutrophils (%) (Auto) 53 42-75 % Lymphocytes (%) (Auto) 34 12-44 % Monocytes (%) (Auto) 10 0-12 % Eosinophils (%) (Auto) 3 0-10 % Basophils (%) (Auto) 1 0-10 % Neutrophils # (Auto) 5.5 1.8-7.8 X 10^3 Lymphocytes # (Auto) 3.6 1.0-4.0 X 10^3 Monocytes # (Auto) 1.1 H 0.0-1.0 X 10^3 Eosinophils # (Auto) 0.3 0.0-0.3 10^3/uL Basophils # (Auto) 0.1 0.0-0.1 10^3/uL Sodium Level 136 135-145 MMOL/L Potassium Level 4.4 3.6-5.0 MMOL/L Chloride Level 101 98-107 MMOL/L Carbon Dioxide Level 23 21-32 MMOL/L Anion Gap 12 5-14 MMOL/L Blood Urea Nitrogen 11 7-18 MG/DL Creatinine 0.77 0.60-1.30 MG/DL Estimat Glomerular Filtration Rate > 60 BUN/Creatinine Ratio 14 Glucose Level 331 H 70-105 MG/DL Calcium Level 9.1 8.5-10.1 MG/DL Corrected Calcium 9.2 8.5-10.1 MG/DL Total Bilirubin 0.7 0.1-1.0 MG/DL Aspartate Amino Transf (AST/SGOT) 81 H 5-34 U/L Alanine Aminotransferase (ALT/SGPT) 56 H 0-55 U/L Alkaline Phosphatase 435 H 40-136 U/L Total Protein 7.1 6.4-8.2 GM/DL Albumin 3.9 3.2-4.5 GM/DL My Orders Orders - LILIBETH VEGAS Ua Culture If Indicated (10/16/19 00:39) Drug Screen Stat (Urine) (10/16/19 00:39) Cbc With Automated Diff (10/16/19 00:39) Comprehensive Metabolic Panel (10/16/19 00:39) Accucheck Stat ONCE (10/16/19 00:39) Ed Iv/Invasive Line Start (10/16/19 00:39) Ns Iv 1000 Ml (Sodium Chloride 0.9%) (10/16/19 00:39) Insulin (Regular) Human (Humulin R (Per (10/16/19 00:45) Accucheck Stat ONCE (10/16/19 01:32) Medications Given in ED Current Medications Medications Dose Ordered Sig/Dorothea Route Start Time Stop Time Status Last Admin Dose Admin Insulin Human Regular 5 unit ONCE ONCE SC 10/16/19 00:45 10/16/19 00:46 DC 10/16/19 01:01 5 UNIT Vital Signs/I&O 10/16/19 00:40 Temp 37.0 Pulse 83 Resp 18 B/P (MAP) 147/99 (115) Pulse Ox 99 O2 Delivery Room Air Capillary Refill : Progress Note #1: Time: 00:44 Progress Note Plan to check a urine and some basic labs to make sure her kidney function is okay and is no evidence of infection. Plan to put him on antifungal topically and follow-up with his primary care doctor for reexamination in about a week. We will give him a liter fluids since she's had high blood sugars and urinary frequency to help with his mild dehydration on clinical exam. We'll give him 5 units of regular insulin subcutaneous for his blood sugar of 287 at bedside. Progress Note #2: Time: 02:11 Progress Note Repeat blood sugar 269, not much different from the floor. We'll give him 10 units of Levemir and have him follow up this morning or early next week with primary care to discuss more aggressive management of his blood sugars. He states that the last use of methamphetamines was close to a week ago. He says he was having problems with his blood sugar even prior to that though. Departure Impression Primary Impression: Hyperglycemia Disposition: 01 HOME, SELF-CARE Condition: Stable Departure-Patient Inst. Decision time for Depature: 02:13 Referrals: ROBERT BIRCH MD (PCP) Primary Care Physician [facility] (Family) Primary Care Physician Patient Instructions: Hyperglycemia, Adult Add. Discharge Instructions: We gave you 10 units of Levemir which should not significantly drop your blood sugar but should help keep it from going high again for about a day. Try to get follow-up with your primary care doctor today or early next week to discuss more aggressive management of your blood sugar. Continue to drink plenty of fluids and avoid carbohydrates, sugar, pasta, flour, potatoes, rice etc. All discharge instructions reviewed with patient and/or family. Voiced understanding. Copy Copies To 1: LAURA CORRALES TITUS J Oct 16, 2019 00:46
[2019-10-16 00:47] LABS: BILIRUBIN,URINE NEGATIVE (NEGATIVE); CLARITY,URINE CLEAR; COLOR,URINE YELLOW; GLUCOSE, URINE (UA) 3+ (NEGATIVE); KETONES,URINE NEGATIVE (NEGATIVE); LEUKOCYTE ESTERASE ,URINE NEGATIVE (NEGATIVE); NITRITE,URINE NEGATIVE (NEGATIVE); PROTEIN,URINE NEGATIVE (NEGATIVE)
[2019-10-16 00:56] LABS: BASOPHILS # (AUTO) 0.1 10^3/uL (0.0-0.1); BASOPHILS % (AUTO) 1 % (0-10); EOSINOPHILS # (AUTO) 0.3 10^3/uL (0.0-0.3); EOSINOPHILS % (AUTO) 3 % (0-10); HEMATOCRIT 44 % (40-54); HEMOGLOBIN 15.6 G/DL (13.3-17.7); LYMPHOCYTES # (AUTO) 3.6 X 10^3 (1.0-4.0); LYMPHOCYTES % (AUTO) 34 % (12-44); MEAN CORPUSCULAR HEMOGLOBIN 32 PG (25-34); MEAN CORPUSCULAR HGB CONC 36 G/DL (32-36); MEAN CORPUSCULAR VOLUME 90 FL (80-99); MEAN PLATELET VOLUME 12.4 FL (7.4-10.4); MONOCYTES # (AUTO) 1.1 X 10^3 (0.0-1.0); MONOCYTES % (AUTO) 10 % (0-12); NEUTROPHILS # (AUTO) 5.5 X 10^3 (1.8-7.8); NEUTROPHILS % (AUTO) 53 % (42-75); PLATELET COUNT 93 10^3/uL (130-400); RED CELL DISTRIBUTION WIDTH 13.4 % (10.0-14.5); WHITE BLOOD COUNT 10.5 10^3/uL (4.3-11.0)
[2019-10-16 01:06] LABS: AMPHETAMINE SCREEN, URINE POSITIVE (NEGATIVE); BACTERIA,URINE TRACE /HPF; BARBITURATE SCREEN URINE NEGATIVE (NEGATIVE); BENZODIAZEPINES SCREEN URINE NEGATIVE (NEGATIVE); CANNABINOID SCREEN, URINE NEGATIVE (NEGATIVE); COCAINE SCREEN URINE NEGATIVE (NEGATIVE); METHADONE STAT NEGATIVE (NEGATIVE); METHAMPHETAMINE SCREEN URINE S POSITIVE (NEGATIVE); OPIATE SCREEN URINE NEGATIVE (NEGATIVE); OXYCODONE STAT NEGATIVE (NEGATIVE); PROPOXYPHENE STAT NEGATIVE (NEGATIVE); TRICYCLIC ANTIDEPRESSANTS SCRE NEGATIVE (NEGATIVE)
[2019-10-16 01:17] LABS: ALANINE AMINOTRANSFERASE 56 U/L (0-55); ALBUMIN 3.9 GM/DL (3.2-4.5); ALKALINE PHOSPHATASE 435 U/L (40-136); BILIRUBIN,TOTAL 0.7 MG/DL (0.1-1.0); BUN/CREATININE RATIO 14; CALCIUM 9.1 MG/DL (8.5-10.1); CARBON DIOXIDE 23 MMOL/L (21-32); CHLORIDE 101 MMOL/L (98-107); CREATININE SERUM 0.77 MG/DL (0.60-1.30); GFR ESTIMATED > 60; GLUCOSE 331 MG/DL (70-105); POTASSIUM 4.4 MMOL/L (3.6-5.0); SODIUM 136 MMOL/L (135-145); TOTAL PROTEIN 7.1 GM/DL (6.4-8.2)
[2019-10-16 02:39] VITALS: BP 145/90
== END 2019-10-16 02:41 | disposition home or self-care (01) ==
LOC: EDUNIT# 00:18 → ER 00:21
DX: R73.9 Hyperglycemia, unspecified (principal); E78.00 Pure hypercholesterolemia, unspecified; G43.909 Migraine, unspecified, not intractable, without status migrainosus; B19.20 Unspecified viral hepatitis C without hepatic coma; F17.210 Nicotine dependence, cigarettes, uncomplicated; Z79.84 Long term (current) use of oral hypoglycemic drugs; Z90.49 Acquired absence of other specified parts of digestive tract
CPT/HCPCS: 36415; 80053; 80306; 81000; 82962; 85025; 96360; 96372

== ENCOUNTER 2020-12-15 11:21 | Emergency (ER) | payer MEDICAID ==
[~2020-12-15] VITALS: Ht 165 cm; Wt 62.5 kg
--- NOTE | 2020-12-15 11:36 | ED Fall/Injury ---
General Stated Complaint: FALL/LEFT SHOULDER INJURY History of Present Illness Date Seen by Provider: Dec 15, 2020 Time Seen by Provider: 11:33 Initial Comments 60-year-old male presents with left shoulder pain, left lateral neck pain and left elbow pain. Patient reports the pain happened after a fall 3 weeks ago. Patient reports he is here because his doctor told him to come in. Patient has not been seen for this. He has painful range of motion his left shoulder but does not appear to be limited. Patient reports that he fell on some steps. Patient denies any other injuries. Allergies and Home Medications Allergies Coded Allergies: No Known Drug Allergies (Unverified , 12/09/17) Home Medications Sulfamethoxazole/Trimethoprim 1 Each Tablet, 1 EACH PO BID Prescribed by: DELMER LANG on 12/20/18 0119 Patient Home Medication List Home Medication List Reviewed: Yes Review of Systems Review of Systems Constitutional: No chills, No fever Eyes: No Symptoms Reported Ears, Nose, Mouth, Throat: no symptoms reported Respiratory: no symptoms reported Cardiovascular: no symptoms reported Gastrointestinal: no symptoms reported Genitourinary: no symptoms reported Musculoskeletal: see HPI Skin: see HPI Psychiatric/Neurological: No Symptoms Reported Past [id number]-Pkaohy-Agktqz Hx Past Med/Social Hx: Reviewed Nursing Past Med/Soc Hx Patient Social History Drug of Choice: CANNIBUS Type Used: Cigarettes 2nd Hand Smoke Exposure: Yes Recent Hopitalizations: No Immunizations Up To Date Tetanus Booster (TDap): Less than 5yrs Seasonal Allergies Seasonal Allergies: No Past Medical History Surgeries: Yes (HERNIA REPAIR; ROTATOR CUFF REPAIR; I&D OF ABSCESSES) Abdominal, Appendectomy, Orthopedic Respiratory: No Cardiac: Yes High Cholesterol Neurological: Yes Headaches /Migraines Genitourinary: No Gastrointestinal: Yes (HEPATITIS C--NO TREATMENT) Musculoskeletal: Yes Degenerate Disk Disease, Arthritis, Chronic Back Pain Endocrine: Yes HEENT: No Cancer: No Psychosocial: No Integumentary: Yes (I&D OF ABSCESSES) Blood Disorders: No Family Medical History No Pertinent Family Hx Physical Exam Vital Signs Vital Signs - First Documented 12/15/20 11:35 Temp 37.4 Pulse 84 Resp 18 B/P (MAP) 111/80 (90) Pulse Ox 93 O2 Delivery Room Air Capillary Refill : Height, Weight, BMI Height: 5'5.00" Weight: 125lbs. 0oz. 56.880330db; 24.00 BMI Method:Stated General Appearance: no apparent distress HEENT: PERRL/EOMI Neck: tender lateral (Mild tenderness left lateral neck); No tender midline Cardiovascular: normal peripheral pulses, regular rate, rhythm Respiratory: lungs clear, normal breath sounds Peripheral Pulses: 2+ Radial Pulses (R), 2+ Radial Pulses (L) Gastrointestinal: soft Back: no vertebral tenderness Extremities: other (Tenderness left shoulder, generalized no focal area, no obvious deformity or injury to either shoulder or elbow.) Neurologic/Psychiatric: no motor/sensory deficits, normal mood/affect Skin: normal color, warm/dry [place] Coma Score Best Eye Response: (4) Open Spontaneously Best Verbal Response: (5) Oriented Best Motor Response: (6) Obeys Commands Progress/Results/Core Measures Results/Orders My Orders Orders - DEBBIE LOPEZ DO Shoulder, Left, 3 Views (12/15/20 11:42) Elbow, Left, 3 Views (12/15/20 11:42) Vital Signs/I&O 12/15/20 11:35 Temp 37.4 Pulse 84 Resp 18 B/P (MAP) 111/80 (90) Pulse Ox 93 O2 Delivery Room Air Progress Progress Note : Progress Note Patient with negative x-rays. Patient with no acute physical findings. Discussed with him that if he continues to have pain and difficulty with his sh oulder he needs to follow-up with orthopedic surgeon for further evaluation and possible further imaging versus rehab. Patient stable. I will discharge him with anti-inflammatory and a couple muscle relaxants he should follow-up with a primary care provider with any further pain management needs Diagnostic Imaging Diagonstic Imaging: Xray Comments [facility] [place] NAME: BENJAMIN CRISTINA [facility] REC#: [id number] PT STATUS: REG ER : 1960 PHYSICIAN: DEBBIE LOPEZ DO ADMIT DATE: 12/15/20/ER Draft Date of Exam:12/15/20 SHOULDER, LEFT, 3 VIEWS INDICATION: Left shoulder pain. TIME OF EXAM: 12:01 PM. FINDINGS: Three views of the left shoulder were obtained. The glenohumeral and acromioclavicular alignment is normal. The acromiohumeral space is normal. No fracture or dislocation is seen. IMPRESSION: No acute bony abnormality is detected. [facility] [place] NAME: BENJAMIN CRISTINA [facility] REC#: [id number] PT STATUS: REG ER : 1960 PHYSICIAN: DEBBIE LOPEZ DO ADMIT DATE: 12/15/20/ER Draft Date of Exam:12/15/20 ELBOW, LEFT, 3 VIEWS INDICATION: Left elbow pain. TIME OF EXAM: 11:58 a.m. TECHNIQUE: Three views of the left elbow were obtained. FINDINGS: Alignment is normal. Joint spaces are well maintained. No fracture, dislocation, or effusion is detected. IMPRESSION: No acute bony abnormality is detected. Dictated on workstation # [id number] Dict: 12/15/20 1216 Trans: 12/15/20 1219 [id number] Reviewed: Reviewed by Me, Reviewed/Discussed Departure Impression Primary Impression: Fall Qualified Codes: W19.XXXA - Unspecified fall, initial encounter Additional Impressions: Pain in left shoulder Qualified Codes: M25.512 - Pain in left shoulder Pain of left upper arm Disposition: HOME, SELF-CARE Condition: Stable Departure-Patient Inst. Referrals: ROBERT BIRCH MD (PCP) Primary Care Physician [facility] (Family) Primary Care Physician Patient Instructions: Shoulder Pain ED, Contusion (DC) Scripts Naproxen (Naprosyn) 500 Mg Tablet 500 MG PO BID, #30 TAB 0 Refills Prov: DEBBIE LOPEZ DO 12/15/20 Cyclobenzaprine HCl (Cyclobenzaprine HCl) 10 Mg Tablet 10 MG PO Q8H PRN for SPASMS, #10 TAB 0 Refills Prov: DEBBIE LOPEZ DO 12/15/20 DEBBIE LOPEZ DO Dec 15, 2020 11:36
--- NOTE | 2020-12-15 12:19 | Diagnostic Imaging Report ---
INDICATION: Left elbow pain. TIME OF EXAM: 11:58 a.m. TECHNIQUE: Three views of the left elbow were obtained. FINDINGS: Alignment is normal. Joint spaces are well maintained. No fracture, dislocation, or effusion is detected. IMPRESSION: No acute bony abnormality is detected. Dictated by: Dictated on workstation # [id number]
--- NOTE | 2020-12-15 12:31 | Diagnostic Imaging Report ---
INDICATION: Left shoulder pain. TIME OF EXAM: 12:01 PM. FINDINGS: Three views of the left shoulder were obtained. The glenohumeral and acromioclavicular alignment is normal. The acromiohumeral space is normal. No fracture or dislocation is seen. IMPRESSION: No acute bony abnormality is detected. Dictated by: Dictated on workstation # [id number]
[2020-12-15] MEDS ORDERED: NAPR-1071 PO (12:46)
[2020-12-15] MEDS ORDERED: CYCL10TA9 PO (12:46)
[2020-12-15 12:55] VITALS: BP 104/63
== END 2020-12-15 12:53 | disposition home or self-care (01) ==
LOC: EDUNIT# 11:21 → ER 11:24
DX: M25.512 Pain in left shoulder (principal); M79.622 Pain in left upper arm; M54.2 Cervicalgia; M25.522 Pain in left elbow; Z77.22 Contact with and (suspected) exposure to environmental tobacco smoke (acute) (chronic)
CPT/HCPCS: 73030; 73080

== ENCOUNTER 2021-09-15 13:13 | Emergency (ER) | payer MEDICAID ==
[~2021-09-15] VITALS: Ht 165 cm; Wt 51.3 kg
[~2021-09-15 13:13] MED LIST changes: +CYCL10TA25; +CYCL10TA25 PO; -CYCL10TA9; +NAPR-1071 PO; -SULF1TAB35 PO; +SULF1TAB38 PO
[2021-09-15 13:18] VITALS: BP 132/76
--- OUTSIDE RECORDS SUMMARY | 2021-09-15 13:18 | XMS REPORT | Clinical Summary ---
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 Name Role Phone PCP Unavailable Allergies Not on File Medications Not on file Active Problems Not on file Social History Date Tobacco Use Types Packs/Day Years Used Never Assessed Sex Assigned at Date Recorded Not on file Last Filed Vital Signs Not on file Plan of Treatment Health Maintenance Due Date Last Done Comments COVID-19 Vaccine (1) 1970 Hepatitis C Screening 1976 DTaP,Tdap,and Td Vaccines 1977 (1 - Tdap) MMR Vaccines-Adult 1977 Colon Cancer Screening 2008 Zoster Vaccine (1 of 2) 2008 Influenza Vaccine (#1) 2021 Pneumo-Vaccine: 65+Yrs (1 2023 of 1 - PPSV23) HIB Vaccines Aged Out No longer eligible based on patient's age to complete this topic IPV Vaccines Aged Out No longer eligible based on patient's age to complete this topic Meningococcal Vaccine Aged Out No longer eligib le based on patient's age to complete this topic Pneumo-Vaccine: Peds (0-5 Aged Out No longer el igible based on patient's age to Yrs) & At-Risk Patients complete this topic (6-64 Yrs) Rotavirus Vaccines Aged Out No longer eligible based on patient's age to complete this topic Results Not on filefrom Last 3 Months
--- OUTSIDE RECORDS SUMMARY | 2021-09-15 13:18 | XMS REPORT | Clinical Summary ---
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 If you d o not see the information that you expected, contact Release of Information in [facility] Information Management department at [phone] for further assistan ce in locating additional records.[facility] Allergies No known active allergies Medications End Date Status Medication Sig Dispensed Refills Start Date Active LYRICA 150 mg capsule 150 mg at 0 12/22/19 1 bedtime 6 daily. Active amitriptyline (ELAVIL) 10 Take 10 mg by 0 mg tablet mouth at bedtime daily. Active atorvastatin (LIPITOR) 40 Take 40 mg by 0 mg tablet mouth at bedtime daily. Active cyclobenzaprine Take 10 mg by 0 (FLEXERIL) 10 mg tablet mouth three times daily as needed for Muscle Cramps. Active tamsulosin (FLOMAX) 0.4 Take 0.4 mg 0 mg capsule by mouth daily. Do not crush, chew or open capsules. Take 30 minutes following the same meal each day. Active meloxicam (MOBIC) 7.5 mg Take 2 Tabs 60 Tab 0 0 tablet by mouth 7 daily. Active oxyCODONE/acetaminophen Take 1-2 Tabs 60 Tab 0 (PERCOCET; ENDOCET; by mouth 7 ROXICET) 5/325 mg tablet every 4 hours as needed for Pain Active Problems Problem Noted Date Rotator cuff tear 08/07/2016 Cervical disc herniation 03/02/2016 Right cervical radiculopathy 02/28/2016 Pain of right upper extremity 02/28/2016 Neck pain 01/25/2016 Myofascial muscle pain 01/25/2016 Right arm weakness 01/25/2016 Surgical History Surgery Date Site/Laterality Comments HX APPENDECTOMY HERNIA REPAIR Right Inguinal hernia COLONOSCOPY ROTATOR CUFF REPAIR 08/07/2016 Shoulder/Right Right rota tor cuff repair, biceps tenotomy, manipulation under anesthesia performed by Erik Wild MD at [facility] OR/PERIOP Medical devices from this surgery are i n the Implants section. Medical History Medical History Date Comments Essential hypertension H/O varicose veins Cataract Generalized headaches Depression Anxiety Hyperlipidemia Hepatitis C Family History Medical History Relation Name Comments Cancer Sister Diabetes Sister Heart Attack Neg Hx Stroke Neg Hx Relation Name Status Comments Brother Alive Mother Sister Social History Date Tobacco Use Types Packs/Day Years Used Current Every Day Smoker Cigarettes 0.5 Smokeless Tobacco: Never Used Comments Alcohol Use Standard Drinks/Week social drinker Yes 0 (1 standard drink = 0.6 o z pure alcohol) Alcohol Habits Answer Date Recorded How often do you have a drink containing alcohol? No t asked How many drinks containing alcohol do you have on No t asked a typical day when you are drinking? How often do you have six or more drinks on one Not asked occasion? 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 Temperature 16 01/07/2017 10:17 AM CDT Respiratory Rate 100% 01/07/2017 10:17 AM CDT Oxygen Saturation - - Inhaled Oxygen Concentration 69.4 kg (153 lb) 01/07/2017 10:17 AM CDT Weight 165.1 cm (5' 5") 01/07/2017 10:17 AM CDT Height 25.46 01/07/2017 10:17 AM CDT Body Mass Index Plan of Treatment Health Maintenance Due Date Last Done Comments HIV SCREENING 1973 DTAP/TDAP VACCINES (1 - 1976 Tdap) PHYSICAL (COMPREHENSIVE) 1976 EXAM COLORECTAL CANCER 2008 SCREENING SHINGLES RECOMBINANT 2008 VACCINE (1 of 2) INFLUENZA VACCINE 04/30/2021 Implants Device Identifier Shelf Expiration Date Model / Serial / L ot Implanted Type Area Manufactur er 04/29/2018 [id number] / N/A / [id number] System Fixation 19.1mm 4.75mm Right: Shoulder [employer] Speedbridge Swivelock Implanted: Qty: 1 on 08/07/2016 by Erik Wild MD at [facility] Results Not on filefrom Last 3 Months Insurance Type Payer Benefit Subscriber ID Effective Phone Address Plan / Dates Group Medicaid [facility] MEDICAID [facility] [id number] 2015-P [address] [address] Advance Directives 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 necessary based on Dx Care Teams Start Date End Date Freezing Room Worker Relationship Specialty 01/25/16 Jean Mckeon MD PCP - General [place] [address] [place] [address] 01/25/16 Gayla Reno MD Rehabilitati [address] [place], [place] [id number] 01/25/16 Outpatient, Radiologist 02/28/16 Princess Reynolds MD Neurology [address] [facility] [address] [place] [address] 05/03/16 Erik Wild MD Surgery, [id number] [facility] Orthopedic Med Office d [facility] [address] [place] [address]
[2021-09-15] MEDS ORDERED: fentaNYL INJ 100 MCG/2 ML AMP IVP ONE (14:00)
[2021-09-15 14:13] LABS: BASOPHILS % (AUTO) 1 % (0-10); EOSINOPHILS % (AUTO) 0 % (0-10); HEMATOCRIT 41 % (40-54); HEMOGLOBIN 14.4 g/dL (13.3-17.7); LYMPHOCYTES # (AUTO) 1.9 X 10^3 (1.0-4.0); LYMPHOCYTES % (AUTO) 25 % (12-44); MEAN CORPUSCULAR HEMOGLOBIN 32 pg (25-34); MEAN CORPUSCULAR HGB CONC 35 g/dL (32-36); MEAN CORPUSCULAR VOLUME 90 fL (80-99); MEAN PLATELET VOLUME 11.2 fL (9.0-12.2); MONOCYTES # (AUTO) 1.1 X 10^3 (0.0-1.0); MONOCYTES % (AUTO) 14 % (0-12); NEUTROPHILS # (AUTO) 4.5 X 10^3 (1.8-7.8); NEUTROPHILS % (AUTO) 60 % (42-75); PLATELET COUNT 128 10^3/uL (130-400); WHITE BLOOD COUNT 7.5 10^3/uL (4.3-11.0)
[2021-09-15 14:24] LABS: ALBUMIN 3.3 GM/DL (3.2-4.5); POTASSIUM 4.4 MMOL/L (3.6-5.0)
[2021-09-15 14:25] LABS: CALCIUM 8.6 MG/DL (8.5-10.1)
[2021-09-15 14:26] LABS: TOTAL PROTEIN 6.4 GM/DL (6.4-8.2)
[2021-09-15 14:28] LABS: BILIRUBIN,TOTAL 0.7 MG/DL (0.1-1.0)
[2021-09-15 14:30] LABS: CREATININE SERUM 0.79 MG/DL (0.60-1.30)
[2021-09-15] MEDS ORDERED: IOHEXOL 350 MG/ML 100 ML (OMNIPAQUE 350) VIAL IV ONE (14:45)
[2021-09-15] MEDS ORDERED: NS 100 ML (IVPB) BAG IV ONE (14:45)
[2021-09-15] MEDS ORDERED: HOLD METFORMIN - RECEIVED CONTRAST 20 ML VIAL IV SCH (14:45)
[2021-09-15] MEDS ORDERED: NS IV 1000 ML 1,000 ML IV SCH ×2 (16:00→18:30)
--- NOTE | 2021-09-15 16:34 | Diagnostic Imaging Report ---
PROCEDURE: CT neck soft tissue with contrast. TECHNIQUE: Multiple contiguous axial images were obtained through the neck after the administration of contrast. Auto Exposure Controls were utilized during the CT exam to meet ALARA standards for radiation dose reduction. INDICATION: Dysphagia. Facial abscess. COMPARISON: None. FINDINGS: Soft tissue edema and enhancement overlying the right mandible consistent with cellulitis. There is a linear focus of low attenuation running through this edema centrally which measures up to 0.4 cm in diameter suspicious for phlegmon versus early abscess development. There are numerous maxillary and mandibular dental caries. No large periapical lucencies are identified. No suspicious osteoblastic or lytic changes in the mandible. There is also some edema within the floor of the mouth. No suspicious enhancing mass involving the tongue base. The epiglottis and retropharyngeal space are unremarkable. No suspicious mass or enhancement within the pharynx or larynx. No cervical lymphadenopathy by criteria. The major salivary glands and thyroid are unremarkable. Emphysematous changes in the lung apices. Atherosclerotic disease appears to result in high-grade narrowing of the right internal carotid artery origin. Visualized intracranial contents and orbits are unremarkable. Mild mucosal thickening in the floor of the left maxillary sinus. Mastoids are clear. Smacdbwy-oo-dahzta spondylotic changes in the cervical spine are greatest at C4-C7. IMPRESSION: 1. Edema and enhancement in the soft tissues overlying the right mandible consistent with cellulitis. There is a linear focus of hypoattenuation running centrally through this region which could represent phlegmon versus early developing abscess. 2. Numerous dental caries. No large periapical lucencies are identified. No suspicious osteoblastic or lytic changes in the right mandible adjacent to the inflammatory change. No lymphadenopathy by criteria. 3. There appears to be some early edema within the floor of the mouth which can be seen with Rony's angina. No parapharyngeal or retropharyngeal edema. 4. Atherosclerotic disease appears to result in high-grade stenosis of the right internal carotid artery origin. This could be better evaluated with dedicated CTA. Dictated by: Dictated on workstation # [id number]
[2021-09-15] MEDS ORDERED: PIPERACILLIN SODIUM/TAZOBACTAM 4.5 GM in NS (IVPB) 100 ML IV ONE (17:15)
--- NOTE | 2021-09-15 17:23 | ED General ---
General Chief Complaint: Skin/Wound Problems Stated Complaint: INFECTION ON CHIN Nursing Triage Note: AMB TO ED WITH AREA ON CHIN. FINISHED AMOXIL ON SUN FOR INFECTION IN URINE. Source of Information: Patient, Family Exam Limitations: No Limitations (JANN RADER MD) History of Present Illness Date Seen by Provider: Sep 15, 2021 Time Seen by Provider: 13:50 Initial Comments This 61-year-old gentleman presents to the emergency room with an abscess on the anterior aspect of his right kelly. This was first noticed about 5 days ago. He had just finished amoxicillin for treatment of GBS urinary tract infection when this lesion popped up. He denies any fever but he did have chills last night. Vital signs are normal at this time. The lesion did break open and drain some pus when expressed. Today the swelling, erythema, and pain has spread to the underside of his chin/floor of the mouth. This area is very tender to palpation and has a very firm induration. Patient is a diabetic who does not check his blood sugars. Dentition is noted to be rather poor. Patient also comments that he has had a little bit of pain and difficulty with swallowing in his lower anterior neck. (JANN RADER MD) Allergies and Home Medications Allergies Coded Allergies: No Known Drug Allergies (Unverified , 12/09/17) Patient Home Medication List Home Medication List Reviewed: Yes (JANN RADER MD) Amitriptyline HCl (Amitriptyline HCl) 25 Mg Tablet, (Reported) Entered as Reported by: HOWARD CANTRELL on 12/09/1715 Cyclobenzaprine HCl (Cyclobenzaprine HCl) 10 Mg Tablet, (Reported) Entered as Reported by: HOWARD CANTRELL on 12/09/17514 Cyclobenzaprine HCl (Cyclobenzaprine HCl) 10 Mg Tablet, 10 MG PO Q8H PRN for SPASMS Prescribed by: DEBBIE LOPEZ on 12/15/20 1246 Gabapentin (Gabapentin) 300 Mg Capsule, (Reported) Entered as Reported by: HOWARD CANTRELL on 12/20/18 0033 Naproxen (Naprosyn) 500 Mg Tablet, 500 MG PO BID Prescribed by: DEBBIE LOPEZ on 12/15/20 1246 Oxycodone HCl (Oxycodone HCl) 10 Mg Tablet, (Reported) Entered as Reported by: HOWARD CANTRELL on 12/09/1715 Sulfamethoxazole/Trimethoprim (Bactrim Ds Tablet) 1 Each Tablet, 1 EACH PO BID Prescribed by: DELMER LANG on 12/20/18 0119 Tramadol HCl (Tramadol HCl) 50 Mg Tablet, (Reported) Entered as Reported by: HOWARD CANTRELL on 12/09/17514 Review of Systems Review of Systems Constitutional: see HPI EENTM: see HPI Respiratory: no symptoms reported Cardiovascular: no symptoms reported Gastrointestinal: see HPI Genitourinary: see HPI Musculoskeletal: no symptoms reported Skin: see HPI Psychiatric/Neurological: See HPI Hematologic/Lymphatic: No Symptoms Reported Immunological/Allergic: no symptoms reported (JANN RADER MD) Past Dznvucl-Zzirza-Bqqnww Hx Patient Social History Tobacco Use?: Yes Substance type: Marijuana (JANN RADER MD) Immunizations Up To Date Tetanus Booster (TDap): Less than 5yrs (JANN RADER MD) Seasonal Allergies Seasonal Allergies: No (JANN RADER MD) Past Medical History Surgeries: Yes (HERNIA REPAIR; ROTATOR CUFF REPAIR; I&D OF ABSCESSES) Abdominal, Appendectomy, Orthopedic Respiratory: No Cardiac: Yes High Cholesterol Neurological: Yes Headaches /Migraines Genitourinary: No Gastrointestinal: Yes (HEPATITIS C--NO TREATMENT) Musculoskeletal: Yes Degenerate Disk Disease, Arthritis, Chronic Back Pain Endocrine: Yes Diabetes, Non-Insulin dep HEENT: No Cancer: No Psychosocial: No Integumentary: Yes (I&D OF ABSCESSES) Blood Disorders: No (JANN RADER MD) Family Medical History No Pertinent Family Hx (JANN RADER MD) Physical Exam Vital Signs Vital Signs - First Documented 09/15/21 13:18 Temp 37.2 Pulse 79 Resp 18 B/P (MAP) 132/76 (94) Pulse Ox 98 (DELMER LANG DO) Vital Signs Capillary Refill : Less Than 3 Seconds (JANN RADER MD) Height, Weight, BMI Height: 5'5.00" Weight: 125lbs. 0oz. [id number]; 18.00 BMI Method:Stated General Appearance: WD/WN, Mild Distress, Thin HEENT: PERRL/EOMI, Pharynx Normal, Other (Erythema, tenderness, swelling, and induration of the right chin with a cratered lesion centrally that is crusted over. It does not drain with attempts to express. There is very tender, erythematous, firm induration on the underside of the chin between the mandibles. 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7 (JANN RADER MD) Results/Orders Lab Results Laboratory Tests Test 09/15/21 14:05 09/15/21 17:19 09/15/21 18:14 Range/Units White Blood Count 7.5 4.3-11.0 10^3/uL Red Blood Count 4.54 4.30-5.52 10^6/uL Hemoglobin 14.4 13.3-17.7 g/dL Hematocrit 41 40-54 % Mean Corpuscular Volume 90 80-99 fL Mean Corpuscular Hemoglobin 32 25-34 pg Mean Corpuscular Hemoglobin Concent 35 32-36 g/dL Red Cell Distribution Width 13.1 10.0-14.5 % Platelet Count 128 L 130-400 10^3/uL Mean Platelet Volume 11.2 9.0-12.2 fL Immature Granulocyte % (Auto) 1 % Neutrophils (%) (Auto) 60 42-75 % Lymphocytes (%) (Auto) 25 12-44 % Monocytes (%) (Auto) 14 H 0-12 % Eosinophils (%) (Auto) 0 0-10 % Basophils (%) (Auto) 1 0-10 % Neutrophils # (Auto) 4.5 1.8-7.8 X 10^3 Lymphocytes # (Auto) 1.9 1.0-4.0 X 10^3 Monocytes # (Auto) 1.1 H 0.0-1.0 X 10^3 Eosinophils # (Auto) 0.0 0.0-0.3 10^3/uL Basophils # (Auto) 0.0 0.0-0.1 10^3/uL Immature Granulocyte # (Auto) 0.1 0.0-0.1 10^3/uL Sodium Level 130 L 135-145 MMOL/L Potassium Level 4.4 3.6-5.0 MMOL/L Chloride Level 96 L 98-107 MMOL/L Carbon Dioxide Level 25 21-32 MMOL/L Anion Gap 9 5-14 MMOL/L Blood Urea Nitrogen 14 7-18 MG/DL Creatinine 0.79 0.60-1.30 MG/DL Estimat Glomerular Filtration Rate 99 BUN/Creatinine Ratio 18 Glucose Level 457 *H 70-105 MG/DL Calcium Level 8.6 8.5-10.1 MG/DL Corrected Calcium 9.2 8.5-10.1 MG/DL Total Bilirubin 0.7 0.1-1.0 MG/DL Aspartate Amino Transf (AST/SGOT) 92 H 5-34 U/L Alanine Aminotransferase (ALT/SGPT) 50 0-55 U/L Alkaline Phosphatase 215 H 40-136 U/L C-Reactive Protein High Sensitivity 0.50 0.00-0.50 MG/DL Total Protein 6.4 6.4-8.2 GM/DL Albumin 3.3 3.2-4.5 GM/DL Lactic Acid Level 1.16 0.50-2.00 MMOL/L Glucometer 330 H 70-110 MG/DL (RICKEY,DELMER K DO) My Orders Orders - RICKEYDELMER K DO Accucheck Stat ONCE (12/17/21 17:59) Insulin (Regular) Human (Novolin R (Per (09/15/21 18:30) Ed Iv/Invasive Line Start (09/15/21 18:16) Ns Iv 1000 Ml (Sodium Chloride 0.9%) (09/15/21 18:30) Procalcitonin (Pct) (09/15/21 18:57) Accucheck Stat ONCE (09/15/21 19:13) (RICKEY,DELMER K DO) Medications Given in ED Current Medications Medications Dose Ordered Sig/Dorothea Route Start Time Stop Time Status Last Admin Dose Admin Insulin Human Regular 10 unit ONCE ONCE IV 09/15/21 18:30 09/15/21 18:31 DC 09/15/21 18:26 10 UNIT Piperacillin Sod/ Tazobactam Sod 4.5 gm/Sodium Chloride 100 ml @ 200 mls/hr ONCE ONCE IV 09/15/21 17:15 09/15/21 17:44 DC 09/15/21 17:31 200 MLS/HR Vancomycin HCl 1000 mg/Sodium Chloride 250 ml @ 250 mls/hr ONCE ONCE IV 09/15/21 18:00 09/15/21 18:59 DC 09/15/21 18:19 250 MLS/HR (RICKEY,DELMER K DO) Vital Signs/I&O 09/15/21 13:18 Temp 37.2 Pulse 79 Resp 18 B/P (MAP) 132/76 (94) Pulse Ox 98 09/15/21 23:59 Intake Total 1100 ml Balance 1100 ml (RICKEY,DELMER K DO) Vital Signs/I&O Capillary Refill : Less Than 3 Seconds (JANN RADER MD) Blood Pressure Mean: 94 Progress Note #1: Time: 17:22 Progress Note Patient was given fentanyl for pain. Labs were reviewed and patient was noted to have significant hyperglycemia. He is being given a liter of normal saline and we will recheck his blood sugar after that is complete. CT of the soft tissues of the neck was obtained and shows cellulitis of the anterior chin extending to the inferior chin. Findings are suggestive of possible early Rony angina. There is a small consolidation or fluid collection that could be phlegmon or tiny abscess formation. Blood cultures and lactic acid have been ordered and a dose of Zosyn has been ordered for initial antibiotic therapy. I have not been able to contact a maxillofacial surgeon locally and we do not have ENT agricultural extension officer. I have therefore sent imaging to [facility] and am awaiting a consultation. Progress Note #2: Time: 17:50 Progress Note Case was reviewed by the triage coordinator at [facility] who consulted ENT. Because of the firm induration beneath the mouth floor, there is concern for Gabriel's angina. They are recommending transfer to a facility with ENT capability. I have not been able to get in touch with maxillofacial surgery on staff here (no oral surgeon is officially on-call). We also do not have ENT services agricultural extension officer this weekend in [place]. Unfortunately, there is no transfer capacity at [facility] in [facility] in [place], or at [facility]. A transfer request is pending with [facility] in [place]. (JANN RADER MD) Progress Note : Progress Note 1750--ASSUMED CARE FROM DR. RADER, PENDING CALL BACK FROM AND/[facility] HAS BEEN GIVEN IV ANTIBIOTICS, PAIN MEDICATIONS, FLUIDS AND INSULIN RECHECK GLUCOSE--DOWN TO 330 PRIOR TO TRANSFER. UNEVENTFUL ER STAY. (DELMER LANG DO) Diagnostic Imaging Diagonstic Imaging: CT Plain Films/CT/US/NM/MRI: other (Soft tissues neck) Comments CT soft tissues neck viewed by me and report reviewed. See report below: NAME: BENJAMIN CRISTINA [facility] REC#: [id number] PT STATUS: REG ER : 1960 PHYSICIAN: JANN RADER MD ADMIT DATE: 09/15/21/ER Signed Date of Exam:09/15/21 CT NECK (SOFT TISSUE) W PROCEDURE: CT neck soft tissue with contrast. TECHNIQUE: Multiple contiguous axial images were obtained through the neck after the administration of contrast. Auto Exposure Controls were utilized during the CT exam to meet ALARA standards for radiation dose reduction. INDICATION: Dysphagia. Facial abscess. COMPARISON: None. FINDINGS: Soft tissue edema and enhancement overlying the right mandible consistent with cellulitis. There is a linear focus of low attenuation running through this edema centrally which measures up to 0.4 cm in diameter suspicious for phlegmon versus early abscess development. There are numerous maxillary and mandibular dental caries. No large periapical lucencies are identified. No suspicious osteoblastic or lytic changes in the mandible. There is also some edema within the floor of the mouth. No suspicious enhancing mass involving the tongue base. The epiglottis and retropharyngeal space are unremarkable. No suspicious mass or enhancement within the pharynx or larynx. No cervical lymphadenopathy by criteria. The major salivary glands and thyroid are unremarkable. Emphysematous changes in the lung apices. Atherosclerotic disease appears to result in high-grade narrowing of the right internal carotid artery origin. Visualized intracranial contents and orbits are unremarkable. Mild mucosal thickening in the floor of the left maxillary sinus. Mastoids are clear. Hgoesplo-kg-tjnnpp spondylotic changes in the cervical spine are greatest at C4-C7. IMPRESSION: 1. Edema and enhancement in the soft tissues overlying the right mandible consistent with cellulitis. There is a linear focus of hypoattenuation running centrally through this region which could represent phlegmon versus early developing abscess. 2. Numerous dental caries. No large periapical lucencies are identified. No suspicious osteoblastic or lytic changes in the right mandible adjacent to the inflammatory change. No lymphadenopathy by criteria. 3. There appears to be some early edema within the floor of the mouth which can be seen with Rony's angina. No parapharyngeal or retropharyngeal edema. 4. Atherosclerotic disease appears to result in high-grade stenosis of the right internal carotid artery origin. This could be better evaluated with dedicated CTA. Dictated by: Dictated on workstation # [id number] Dict: 09/15/21 1615 Trans: 09/15/21 170 [id number] Interpreted by: FELIX ANGULO MD Electronically signed by: FELIX ANGULO MD 09/15/21 170 (JANN RADER MD) Departure Communication (Admissions) 1156--RECEIVED CALL FROM DR. BRICE, ENT WITH [facility]. ACCEPTS PT FOR TRANSFER--TO GO TO ER. (DELMER LANG DO) Impression Primary Impression: Rony's angina Additional Impression: Hyperglycemia due to type 2 diabetes mellitus Qualified Codes: E11.65 - Type 2 diabetes mellitus with hyperglycemia Disposition: XF SHT-TRM HOSP Condition: Stable Transfer Transfer Reason: Exceeds level of care Time Spoke to Accepting Phy: 18:00 Transfer Time: 19:53 Transfer Facility: [facility] Method of Transfer: EMS (JANN RADER MD) Departure-Patient Inst. Referrals: [facility] (PCP/Family) Primary Care Physician JANN RADER MD Sep 15, 2021 17:23 DELMER LANG DO Sep 15, 2021 18:18
[2021-09-15] MEDS ORDERED: VANCOMYCIN INJECTION 1,000 MG in NS (IVPB) 250 ML IV ONE (18:00)
[2021-09-15] MEDS ORDERED: inSUlin (REGULAR) HUMAN 1 UNIT/0.01 ML (CHARGE PER UNIT) IV ONE (18:30)
== END 2021-09-15 19:53 | disposition short-term general hospital (02) ==
LOC: EDUNIT# 13:13 → ER 13:15
DX: K12.2 Cellulitis and abscess of mouth (principal); E11.65 Type 2 diabetes mellitus with hyperglycemia; G89.29 Other chronic pain; M54.9 Dorsalgia, unspecified; E11.9 Type 2 diabetes mellitus without complications; Z72.0 Tobacco use; Z79.891 Long term (current) use of opiate analgesic
CPT/HCPCS: 36415; 70491; 80053; 82947; 83605; 85025; 86141; 87040; 87077; 87186

== ENCOUNTER 2021-11-14 19:16 | Emergency (ER) | payer MEDICAID ==
[~2021-11-14] VITALS: Ht 165 cm; Wt 51.7 kg
[2021-11-14] MEDS ORDERED: NS IV 1000 ML 1,000 ML IV SCH ×2 (19:30→21:00)
[2021-11-14 19:33] LABS: BASOPHILS # (AUTO) 0.1 10^3/uL (0.0-0.1); BASOPHILS % (AUTO) 1 % (0-10); EOSINOPHILS # (AUTO) 0.1 10^3/uL (0.0-0.3); EOSINOPHILS % (AUTO) 1 % (0-10); HEMATOCRIT 40 % (40-54); HEMOGLOBIN 13.6 g/dL (13.3-17.7); LYMPHOCYTES # (AUTO) 2.4 10^3/uL (1.0-4.0); LYMPHOCYTES % (AUTO) 21 % (12-44); MEAN CORPUSCULAR HEMOGLOBIN 31 pg (25-34); MEAN CORPUSCULAR HGB CONC 34 g/dL (32-36); MEAN CORPUSCULAR VOLUME 91 fL (80-99); MEAN PLATELET VOLUME 11.4 fL (9.0-12.2); MONOCYTES # (AUTO) 1.1 10^3/uL (0.0-1.0); MONOCYTES % (AUTO) 9 % (0-12); NEUTROPHILS # (AUTO) 7.9 10^3/uL (1.8-7.8); NEUTROPHILS % (AUTO) 68 % (42-75); PLATELET COUNT 181 10^3/uL (130-400); WHITE BLOOD COUNT 11.6 10^3/uL (4.3-11.0)
[2021-11-14 19:47] LABS: FIBRIN DEGRADATION PRODUCTS 0.31 UG/ML (0.00-0.49); PROTHROMBIN TIME PATIENT 13.2 SEC (12.2-14.7)
[2021-11-14 19:50] LABS: ERYTHROCYTE SEDIMENTATION RATE 8 MM/HR (0-30)
[2021-11-14 19:57] LABS: BILIRUBIN,URINE NEGATIVE (NEGATIVE); CLARITY,URINE CLEAR; COLOR,URINE YELLOW; GLUCOSE, URINE (UA) 3+ (NEGATIVE); KETONES,URINE TRACE (NEGATIVE); LEUKOCYTE ESTERASE ,URINE NEGATIVE (NEGATIVE); NITRITE,URINE NEGATIVE (NEGATIVE); PH,URINE 6.5 (5-9); PROTEIN,URINE NEGATIVE (NEGATIVE)
[2021-11-14 19:57] LABS: ALANINE AMINOTRANSFERASE 33 U/L (0-55); ALBUMIN 3.2 GM/DL (3.2-4.5); ALKALINE PHOSPHATASE 339 U/L (40-136); AMYLASE 39 U/L (25-125); BUN/CREATININE RATIO 15; CALCIUM 8.4 MG/DL (8.5-10.1); CARBON DIOXIDE 23 MMOL/L (21-32); CHLORIDE 99 MMOL/L (98-107); CREATINE KINASE 40 U/L (30-200); CREATININE SERUM 0.73 MG/DL (0.60-1.30); GFR ESTIMATED 102; LIPASE 118 U/L (8-78); MAGNESIUM 1.7 MG/DL (1.6-2.4); POTASSIUM 3.8 MMOL/L (3.6-5.0); SODIUM 133 MMOL/L (135-145); TOTAL PROTEIN 6.5 GM/DL (6.4-8.2)
[2021-11-14 20:00] LABS: GLUCOSE 416 MG/DL (70-105)
[2021-11-14 20:07] LABS: CREATINE KINASE MB 0.9 NG/ML (<6.6)
[2021-11-14 20:12] LABS: BACTERIA,URINE TRACE /HPF; RBC,URINE 0-2 /HPF; SQUAMOUS EPITHELIAL CELL,UR 0-2 /HPF; WBC,URINE 0-2 /HPF
[2021-11-14 20:15] LABS: AMPHETAMINE SCREEN, URINE POSITIVE (NEGATIVE); BARBITURATE SCREEN URINE NEGATIVE (NEGATIVE); BENZODIAZEPINES SCREEN URINE NEGATIVE (NEGATIVE); CANNABINOID SCREEN, URINE POSITIVE (NEGATIVE); COCAINE SCREEN URINE NEGATIVE (NEGATIVE); METHADONE STAT NEGATIVE (NEGATIVE); METHAMPHETAMINE SCREEN URINE S POSITIVE (NEGATIVE); OPIATE SCREEN URINE NEGATIVE (NEGATIVE); OXYCODONE STAT NEGATIVE (NEGATIVE); PROPOXYPHENE STAT NEGATIVE (NEGATIVE); TRICYCLIC ANTIDEPRESSANTS SCRE NEGATIVE (NEGATIVE)
--- NOTE | 2021-11-14 20:16 | Diagnostic Imaging Report ---
EXAMINATION: Chest 1 view HISTORY: Chest pain COMPARISON: 10/07/2018 FINDINGS: Heart size and pulmonary vasculature are normal. There are mild perihilar and basilar interstitial opacities. No pleural effusion or pneumothorax. The osseous structures are intact. IMPRESSION: 1. Mild perihilar and basilar interstitial opacities which can be seen with pulmonary edema or atypical infection. Dictated by: Dictated on workstation # [id number]
[2021-11-14] MEDS ORDERED: KETOROLAC 30 MG/ML VIAL IVP STA (20:46)
--- NOTE | 2021-11-14 20:56 | ED General ---
General Chief Complaint: General Problems/Pain Stated Complaint: CHEST PAIN, SOB Nursing Triage Note: Pt to ED via EMS from [facility] with multiple complaints including CP, abd pain, and elevated blood sugar. Pt states he has not been taking his medications Source of Information: Patient (SOMEWHAT DIFFICULT HISTORIAN), EMS, Old Records, Other (CLINIC NOTES) History of Present Illness Date Seen by Provider: Nov 14, 2021 Time Seen by Provider: 19:19 Initial Comments PT ARRIVES VIA EMS FROM [facility] PT WITH MULTIPLE COMPLAINTS C/O CHEST WALL PAIN X 4 DAYS C/O GENERALIZED ABDOMINAL PAIN X 4 DAYS C/O SHORTNESS OF BREATH X 4 DAYS NO FEVER SLIGHT COUGH NO VOMITING OR DIARRHEA NO URINARY SYMPTOMS ALSO REPORTS THAT HIS BLOOD SUGAR HAS BEEN READING "HIGH" FOR THE LAST SEVERAL DAYS--HAS NOT TAKEN ANY OF HIS MEDICATIONS FOR AT LEAST 3 DAYS. GIVES NO REASON WHY HE HAS NOT BEEN TAKING HIS MEDICATIONS, OTHER THAN "I FORGOT TO" PT IS HOMELESS AND LIVES IN HIS TRUCK PT SUPPOSED TO BE ON METFORMIN AND GLIPIZIDE FOR DIABETES PT ALSO SMOKES CIGARETTES, WELL METH AND THC ON REGULAR BASIS. HAS HISTORY OF IV COCAINE USE, DENIES ANY COCAINE USE FOR YEARS PT CLAIMS NO RECENT ALCOHOL USE--STATES HE USED TO DRINK TWO 30 PACKS OF BEER A DAY PT HAS HEPATITIS C--NO TREATMENT PT HAS NOT HAD COVID-19 OR FLU VACCINES. PCP: [facility] Allergies and Home Medications Allergies Coded Allergies: No Known Drug Allergies (Unverified , 12/09/17) Patient Home Medication List Home Medication List Reviewed: Yes Amitriptyline HCl (Amitriptyline HCl) 25 Mg Tablet, (Reported) Entered as Reported by: HOWARD CANTRELL on 12/09/17514 Cyclobenzaprine HCl (Cyclobenzaprine HCl) 10 Mg Tablet, (Reported) Entered as Reported by: HOWARD CANTRELL on 12/09/17514 Cyclobenzaprine HCl (Cyclobenzaprine HCl) 10 Mg Tablet, 10 MG PO Q8H PRN for SP ASMS Prescribed by: DEBBIE LOPEZ on 12/15/20 124 Gabapentin (Gabapentin) 300 Mg Capsule, (Reported) Entered as Reported by: HOWARD CANTRELL on 12/20/18 0033 Naproxen (Naprosyn) 500 Mg Tablet, 500 MG PO BID Prescribed by: DEBBIE LOPEZ on 12/15/20 1246 Oxycodone HCl (Oxycodone HCl) 10 Mg Tablet, (Reported) Entered as Reported by: HOWARD CANTRELL on 12/09/17 0515 Sulfamethoxazole/Trimethoprim (Bactrim Ds Tablet) 1 Each Tablet, 1 EACH PO BID Prescribed by: DELMER LANG on 12/20/18 0119 Tramadol HCl (Tramadol HCl) 50 Mg Tablet, (Reported) Entered as Reported by: HOWARD CANTRELL on 12/09/17 0515 Review of Systems Review of Systems Constitutional: no symptoms reported EENTM: no symptoms reported Respiratory: see HPI, short of breath Cardiovascular: see HPI, chest pain Gastrointestinal: see HPI, abdominal pain Genitourinary: no symptoms reported Musculoskeletal: no symptoms reported Skin: no symptoms reported Psychiatric/Neurological: No Symptoms Reported Hematologic/Lymphatic: No Symptoms Reported Immunological/Allergic: no symptoms reported Past Mdtoiwb-Duwjna-Ihrxmw Hx Patient Social History Tobacco Use?: Yes Tobacco type used: Cigarettes Smoking Status: Current Everyday Smoker Substance use?: Yes Substance type: Amphetamines, Methamphetamine, Marijuana Additional substance use comme: +IV COCAINE Alcohol Use?: Yes Alcohol type: Beer, Hard Liquor Immunizations Up To Date Tetanus Booster (TDap): Less than 5yrs Influenza Vaccine Up-to-Date: No; Not Current Seasonal Allergies Seasonal Allergies: No Past Medical History Surgeries: Yes (HERNIA REPAIR; ROTATOR CUFF REPAIR; I&D OF ABSCESSES) Abdominal, Appendectomy, Orthopedic Respiratory: No Cardiac: Yes High Cholesterol Neurological: Yes Headaches /Migraines Genitourinary: No Gastrointestinal: Yes (HEPATITIS C--NO TREATMENT) Musculoskeletal: Yes (CHRONIC NECK & BACK PAIN COMPLAINTS/GENERALIZED PAIN COMPLAINTS) Degenerate Disk Disease, Arthritis, Chronic Back Pain Endocrine: Yes (NON COMPLIANCE) Diabetes, Non-Insulin dep HEENT: No Cancer: No Psychosocial: No Integumentary: Yes (I&D OF ABSCESSES; MULTIPLE TATTOOS) Blood Disorders: No Family Medical History No Pertinent Family Hx SOCIAL HISTORY: -SMOKING--4-5 PPD, NOW DOWN TO LESS THAN 1 PPD -ETOH--HX OF TWO--30 PACKS OF BEER/DAY, NOW "OCCASIONALLY" DRINKS -DRUGS--+ IV COCAINE USE--DENIES USE FOR YEARS, SMOKES METH AND MARIJUANA ON A REGULAR BASIS--SEVERAL TIMES A WEEK OF 11/14/21, PT IS HOMELESS AND LIVES IN HIS VEHICLE Physical Exam Vital Signs Vital Signs - First Documented 11/14/21 19:20 Temp 36.5 Pulse 86 Resp 17 Pulse Ox 100 Capillary Refill : Less Than 3 Seconds Height, Weight, BMI Height: 5'5.00" Weight: 125lbs. 0oz. 56.908871st; 18.00 BMI Method:Stated General Appearance: No Apparent Distress, WD/WN, Thin, Other (UNKEMPT, MALODOROUS. TALKS AT LENGTH. CONSTANTLY PLAYING ON PHONE. MARKEDLY EXAGGERATED PAIN RESPONSE WITH ANY PALPATION, IV STICKS, NASAL SWABS, ETC. ) HEENT: PERRL/EOMI (EYES BLOODSHOT BILATERALLY), Other (POOR DENTITION) Neck: Normal Inspection Respiratory: Normal Breath Sounds, No Accessory Muscle Use, No Respiratory Distress, Other (MARKED, DIFFUSE ANTERIOR CHEST TENDERNESS) Cardiovascular: Regular Rate, Rhythm, No Edema, No JVD, No Murmur, Normal Peripheral Pulses Gastrointestinal: Normal Bowel Sounds, No Pulsatile Mass, Soft; No Rebound; Tenderness (DIFFUSE TENDERNESS) Back: CVA Tenderness (L), CVA Tenderness (R) Extremity: Normal Range of Motion, No Pedal Edema Neurologic/Psychiatric: Alert, Oriented x3, No Motor/Sensory Deficits, special agent fbi II- XII Norm as Tested Skin: Normal Color (PT IS ), Warm/Dry, Tattoos/Piercings (MULTIPLE TATTOOS) Focused Exam Lactate Level 11/14/21 19:35: Lactic Acid Level 1.27 Lactic Acid Level Laboratory Tests Test 11/14/21 19:35 Lactic Acid Level 1.27 MMOL/L (0.50-2.00) Progress/Results/Core Measures Suspected Sepsis SIRS Temperature: Pulse: 86 Respiratory Rate: 17 Laboratory Tests 11/14/21 19:20: White Blood Count 11.6H Blood Pressure / Mean: 11/14/21 19:35: Lactic Acid Level 1.27 Laboratory Tests 11/14/21 19:20: Creatinine 0.73, INR Comment 1.0, Platelet Count 181, Total Bilirubin 1.0 Results/Orders Lab Results Laboratory Tests Test 11/14/21 19:20 11/14/21 19:23 11/14/21 19:24 11/14/21 19:33 Range/Units White Blood Count 11.6 H 4.3-11.0 10^3/uL Red Blood Count 4.35 4.30-5.52 10^6/uL Hemoglobin 13.6 13.3-17.7 g/dL Hematocrit 40 40-54 % Mean Corpuscular Volume 91 80-99 fL Mean Corpuscular Hemoglobin 31 25-34 pg Mean Corpuscular Hemoglobin Concent 34 32-36 g/dL Red Cell Distribution Width 13.2 10.0-14.5 % Platelet Count 181 130-400 10^3/uL Mean Platelet Volume 11.4 9.0-12.2 fL Immature Granulocyte % (Auto) 1 % Neutrophils (%) (Auto) 68 42-75 % Lymphocytes (%) (Auto) 21 12-44 % Monocytes (%) (Auto) 9 0-12 % Eosinophils (%) (Auto) 1 0-10 % Basophils (%) (Auto) 1 0-10 % Neutrophils # (Auto) 7.9 H 1.8-7.8 10^3/uL Lymphocytes # (Auto) 2.4 1.0-4.0 10^3/uL Monocytes # (Auto) 1.1 H 0.0-1.0 10^3/uL Eosinophils # (Auto) 0.1 0.0-0.3 10^3/uL Basophils # (Auto) 0.1 0.0-0.1 10^3/uL Immature Granulocyte # (Auto) 0.1 0.0-0.1 10^3/uL Erythrocyte Sedimentation Rate 8 0-30 MM/HR Prothrombin Time 13.2 12.2-14.7 SEC INR Comment 1.0 0.8-1.4 Activated Partial Thromboplast Time 31 24-35 SEC D-Dimer 0.31 0.00-0.49 UG/ML Sodium Level 133 L 135-145 MMOL/L Potassium Level 3.8 3.6-5.0 MMOL/L Chloride Level 99 98-107 MMOL/L Carbon Dioxide Level 23 21-32 MMOL/L Anion Gap 11 5-14 MMOL/L Blood Urea Nitrogen 11 7-18 MG/DL Creatinine 0.73 0.60-1.30 MG/DL Estimat Glomerular Filtration Rate 102 BUN/Creatinine Ratio 15 Glucose Level 416 *H 70-105 MG/DL Calcium Level 8.4 L 8.5-10.1 MG/DL Corrected Calcium 9.0 8.5-10.1 MG/DL Magnesium Level 1.7 1.6-2.4 MG/DL Total Bilirubin 1.0 0.1-1.0 MG/DL Aspartate Amino Transf (AST/SGOT) 66 H 5-34 U/L Alanine Aminotransferase (ALT/SGPT) 33 0-55 U/L Alkaline Phosphatase 339 H 40-136 U/L Lactate Dehydrogenase 151 125-220 U/L Total Creatine Kinase 40 30-200 U/L Creatine Kinase MB 0.9 <6.6 NG/ML Myoglobin 25.8 10.0-92.0 NG/ML Troponin I < 0.028 <0.028 NG/ML C-Reactive Protein High Sensitivity 1.12 H 0.00-0.50 MG/DL B-Type Natriuretic Peptide 22.2 <100.0 PG/ML Total Protein 6.5 6.4-8.2 GM/DL Albumin 3.2 3.2-4.5 GM/DL Amylase Level 39 25-125 U/L Lipase 118 H 8-78 U/L Beta-Hydroxybutyrate (Chem panel) 0.31 H 0.00-0.27 MMOL/L Procalcitonin 0.13 H <0.10 NG/ML Serum Alcohol 12 H <10 MG/DL Blood Gas Puncture Site LRAD Blood Gas Patient Temperature 36.8 Arterial Blood pH 7.41 7.37-7.43 Arterial Blood Partial Pressure CO2 35 35-45 MMHG Arterial Blood Partial Pressure O2 78 L 79-93 MMHG Arterial Blood HCO3 23 23-27 MMOL/L Arterial Blood Total CO2 23.6 21.0-31.0 MMOL/L Arterial Blood Oxygen Saturation 98 94-100 % Arterial Blood Base Excess -1.7 -2.5-2.5 MMOL/L Anurag Test POS Blood Gas Ventilator Setting NO Blood Gas Inspired Oxygen ROOM AIR Glucometer 376 H 70-110 MG/DL Influenza Type A (RT-PCR) Not Detected Not Detecte Influenza Type B (RT-PCR) Not Detected Not Detecte SARS-CoV-2 RNA (RT-PCR) Not Detected Not Detecte Test 11/14/21 19:35 11/14/21 19:43 11/14/21 20:51 11/14/21 21:56 Range/Units Lactic Acid Level 1.27 0.50-2.00 MMOL/L Urine Color YELLOW Urine Clarity CLEAR Urine pH 6.5 5-9 Urine Specific [place] 1.015 L 1.016-1.022 Urine Protein NEGATIVE NEGATIVE Urine Glucose (UA) 3+ H NEGATIVE Urine Ketones TRACE H NEGATIVE Urine Nitrite NEGATIVE NEGATIVE Urine Bilirubin NEGATIVE NEGATIVE Urine Urobilinogen 1.0 < = 1.0 MG/DL Urine Leukocyte Esterase NEGATIVE NEGATIVE Urine RBC (Auto) NEGATIVE NEGATIVE Urine RBC 0-2 /HPF Urine WBC 0-2 /HPF Urine Squamous Epithelial Cells 0-2 /HPF Urine Crystals NONE /LPF Urine Bacteria TRACE /HPF Urine Casts NONE /LPF Urine Mucus NEGATIVE /LPF Urine Culture Indicated NO Urine Opiates Screen NEGATIVE NEGATIVE Urine Oxycodone Screen NEGATIVE NEGATIVE Urine Methadone Screen NEGATIVE NEGATIVE Urine Propoxyphene Screen NEGATIVE NEGATIVE Urine Barbiturates Screen NEGATIVE NEGATIVE Ur Tricyclic Antidepressants Screen NEGATIVE NEGATIVE Urine Phencyclidine Screen NEGATIVE NEGATIVE Urine Amphetamines Screen POSITIVE H NEGATIVE Urine Methamphetamines Screen POSITIVE H NEGATIVE Urine Benzodiazepines Screen NEGATIVE NEGATIVE Urine Cocaine Screen NEGATIVE NEGATIVE Urine Cannabinoids Screen POSITIVE H NEGATIVE Glucometer 276 H 70-110 MG/DL My Orders Orders - DELMER LANG DO Ed Iv/Invasive Line Start (11/14/21:) Ekg Tracing (11/14/21:) Catheter(Urinary) Insert & Ass (11/14/21 19:23) Monitor-Rhythm Ecg Trace Only (11/14/21:) Chest 1 View, Ap/Pa Only (11/14/21:) Alcohol (11/14/21:) Amylase (11/14/21:) Bnp Vandana (11/14/21:) Cbc With Automated Diff (11/14/21:) Comprehensive Metabolic Panel (11/14/21:) Creatine Kinase (11/14/21:) Creatine Kinase Mb (11/14/21:) Hs C Reactive Protein (11/14/21:) Fibrin Degradation Products (11/14/21:) Drug Screen Stat (Urine) (11/14/21:) Lactic Acid Analyzer (11/14/21:) Lipase (11/14/21:) Magnesium (11/14/21:) Protime With Inr (11/14/21:) Partial Thromboplastin Time (11/14/21:) Ua Culture If Indicated (2/15/22 19:23) Erythrocyte Sedimentation Rate (11/14/21 19:23) Myoglobin Serum (11/14/21 19:23) Troponin I [place] (11/14/21 19:23) Ed Iv/Invasive Line Start (11/14/21 19:23) Ns Iv 1000 Ml (Sodium Chloride 0.9%) (11/14/21 19:30) Arterial Blood Gas (11/14/21:) Accucheck Stat ONCE (11/14/21 19:23) Procalcitonin (Pct) (11/14/21 19:23) LDH (11/14/21:23) Covid 19 Inhouse Test (11/14/21:23) Influenza A And B By Pcr (11/14/21:) Isolation Central Supply Req (11/14/21 19:23) Beta Hydroxybutyrate (11/14/21 20:07) Hemoglobin A1c (11/14/21 20:07) Ct Margaret Chest/Noang Abd-Pelv W (11/14/21 20:45) Ed Iv/Invasive Line Start (11/14/21 20:46) Ns Iv 1000 Ml (Sodium Chloride 0.9%) (11/14/21 21:00) Ketorolac Injection (Toradol Injection) (11/14/21 20:46) Iohexol Injection (Omnipaque 350 Mg/Ml 1 (11/14/21 21:00) Received Contrast (Hold Metformin- Contr (11/14/21 21:00) Ns (Ivpb) (Sodium Chloride 0.9% Ivpb Bag (11/14/21 21:00) Accucheck Stat ONCE (11/14/21 21:44) Medications Given in ED Current Medications Medications Dose Ordered Sig/Dorothea Route Start Time Stop Time Status Last Admin Dose Admin Iohexol 100 ml ONCE ONCE IV 11/14/21 21:00 11/14/21 21:01 DC 11/14/21 21:03 58 ML Sodium Chloride 100 ml ONCE ONCE IV 11/14/21 21:00 11/14/21 21:01 DC 11/14/21 21:03 70 ML Vital Signs/I&O 11/14/21 19:20 Temp 36.5 Pulse 86 Resp 17 B/P (MAP) Pulse Ox 100 11/15/21 00:00 Intake Total 2425 ml Balance 2425 ml Capillary Refill : Less Than 3 Seconds Point of Care Testing Finger Stick Blood Glucose: 376 Progress Note : Progress Note UNEVENTFUL ER STAY PT HAD NO COMPLAINTS AND SLEPT FOR MOST OF ER STAY GIVEN IV FLUIDS--BLOOD GLUCOSE DOWN TO 276 2217--AFTER INITIALLY AGREEING TO ADMIT, PT IS NOW REFUSING TO BE ADMITTING AND IS SIGNING OUT AMA, RISKS/BENEFITS REVIEWED. ECG Initial ECG Impression Date: Nov 14, 2021 Initial ECG Impression Time: 19:33 Initial ECG Rate: 83 Initial ECG Rhythm: Normal Sinus Diagnostic Imaging Comments CXR--PER RADIOLOGIST REPORT AT 2044 FINDINGS: Heart size and pulmonary vasculature are normal. There are mild perihilar and basilar interstitial opacities. No pleural effusion or pneumothorax. The osseous structures are intact. IMPRESSION: 1. Mild perihilar and basilar interstitial opacities which can be seen with pulmonary edema or atypical infection. CT CHEST ANGIO/ABDOMEN AND PELVIS--PER RADIOLOGIST REPORT AT 2127 FINDINGS: Vascular: No filling defects within the pulmonary arteries. Thoracic aorta is normal in caliber. Calcification of the aorta and coronary vessels. Thyroid: The thyroid is normal. Mediastinum: Heart size is normal without significant pericardial effusion. No suspicious lymphadenopathy. Lungs and airways: There are background emphysematous changes of the lungs. Focal fibrosis and bronchiectasis within the right upper lobe. Mild peripheral and apical scarring. The airways are patent. Solid organs: The liver is normal without focal lesion. There is a prominent stone within the gallbladder. Mild gallbladder wall enhancement and possible pericholecystic fluid. There is no biliary ductal dilation. Pancreas is normal. Spleen is normal. Adrenal glands are normal. The kidneys are normal without hydronephrosis. Bowel: The stomach and small bowel are normal without obstruction. Colon is unremarkable. No findings of acute appendicitis. Peritoneum: There is no intraperitoneal free fluid or free air. No suspicious lymphadenopathy. Vasculature: Calcification of the aorta without aneurysm. Musculoskeletal: No suspicious osseous lesion or compression fracture. Pelvis: The prostate gland is normal. The urinary bladder is normal. IMPRESSION: 1. No findings of pulmonary embolus. 2. No acute abnormality in the chest. 3. Cholelithiasis with mild gallbladder wall enhancement and possible pericholecystic fluid. Consider dedicated gallbladder ultrasound if there are any signs or symptoms of acute cholecystitis. Reviewed: Reviewed by De Departure Communication (Admissions) 2204--SPOKE WITH DR. LAWTON, SURGEON, HE WILL SEE PT IN CONSULT AND PLAN ON TAKING TO SURGERY TOMORROW 2210--SPOKE WITH DR. ANTHONY, HOSPITALIST FOR [facility], ACCEPTS PT FOR ADMIT Impression Primary Impression: Left against medical advice Additional Impressions: Cholelithiasis and cholecystitis without obstruction Uncontrolled diabetes mellitus Non-compliance Methamphetamine use Homeless Disposition: 07 AGAINST MEDICAL ADVICE Condition: Against Medical Advice Departure-Patient Inst. Referrals: [facility]/ (PCP/Family) Primary Care Physician DELMER LANG DO Nov 14, 2021 20:55
[2021-11-14] MEDS ORDERED: IOHEXOL 350 MG/ML 100 ML (OMNIPAQUE 350) VIAL IV ONE (21:00)
[2021-11-14] MEDS ORDERED: HOLD METFORMIN - RECEIVED CONTRAST 20 ML VIAL IV SCH (21:00)
[2021-11-14] MEDS ORDERED: NS 100 ML (IVPB) BAG IV ONE (21:00)
[2021-11-14 21:18] LABS: ABG BASE EXCESS -1.7 MMOL/L (-2.5-2.5); ABG OXYGEN SATURATION 98 % (94-100); ABG PCO2 35 MMHG (35-45); ABG PH 7.41 (7.37-7.43); ABG PO2 78 MMHG (79-93); ABG TCO2 23.6 MMOL/L (21.0-31.0)
[2021-11-14 21:19] LABS: ALLENS TEST POS; INSPIRED O2 ROOM AIR; PATIENT TEMP 36.8; VENTILATOR NO
--- NOTE | 2021-11-14 21:23 | Diagnostic Imaging Report ---
EXAMINATION: CT angiography of the chest, CT of the abdomen and pelvis. TECHNIQUE: Contrast enhanced thin section helical images were obtained through the chest, abdomen and pelvis with intravenous contrast timed for the optimal opacification of the arterial structures of the chest per CTA protocol. Post-processing, reconstructions and interpretation of angiographic images of the vessels was performed. 3D MIP reconstructions were performed and reviewed. All CT scans use one or more of the following dose optimizing techniques: automated exposure control, MA and/or KvP adjustment based on a patient size and exam type, or iterative reconstruction. HISTORY: Chest and abdominal pain COMPARISON: None available. FINDINGS: Vascular: No filling defects within the pulmonary arteries. Thoracic aorta is normal in caliber. Calcification of the aorta and coronary vessels. Thyroid: The thyroid is normal. Mediastinum: Heart size is normal without significant pericardial effusion. No suspicious lymphadenopathy. Lungs and airways: There are background emphysematous changes of the lungs. Focal fibrosis and bronchiectasis within the right upper lobe. Mild peripheral and apical scarring. The airways are patent. Solid organs: The liver is normal without focal lesion. There is a prominent stone within the gallbladder. Mild gallbladder wall enhancement and possible pericholecystic fluid. There is no biliary ductal dilation. Pancreas is normal. Spleen is normal. Adrenal glands are normal. The kidneys are normal without hydronephrosis. Bowel: The stomach and small bowel are normal without obstruction. Colon is unremarkable. No findings of acute appendicitis. Peritoneum: There is no intraperitoneal free fluid or free air. No suspicious lymphadenopathy. Vasculature: Calcification of the aorta without aneurysm. Musculoskeletal: No suspicious osseous lesion or compression fracture. Pelvis: The prostate gland is normal. The urinary bladder is normal. IMPRESSION: 1. No findings of pulmonary embolus. 2. No acute abnormality in the chest. 3. Cholelithiasis with mild gallbladder wall enhancement and possible pericholecystic fluid. Consider dedicated gallbladder ultrasound if there are any signs or symptoms of acute cholecystitis. Dictated by: Dictated on workstation # [id number]
== END 2021-11-14 22:22 | disposition left against medical advice (07) ==
LOC: EDUNIT# 19:16 → ER 19:18
DX: K80.10 Calculus of gallbladder with chronic cholecystitis without obstruction (principal); E11.65 Type 2 diabetes mellitus with hyperglycemia; F15.90 Other stimulant use, unspecified, uncomplicated; M54.9 Dorsalgia, unspecified; G89.29 Other chronic pain; F17.210 Nicotine dependence, cigarettes, uncomplicated; Z91.19 Patient's noncompliance with other medical treatment and regimen; Z20.822 Contact with and (suspected) exposure to COVID-19; Z59.00 Homelessness unspecified; Z79.891 Long term (current) use of opiate analgesic
CPT/HCPCS: 71045; 71275; 74177; 80053; 80306; 81000; 82010; 82150; 82550; 82553; 82805; 82947; 83036; 83605; 83615; 83690; 83735; 83874; 83880; 84145; 84484; 85025; 85379; 85610; 85652; 85730; 86141; 87636; 93005; 93041; 99285; G0480; 36415; 80320

== ENCOUNTER 2022-07-16 13:02 | Emergency (ER) | payer MEDICAID ==
[~2022-07-16] VITALS: Ht 165 cm; Wt 49.0 kg
[2022-07-16] MEDS ORDERED: LACTATED RINGERS 1,000 ML IV SCH (13:15)
[2022-07-16 13:23] LABS: BASOPHILS # (AUTO) 0.1 10^3/uL (0.0-0.1); BASOPHILS % (AUTO) 1 % (0-10); EOSINOPHILS # (AUTO) 0.2 10^3/uL (0.0-0.3); EOSINOPHILS % (AUTO) 1 % (0-10); HEMATOCRIT 44 % (40-54); HEMOGLOBIN 15.4 g/dL (13.3-17.7); LYMPHOCYTES # (AUTO) 3.4 10^3/uL (1.0-4.0); LYMPHOCYTES % (AUTO) 27 % (12-44); MEAN CORPUSCULAR HEMOGLOBIN 31 pg (25-34); MEAN CORPUSCULAR HGB CONC 35 g/dL (32-36); MEAN CORPUSCULAR VOLUME 88 fL (80-99); MEAN PLATELET VOLUME 11.4 fL (9.0-12.2); MONOCYTES # (AUTO) 0.9 10^3/uL (0.0-1.0); MONOCYTES % (AUTO) 7 % (0-12); NEUTROPHILS # (AUTO) 8.1 10^3/uL (1.8-7.8); NEUTROPHILS % (AUTO) 64 % (42-75); PLATELET COUNT 199 10^3/uL (130-400); WHITE BLOOD COUNT 12.7 10^3/uL (4.3-11.0)
[2022-07-16 13:28] LABS: ABG BASE EXCESS 2.5 MMOL/L (-2.5-2.5); ABG OXYGEN SATURATION 85 % (94-100); ABG PCO2 52 MMHG (35-45); ABG PH 7.34 (7.37-7.43); ABG PO2 49 MMHG (79-93); ABG TCO2 29.5 MMOL/L (21.0-31.0); ALBUMIN 3.6 GM/DL (3.2-4.5); PATIENT TEMP 36.3; VENTILATOR NO
[2022-07-16 13:29] LABS: CALCIUM 8.9 MG/DL (8.5-10.1)
[2022-07-16 13:31] LABS: TOTAL PROTEIN 7.1 GM/DL (6.4-8.2)
[2022-07-16 13:33] LABS: BILIRUBIN,TOTAL 0.5 MG/DL (0.1-1.0)
[2022-07-16 13:34] LABS: CREATININE SERUM 0.81 MG/DL (0.60-1.30)
[2022-07-16 13:36] LABS: BILIRUBIN,URINE NEGATIVE (NEGATIVE); CLARITY,URINE CLEAR; COLOR,URINE YELLOW; GLUCOSE, URINE (UA) 3+ (NEGATIVE); KETONES,URINE NEGATIVE (NEGATIVE); LEUKOCYTE ESTERASE ,URINE NEGATIVE (NEGATIVE); NITRITE,URINE NEGATIVE (NEGATIVE); PROTEIN,URINE NEGATIVE (NEGATIVE)
[2022-07-16 13:49] LABS: BACTERIA,URINE TRACE /HPF; RBC,URINE 0-2 /HPF; WBC,URINE 0-2 /HPF
[2022-07-16] MEDS ORDERED: inSUlin (REGULAR) HUMAN 1 UNIT/0.01 ML (CHARGE PER UNIT) IV ONE (14:00)
--- NOTE | 2022-07-16 14:41 | ED General ---
General Chief Complaint: Glucose Problems Stated Complaint: DIABETES/HIGH BLOOD SUGAR Nursing Triage Note: ARRIVED VIA EMS FROM [facility] WITH COMPLAINTS OF HIGH BLOOD SUGAR. PT IS HOMELESS AND DOES NOT HAVE INSULIN. History of Present Illness Date Seen by Provider: Jul 16, 2022 Time Seen by Provider: 13:45 Initial Comments Patient sent by EMS from [facility] for blood sugar that was too high to read on their machine. patient presented there looking for "commodities". Patient reports being homeless has not been eating regularly and being out of his medication for at least a month. Is known to be a diabetic type II. Timing/Duration: 1-3 Hours Severity: Moderate Associated Systoms: Denies Symptoms Allergies and Home Medications Allergies Coded Allergies: No Known Drug Allergies (Unverified , 12/09/17) Patient Home Medication List Home Medication List Reviewed: Yes Amitriptyline HCl (Amitriptyline HCl) 25 Mg Tablet, (Reported) Entered as Reported by: HOWARD CANTRELL on 12/09/17514 Cyclobenzaprine HCl (Cyclobenzaprine HCl) 10 Mg Tablet, (Reported) Entered as Reported by: HOWARD CANTRELL on 12/09/17514 Cyclobenzaprine HCl (Cyclobenzaprine HCl) 10 Mg Tablet, 10 MG PO Q8H PRN for SPASMS Prescribed by: DEBBIE LOPEZ on 12/15/20 1246 Gabapentin (Gabapentin) 300 Mg Capsule, (Reported) Entered as Reported by: HOWARD CANTRELL on 12/20/18 0033 Naproxen (Naprosyn) 500 Mg Tablet, 500 MG PO BID Prescribed by: DEBBIE LOPEZ on 12/15/20 1246 Oxycodone HCl (Oxycodone HCl) 10 Mg Tablet, (Reported) Entered as Reported by: HOWARD CANTRELL on 12/09/17514 Sulfamethoxazole/Trimethoprim (Bactrim Ds Tablet) 1 Each Tablet, 1 EACH PO BID Prescribed by: DELMER LANG on 12/20/18 0119 Tramadol HCl (Tramadol HCl) 50 Mg Tablet, (Reported) Entered as Reported by: HOWARD CANTRELL on 12/09/17514 Review of Systems Review of Systems Constitutional: weight loss Respiratory: no symptoms reported Cardiovascular: no symptoms reported Genitourinary: pain (Left flank), other (Increased output) Musculoskeletal: no symptoms reported Skin: no symptoms reported Psychiatric/Neurological: No Symptoms Reported Hematologic/Lymphatic: No Symptoms Reported Immunological/Allergic: no symptoms reported Past Ghiqlsh-Mztkrb-Bftmqm Hx Patient Social History Tobacco Use?: Yes Tobacco type used: Cigarettes Smokeless Tobacco Frequency: Current Everyday User Substance use?: No Alcohol Use?: No Immunizations Up To Date Tetanus Booster (TDap): Less than 5yrs Seasonal Allergies Seasonal Allergies: No Past Medical History Surgeries: Yes (HERNIA REPAIR; ROTATOR CUFF REPAIR; I&D OF ABSCESSES) Abdominal, Appendectomy, Orthopedic Respiratory: No Cardiac: Yes High Cholesterol Neurological: Yes Headaches /Migraines Genitourinary: No Gastrointestinal: Yes (HEPATITIS C--NO TREATMENT) Musculoskeletal: Yes (CHRONIC NECK & BACK PAIN COMPLAINTS/GENERALIZED PAIN COMPLAINTS) Degenerate Disk Disease, Arthritis, Chronic Back Pain Endocrine: Yes (NON COMPLIANCE) Diabetes, Non-Insulin dep HEENT: No Cancer: No Psychosocial: No Integumentary: Yes (I&D OF ABSCESSES; MULTIPLE TATTOOS) Blood Disorders: No Family Medical History No Pertinent Family Hx SOCIAL HISTORY: -SMOKING--4-5 PPD, NOW DOWN TO LESS THAN 1 PPD -ETOH--HX OF TWO--30 PACKS OF BEER/DAY, NOW "OCCASIONALLY" DRINKS -DRUGS--+ IV COCAINE USE--DENIES USE FOR YEARS, SMOKES METH AND MARIJUANA ON A REGULAR BASIS--SEVERAL TIMES A WEEK OF 11/14/21, PT IS HOMELESS AND LIVES IN HIS VEHICLE Physical Exam Vital Signs Vital Signs - First Documented 07/16/22 13:02 Temp 36.3 Pulse 77 Resp 16 B/P (MAP) 129/71 (90) Pulse Ox 99 O2 Delivery Room Air Capillary Refill : Less Than 3 Seconds Height, Weight, BMI Height: 5'5.00" Weight: 125lbs. 0oz. [id number]; 17.00 BMI Method:Stated General Appearance: No Apparent Distress; No WD/WN; Cachetic Respiratory: Lungs Clear, Normal Breath Sounds, No Accessory Muscle Use, No Respiratory Distress Cardiovascular: Regular Rate, Rhythm, No Edema Gastrointestinal: Soft, Other (Thin) Back: Normal Inspection, CVA Tenderness (L) Extremity: Normal Range of Motion, No Calf Tenderness, No Pedal Edema Neurologic/Psychiatric: Alert, Oriented x3, Other (Slow to respond) Skin: Warm/Dry; No Diaphoresis Progress/Results/Core Measures Suspected Sepsis SIRS Temperature: Pulse: 77 Respiratory Rate: 16 Laboratory Tests 07/16/22 13:20: White Blood Count 12.7H Blood Pressure 129 /71 Mean: 90 Laboratory Tests 07/16/22 13:20: Creatinine 0.81, Platelet Count 199, Total Bilirubin 0.5 Results/Orders Lab Results Laboratory Tests Test 07/16/22 13:16 07/16/22 13:20 07/16/22 13:33 07/16/22 14:39 Range/Units Glucometer 555 *H 395 H 70-110 MG/DL White Blood Count 12.7 H 4.3-11.0 10^3/uL Red Blood Count 5.02 4.30-5.52 10^6/uL Hemoglobin 15.4 13.3-17.7 g/dL Hematocrit 44 40-54 % Mean Corpuscular Volume 88 80-99 fL Mean Corpuscular Hemoglobin 31 25-34 pg Mean Corpuscular Hemoglobin Concent 35 32-36 g/dL Red Cell Distribution Width 12.7 10.0-14.5 % Platelet Count 199 130-400 10^3/uL Mean Platelet Volume 11.4 9.0-12.2 fL Immature Granulocyte % (Auto) 1 % Neutrophils (%) (Auto) 64 42-75 % Lymphocytes (%) (Auto) 27 12-44 % Monocytes (%) (Auto) 7 0-12 % Eosinophils (%) (Auto) 1 0-10 % Basophils (%) (Auto) 1 0-10 % Neutrophils # (Auto) 8.1 H 1.8-7.8 10^3/uL Lymphocytes # (Auto) 3.4 1.0-4.0 10^3/uL Monocytes # (Auto) 0.9 0.0-1.0 10^3/uL Eosinophils # (Auto) 0.2 0.0-0.3 10^3/uL Basophils # (Auto) 0.1 0.0-0.1 10^3/uL Immature Granulocyte # (Auto) 0.1 0.0-0.1 10^3/uL Blood Gas Puncture Site L AC Blood Gas Patient Temperature 36.3 Arterial Blood pH 7.34 *L 7.37-7.43 Arterial Blood Partial Pressure CO2 52 H 35-45 MMHG Arterial Blood Partial Pressure O2 49 L 79-93 MMHG Arterial Blood HCO3 28 H 23-27 MMOL/L Arterial Blood Total CO2 29.5 21.0-31.0 MMOL/L Arterial Blood Oxygen Saturation 85 L 94-100 % Arterial Blood Base Excess 2.5 -2.5-2.5 MMOL/L Anurag Test NA Blood Gas Ventilator Setting NO Blood Gas Inspired Oxygen NA Sodium Level 124 *L 135-145 MMOL/L Potassium Level 4.0 3.6-5.0 MMOL/L Chloride Level 92 L 98-107 MMOL/L Carbon Dioxide Level 24 21-32 MMOL/L Anion Gap 8 5-14 MMOL/L Blood Urea Nitrogen 16 7-18 MG/DL Creatinine 0.81 0.60-1.30 MG/DL Estimat Glomerular Filtration Rate 99 BUN/Creatinine Ratio 20 Glucose Level 683 *H 70-105 MG/DL Calcium Level 8.9 8.5-10.1 MG/DL Corrected Calcium 9.2 8.5-10.1 MG/DL Total Bilirubin 0.5 0.1-1.0 MG/DL Aspartate Amino Transf (AST/SGOT) 54 H 5-34 U/L Alanine Aminotransferase (ALT/SGPT) 36 0-55 U/L Alkaline Phosphatase 367 H 40-136 U/L Total Protein 7.1 6.4-8.2 GM/DL Albumin 3.6 3.2-4.5 GM/DL Urine Color YELLOW Urine Clarity CLEAR Urine pH 5.0 5-9 Urine Specific [place] <=1.005 1.016-1.022 Urine Protein NEGATIVE NEGATIVE Urine Glucose (UA) 3+ H NEGATIVE Urine Ketones NEGATIVE NEGATIVE Urine Nitrite NEGATIVE NEGATIVE Urine Bilirubin NEGATIVE NEGATIVE Urine Urobilinogen 0.2 < = 1.0 MG/DL Urine Leukocyte Esterase NEGATIVE NEGATIVE Urine RBC (Auto) NEGATIVE NEGATIVE Urine RBC 0-2 /HPF Urine WBC 0-2 /HPF Urine Squamous Epithelial Cells 2-5 /HPF Urine Crystals NONE /LPF Urine Bacteria TRACE /HPF Urine Casts NONE /LPF Urine Mucus NEGATIVE /LPF Urine Culture Indicated NO My Orders Orders - LIANET SIGALA APRN Cbc With Automated Diff (07/16/22 13:09) Comprehensive Metabolic Panel (07/16/22 13:09) Urinalysis (07/16/22 13:09) Arterial Blood Gas (07/16/22 13:09) Lactated Ringers (Lr 1000 Ml Iv Solution (07/16/22 13:15) Ed Iv/Invasive Line Start (07/16/22 13:09) Ekg Tracing (07/16/22 13:22) Cho 60g/M 3snack (16-2000 Jett) (07/16/22 Lunch) Insulin (Regular) Human (Novolin R (Per (07/16/22 14:00) Insulin Determir (Per Unit) (Levemir (Pe (07/16/22 14:00) Medications Given in ED Current Medications Medications Dose Ordered Sig/[place] Route Start Time Stop Time Status Last Admin Dose Admin Insulin Detemir 10 unit ONCE ONCE SQ 07/16/22 14:00 07/16/22 14:01 DC 07/16/22 14:03 10 UNIT Insulin Human Regular 10 unit ONCE ONCE IV 07/16/22 14:00 07/16/22 14:01 DC 07/16/22 14:04 10 UNIT Vital Signs/I&O 07/16/22 13:02 Temp 36.3 Pulse 77 Resp 16 B/P (MAP) 129/71 (90) Pulse Ox 99 O2 Delivery Room Air Capillary Refill : Less Than 3 Seconds Blood Pressure Mean: 90 Progress Note : Time: 14:47 Progress Note corrected sodium 137. ECG Initial ECG Impression Date: Jul 16, 2022 Initial ECG Impression Time: 14:48 Initial ECG Rate: 75 Initial ECG Rhythm: Normal Sinus Initial ECG Intervals: Normal Initial ECG Impression: Normal Departure Impression Primary Impression: Hyperglycemia Disposition: 01 HOME, SELF-CARE Condition: Improved Departure-Patient Inst. Decision time for Depature: 14:51 Referrals: [facility] (PCP/Family) Primary Care Physician Scripts Metformin HCl (Metformin HCl) 1,000 Mg Tablet 1000 MG PO BID, #60 TAB Prov: LIANET SIGALA APRN 07/16/22 LIANET SIGALA APRN Jul 16, 2022 14:41
[2022-07-16] MEDS ORDERED: METF-399 PO (14:53)
[2022-07-16 15:08] VITALS: BP 112/69
== END 2022-07-16 15:08 | disposition home or self-care (01) ==
LOC: EDUNIT# 13:02 → ER 13:03
DX: E11.65 Type 2 diabetes mellitus with hyperglycemia (principal); F17.210 Nicotine dependence, cigarettes, uncomplicated; Z91.14 Patient's other noncompliance with medication regimen; Z28.310 Unvaccinated for COVID-19
CPT/HCPCS: 36415; 80053; 81000; 82805; 82947; 85025; 93005